=== PATIENT | female | born 2005 | race Caucasian/White ===

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

== ENCOUNTER 2024-05-25 16:09 | Emergency (ER) | payer OTHER, SELFPAY ==
[2024-05-25 16:18] VITALS: BP 133/86; PULSE 109; RESP 18; TEMP 36.9; O2SAT 100
--- NOTE | 2024-05-25 16:24 | ED.NAVMDI ---
HPI - Nausea/Vomiting/Diarrhea General Chief complaint: Nausea/Vomiting/Diarrhea Stated complaint: nausea/diarrhea History of Present Illness HPI Narrative: Patient presents requesting a work note. Patient states she started in with nausea and emesis x1 after she got home from work last night. Patient states she is tolerating liquids fairly well. No diarrhea no constipation no body aches and no fever nontoxic looking individual in the room. Related Data Allergies Allergy/AdvReac Type Severity Reaction Status Date / Time No Known Allergies Allergy Unverified 08/20/19 09:08 Review of Systems Review of Systems: CONSTITUTIONAL: Denies chills, or sweats. Reports fever and generalized body aches EYES: Denies visual changes, redness, or discharge. ENT: Denies otalgia. Reports nasal congestion runny nose and sore throat CARDIOVASCULAR: Denies chest pain, palpitations, or edema. RESPIRATORY: Denies dyspnea. Reports occasional cough GASTROINTESTINAL: Denies abdominal pain, nausea, vomiting, or diarrhea. GENITOURINARY: Denies dysuria or hematuria. SKIN: Denies rash or itching. MUSCULOSKELETAL: Denies back pain, joint pain, or myalgia. Reports generalized body aches NEUROLOGIC: Denies headache, numbness, or weakness. PSYCHIATRIC: Denies anxiety or depression. [facility] Past Medical History Medical History (Updated 05/25/24 @ 16:25 by BRENNEN Barakat) Depression Ear infection Strep throat Social History Social History Living arrangements: with family Occupation/Education: student Gender identity (if verbalized by the patient): Female Comments At time of signature, agree with nursing past medical, surgical, social and family history. There is no relevant family history pertinent to the presenting complaint Exam Narrative: The patient is a well-developed, well-nourished in no acute distress. SKIN: Skin is warm and dry without erythema, swelling or exudate. There is good turgor. No tenting. HEAD: Atraumatic. Normocephalic. No temporal or scalp tenderness. EYES: Moist and bright. Sclera and conjunctivae normal. No discharge. PERRLA. Extraocular motions intact. Gross visual acuity intact. EARS: Pinna is normal shape and contour. Clear external auditory canals. TM pearly ivan with good cone of light, no erythema or suppuration. Bilateral cerumen noted no gross hearing deficit. NOSE: pink, moist mucosa with good air movement. Clear rhinorrhea without nasal flaring. Septum midline. Mouth: moist mucous membranes. THROAT; mild erythema noted to posterior oropharynx with moderate postnasal drainage. Without exudate or ulceration.. Uvula midline. Normal movement of soft palate. NECK: Supple and nontender with full range of motion without discomfort. No meningeal signs. LUNGS: Equal and bilateral breath sounds without wheezes, rales or rhonchi. CHEST: The chest wall is without retractions or use of accessory muscles. HEART: Has a regular rate and rhythm without murmur, gallops, click or rub. ABDOMEN: Soft, nontender with positive active bowel sounds. No rebound tenderness. EXTREMITIES: Without cyanosis, clubbing or edema. Equal 2+ distal pulses and 2 second capillary refill noted. NEUROLOGIC: alert, active, . The patient moves all extremities with normal muscle strength. Normal muscle tone is noted. Normal coordination is noted. NO focal neurological findings noted. Course Course Level of Care: Express Care Visit Vital Signs Vital signs: Vital Signs Temperature 36.9 C 05/25/24 16:18 Pulse Rate 109 H 05/25/24 16:18 Respiratory Rate 18 05/25/24 16:18 Blood Pressure 133/86 05/25/24 16:18 Pulse Oximetry 100 05/25/24 16:18 Oxygen Delivery Room Air 05/25/24 16:18 Temperature 36.9 C 05/25/24 16:18 Pulse Rate 109 H 05/25/24 16:18 Respiratory Rate 18 05/25/24 16:18 Blood Pressure 133/86 05/25/24 16:18 Pulse Oximetry 100 05/25/24 16:18 Oxygen Delivery Room Air 05/25/24 16:18 Please MELISSA schedule a followup visit with your personal physician for further evaluation and treatment. Including recheck and discussion of your blood pressure. If your symptoms persist, change or worsen significantly before you can contact your personal physician then please, without delay, go to the emergency department for further evaluation Discharge Plan Discharge Clinical Impression: Nausea alone Patient Disposition: Home, Self-Care Condition: Stable Instructions: Antibiotic Form Additional Instructions: Clear liquids for the next 8-10 hours, then advance to a bland diet as tolerated A bland diet can consist of--BRAT diet which is bananas, rice, applesauce, and toast Avoid fried, greasy, fatty, fried foods Avoid caffeine, nicotine, and alcohol Return to your regular diet in the next 3-4 days Medication as directed for nausea and vomiting -If you have any worsening of symptoms or any other concerns please go to the ED immediately. Patient Language: Japanese Prescriptions: New ondansetron 4 mg tablet,disintegrating 4 mg PO Q8H PRN (Reason: nausea and vomiting) Qty: 10 0RF Follow-up/Referrals: Guillaume,Leticia August MD [Primary Care Provider] - Stand Alone Forms: Work/School Release IP
--- OUTSIDE RECORDS SUMMARY | 2024-05-29 23:31 | XMS_ITS | Patient Health Summary ---
Author Organization [facility] Address [address] [facility] [place] [address] Care Team Providers Care Hydrographic Engineer Name Role Phone Leticia Yoder MD Primary Care Provider Myesha Steward PA-C Unavailable [phone] Note from [facility],non-owned Affiliates and Associated Physician Practices is amultiple site organization consisting of ambulatory clinics and hospital sitesin [place], [place], [place] and [place]. This disclosure is being madepursuant to the Care Everywhere program and may not contain all information available regarding this patient. Last updated 18.[facility] Allergies No known active allergies Medications * Be aware that medications may not be up to date on this document. Alwaysverify current medications with the patient. 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 Never 05/22/2020 Average Number of Drinks Not on file 020 Frequency of Binge Drinking Not on file 05/12 Sex and Gender Information Value Date Recorded Sex Assigned at Not on file Gender Identity Not on file Sexual Orientation Not on file Last Filed Vital Signs Vital Sign Reading Time Taken Comments Blood Pressure 125/86 05/22/2020 6:05 PM PROJECT MANAGER INDUSTRIAL Pulse 64 05/22/2020 6:05 PM PROJECT MANAGER INDUSTRIAL Temperature 36.7 ??C (98 ??F) 05/22/2020 4:37 PM PROJECT MANAGER INDUSTRIAL Respiratory Rate 16 05/22/2020 6:30 PM PROJECT MANAGER INDUSTRIAL Oxygen Saturation 98% 05/22/2020 6:30 PM PROJECT MANAGER INDUSTRIAL Inhaled Oxygen Concentration - - Weight 55.2 kg (121 lb 11.1 oz) 05/22/2020 2:07 PM PRO[employer] MANAGER INDUSTRIAL Height 164 cm (5' 4.57 ) 05/14/2020 7:56 AM PROJECT MANAGER INDUSTRIAL Body Mass Index - - Procedures * ENDOTRACHEAL TUBE NOTE(Performed 05/22/2020) * CONTROL OROPHARYNGEAL /TONSILLAR HEMORRHAGE(Performed 05/22/2020) * PT PTT PANEL(Performed 05/22/2020) * CBC W AUTO DIFFERENTIAL(Performed 05/22/2020) * TYPE + SCREEN PANEL(Performed 05/22/2020) * BASIC METABOLIC PANEL (CALCIUM TOTAL)(Performed 05/22/2020) * ED CRITICAL CARE(Performed 05/22/2020) Performed for Post-tonsillectomy hemorrhage * GROSS EXAM PATHOLOGY (STL)(Performed 05/14/2020) Performed for Hypertrophy of tonsils, Acute recurrent tonsillitis * ENDOTRACHEAL TUBE NOTE(Performed 05/14/2020) * TONSILLECTOMY AND ADENOIDECTOMY(Performed 05/14/2020) Performed for Hypertrophy of tonsils, Acute recurrent tonsillitis * HCG URINE QUAL POCT NOTIFICATION(Performed 05/14/2020) Performed for Tonsillitis * HCG URINE QUALITATIVE - POCT (IP) INTERFACED(Performed 05/14/2020) * SARS-COV-2 (COVID-19) IN HOUSE(Performed 05/11/2020) Performed for Pre-operative clearance * XR SHOULDER RIGHT 1VW(Performed 02/20/2019) Performed for Dislocation of right shoulder joint, initial encounter * URINALYSIS REFLEX TO MICROSCOPIC NO CULTURE(Performed 03/14/2018) Performed for Arthralgia, unspecified joint, SNEHA positive * IMMUNOGLOBULINS IGG/IGM/IGA PANEL(Performed 03/05/2018) Performed for Arthralgia, unspecified joint, SNEAH positive * TISSUE TRANSGLUTAMINASE AB IGA(Performed 03/05/2018) Performed for Arthralgia, unspecified joint, SNEHA positive * TSH(Performed 03/05/2018) Performed for Arthralgia, unspecified joint, SNEHA positive * RHEUMATOID FACTOR BLOOD QUANTITATIVE(Performed 03/05/2018) Performed for Arthralgia, unspecified joint, SNEHA positive * HLA TYPING B27(Performed 03/05/2018) Performed for Arthralgia, unspecified joint, SNEHA positive * CYCLIC CITRULLINATED PEPTIDE(CCP) AB IGG(Performed 03/05/2018) Performed for Arthralgia, unspecified joint, SNEHA positive * COMPLEMENT C4(Performed 03/05/2018) Performed for Arthralgia, unspecified joint, SNEHA positive * COMPLEMENT C3(Performed 03/05/2018) Performed for Arthralgia, unspecified joint, SNEHA positive * COMPLEMENT TOTAL(Performed 03/05/2018) Performed for Arthralgia, unspecified joint, SNEHA positive * CHROMATIN ANTIBODY(Performed 03/05/2018) Performed for Arthralgia, unspecified joint, SNEHA positive * PUBLIC RELATIONS SENIOR ASSOCIATE ANTIBODY(Performed 03/05/2018) Performed for Arthralgia, unspecified joint, SNEHA positive * SCLERODERMA 70 (SCL) ANTIBODY(Performed 03/05/2018) Performed for Arthralgia, unspecified joint, SNEHA positive * SS-B (SJOGREN'S) ANTIBODY(Performed 03/05/2018) Performed for Arthralgia, unspecified joint, SNEHA positive * SS-A (SJOGREN'S) ANTIBODY(Performed 03/05/2018) Performed for Arthralgia, unspecified joint, SNEHA positive * STEWARD (SM) ANTIBODY MAURILIO(Performed 03/05/2018) Performed for Arthralgia, unspecified joint, SNEHA positive * DNA ANTIBODY DOUBLE STRANDED(Performed 03/05/2018) Performed for Arthralgia, unspecified joint, SNEHA positive * ERYTHROCYTE SEDIMENTATION RATE(Performed 03/05/2018) Performed for Arthralgia, unspecified joint, SNEHA positive * C-REACTIVE PROTEIN(Performed 03/05/2018) Performed for Arthralgia, unspecified joint, SNEHA positive * PATHOLOGY TISSUE EXAM (STL)(Performed 06/29/2015) Performed for Benign neoplasm of skin of cheek, external * REPAIR, INTERMEDIATE, FACE/EARS/EYELIDS/NOSE/ LIPS 2.5CM <(Performed 06/29/2015) Performed for Benign neoplasm of skin of cheek, external * EXCISION NEVUS FACE/SCALP(Performed 06/29/2015) Performed for Benign neoplasm of skin of cheek, external Results * ETT LINE PERFORMABLE (05/22/2020 4:01 PM PROJECT MANAGER INDUSTRIAL) Narrative Paul Peng DO - 05/22/2020 4:01 PM PROJECT MANAGER INDUSTRIAL Paul Peng DO ? 05/22/2020 ??4:03 PM Endotracheal Tube Placement: ? Patient Location: OR. Intubation Event Date/Time: ??05/22/2020 3:47 PM Procedure: intubation ([id number]). Procedure Section: ?? Sedation: under general anesthesia. Indications for Airway Management: ??anesthesia Procedure pretreatments used? ??No Induction: standard IV Patient Position: ??sniffing Mask Ventilation: not attempted. Blade Type: Aki Blade Size: 3 Laryngoscopy View: grade 1 (full cords) Tube: endotracheal tube Placement: oral Tube type: cuff - inflated Tube Size (MM): 7 Cuff Inflated With: air Number of Attempts: 1. Placement Verified By: direct visualization and CO2 monitor Tube secured with: ??adhesive tape. Dentition unchanged? ??Yes Difficult Airway? ??No. Procedure Start Time: 05/22/2020 3:47 PM. Staff Section ?? Anesthesia Provider: Paul Peng DO, Performed the procedure Colton Morales MD GENERAL ANESTHE ELIZABETH ORDERABLES * PT PTT PANEL (05/22/2020 2:55 PM PROJECT MANAGER INDUSTRIAL) PT 13.2 12.1 - 14.8 sec 05/22/2020 3:22 PM [facility] INR 1.0 0.9 - 1.1 05/22/2020 3:22 PM [facility] PTT 33.1 23.0 - 38.4 sec 05/22/2020 3:22 PM [facility] Blood BLOOD SPECIMEN / Unknown Venipuncture / Unknown 05/22/2020 2:55 PM PROJECT MANAGER INDUSTRIAL 05/22/2020 3:02 PM PROJECT MANAGER INDUSTRIAL Narrative [facility] - 05/22/2020 3:22 PM PROJECT MANAGER [employer]USTRIAL Conventional Warfarin Anticoagulant Therapy: INR Reference Range: ??2.0-3.0 Intensive Warfarin Anticoagulant Therapy: INR Reference Range: ? 2.5-3.5 Heparin Therapeutic Range for PTT: ??71.0 - 109.0 seconds. Amira Norton MD LAB - COAGULATION OR DERABLES Performing Organization Address City/State/[facility] Co de Phone Number [facility] [address] [place] [address] * (ABNORMAL) CBC W AUTO DIFFERENTIAL (05/22/2020 2:55 PM [facility]) [facility] WBC 7.8 4.5 - 14.5 x10E9/L 05/22/2020 3:08 PM [facility] WBC Corrected 05/22/2020 3:08 PM [facility] RBC 3.91(L) 4.10 - 5.10 x10E12/L 05/22/2020 3:08 PM [facility] Hemoglobin 12.9 12.0 - 16.0 gm/dL 05/22/2020 3:08 PM [facility] Hematocrit 35.8(L) 36.0 - 47.0 % 05/22/2020 3:08 PM [facility] MCV 91.6 78.0 - 98.0 fl 05/22/2020 3:08 PM [facility] MCH 33.0 25.0 - 35.0 pg 05/22/2020 3:08 PM [facility] MCHC 36.0 31.0 - 37.0 gm/dL 05/22/2020 3:08 PM [facility] Platelet Count 231 100 - 400 x10E9/L 05/22/2020 3:08 PM [facility] RDW-CV 11.8 11.5 - 14.0 % 05/22/2020 3:08 PM [facility] MPV 12.4(H) 6.0 - 9.5 fl 05/22/2020 3:08 PM [facility] Neutrophils % 68.5(H) 24.0 - 66.0 % 05/22/2020 3:08 PM [facility] Lymphocytes % 23.7 22.0 - 61.0 % 05/22/2020 3:08 PM [facility] Monocytes % 6.8 3.0 - 15.0 % 05/22/2020 3:08 PM [facility] Eosinophils % 0.1 0.0 - 10.0 % 05/22/2020 3:08 PM [facility] Basophils % 0.5 % 05/22/2020 3:08 PM [facility] Immature Granulocytes 0.4 % 05/22/2020 3:08 PM [facility] Neutrophil Absolute 5.30 1.08 - 9.57 x10E9/L 05/22/2020 3:08 PM [facility] Lymphocytes Absolute 1.84 0.99 - 8.85 x10E9/L 05/22/2020 3:08 PM [facility] Monocytes Absolute 0.53 0.14 - 2.18 x10E9/L 05/22/2020 3:08 PM [facility] Eosinophils Absolute 0.01 0 - 1.45 x10E9/L 05/22/2020 3:08 PM [facility] Basophils Absolute 0.04 0 - 0.29 x10E9/L 05/22/2020 3:08 PM [facility] Immature Granulocytes Absolute 0.03 0 - 0.15 x10E9/L 05/22/2020 3:08 PM [facility] nRBC Auto 0 /100 WBC 05/22/2020 3:08 PM [facility] Blood BLOOD SPECIMEN / Unknown Venipuncture / Unknown 05/22/2020 2:55 PM PROJECT MANAGER INDUSTRIAL 05/22/2020 3:02 PM [facility] Amira Norton MD LAB - HEMATOLOGY ORD ERABLES [facility] [employer] [place] [address] * TYPE + SCREEN PANEL (05/22/2020 2:54 PM [facility]) ABO Rh O POS 05/22/2020 3:42 PM [facility] Comment:No history; collect retype. Antibody Screen NEG 0 3:42 PM [facility] Blood Bank BLOOD SPECIMEN / Unknown Venipuncture / Unknown 05/22/2020 2:54 PM PROJECT MANAGER INDUSTRIAL 05/22/2020 3:01 PM PROJECT MANAGER INDUSTRIAL Amira Norton MD LAB - BLOOD BANK ORD DEVANBLES [facility] [address] [place] [address] * (ABNORMAL) BASIC METABOLIC PANEL (CALCIUM TOTAL) (05/22/2020 2:54 PM PROJECT MANAGER INDUSTRIAL) Pathologist [facility] Glucose 91 70 - 105 mg/dL 05/22/2020 3:20 PM [facility] Sodium 141 136 - 145 mmol/L 05/22/2020 3:20 PM [facility] Potassium 4.3 3.5 - 5.1 mmol/L 05/22/2020 3:20 PM [facility] Chloride 109(H) 98 - 107 mmol/L 05/22/2020 3:20 PM [facility] CO2 24 20 - 28 mmol/L 05/22/2020 3:20 PM [facility] Calcium 8.94(L) 9.08 - 10.48 mg/dL 05/22/2020 3:20 PM [facility] Anion Gap 8 5 - 20 mmol/L 05/22/2020 3:20 PM [facility] BUN 16.8 5.3 - 18.7 mg/dL 05/22/2020 3:20 PM [facility] Creatinine 0.77 0.61 - 1.07 mg/dL 05/22/2020 3:20 PM [facility] eGFR by MDRD 05/22/2020 3:20 PM [facility] Comment: eGFR calculations are not performed for children under 18 years old. eGFR by MDRD 05/22/2020 3:20 PM [facility] Comment: eGFR calculations are not performed for children under 18 years old. Blood BLOOD SPECIMEN / Unknown Venipuncture / Unknown 05/22/2020 2:54 PM PROJECT MANAGER INDUSTRIAL 05/22/2020 3:02 PM PROJECT MANAGER INDUSTRIAL Amira Norton MD LAB - CHEMISTRY ORDMartha PRESLEY [facility] [address] [place] [address] * Critical Care (05/22/2020 1:54 PM PROJECT MANAGER INDUSTRIAL) Narrative Amira Norton - 05/22/2020 1:54 PM PROJECT MANAGER INDUSTRIAL Amira Norton MD ? 05/22/2020 ??3:40 PM Critical Care Performed by: Amira Norton MD Authorized by: Amira Norton MD Critical care provider statement: ??Critical care time (minutes): ??35 ??Critical care was necessary to treat or prevent imminent or life-threatening deterioration of the following conditions: ??Circulatory failure ??Critical care was time spent personally by me on the following activities: ??Development of treatment plan with patient or surrogate, discussions with consultants, examination of patient, obtaining history from patient or surrogate, review of old charts and ordering and review of laboratory studies Amira Norton MD PROCEDURE/MINOR SURG ICAL ORDERABLES * GROSS EXAM PATHOLOGY (STL) (05/14/2020 10:04 AM PROJECT MANAGER INDUSTRIAL) Case Report Surgical Pathology Report ? Case: [id number] ? Authorizing Provider: ??Ximena Chen MD ?Collected: ? 05/14/2020 10:04 AM ? Ordering Location: ? [facility] ? Received: ?05/14/2020 10:30 AM ? Pathologist: ? Tameka Rangel MD ? Specimen: ?Tonsil(s) ? 05/14/2020 3:47 PM [facility] Final Diagnosis Gross diagnosis: [place] tonsils. 05/14/2020 3:47 PM [facility] Clinical History The patient is a 14-year-old girl with tonsillar hypertrophy and acute recurrent tonsillitis. 05/14/2020 3:47 PM [facility] Gross Description Submitted fixed in formalin in one container for gross examination only, labeled with the patient's name, Jerrod Harris, and bilateral tonsils, are two egg-shaped, pink-carrington palatine tonsils measuring 3 x 2 x 2 cm and 3 x 2.5 x 1.8 cm, weighing 9 g combined. On cut surface, the tonsils have a cerebriform yellow-carrington appearance. No sections are taken. (CT/ns) 05/14/2020 3:47 PM [facility] Embedded Images 05/14/2020 3:47 PM [facility] Pathology/Cytology SPECIMEN FROM TONSIL / Unknown 05/14/2020 10:04 AM PROJECT MANAGER INDUSTRIAL 05/14/2020 10:30 AM PROJECT MANAGER INDUSTRIAL Comment:Pre-op diagnosis: Hypertrophy of tonsils [J35.1] Acute recurrent tonsillitis [J03.91] Ximena Chen MD LAB - PATHOLOGY/CYTO LOGY ORDERABLES Performing Organization Address City/State/[facility] Co de Phone Number [facility] [address] [place] [address] * ETT LINE PERFORMABLE (05/14/2020 10:00 AM PROJECT MANAGER INDUSTRIAL) Narrative Zahra Sevilla MD - 05/14/2020 10:00 AM PROJECT MANAGER INDUSTRIAL Zahra Sevilla MD ? 05/14/2020 ??1:05 PM Endotracheal Tube Placement: ? Intubation Event Date/Time: ??05/14/2020 9:56 AM Procedure: intubation (20655). Procedure Section: ?? Sedation: IV sedation. Indications for Airway Management: ??airway protection Procedure pretreatments used? ??No Induction: standard IV Patient Position: ??sniffing Mask Ventilation: easy. Blade Type: Aki Blade Size: 3 Laryngoscopy View: grade 1 (full cords) Intubation Adjuncts: cricoid pressure Tube: SEVERIANO tube Placement: oral Tube type: cuff - inflated Tube Size (MM): 7 Depth of Insertion (CM): 21 Measured From: gums Cuff volume (mL): ??4 Cuff Inflated With: air Number of Attempts: 2. Ventilation between attempts: Yes. Placement Verified By: direct visualization CXR Findings: ETT in proper place. Tube secured with: ??adhesive tape. Dentition unchanged? ??Yes Difficult Airway? ??No. Procedure Start Time: 05/14/2020 9:56 AM. Staff Section ?? Anesthesia Provider: Zahra Sevilla MD, Performed the procedure Additional Comments: Intubated by Vishal Hi Zahra Sevilla MD GENERAL ANESTHESIA ORDERABLES * HCG URINE QUAL POCT NOTIFICATION (05/14/2020 9:30 AM PROJECT MANAGER INDUSTRIAL) Comment Notification Label Only - See Separate Report 05/14/2020 9:30 AM PROJECT MANAGER INDUSTRIAL [facility] Urine URINE / Unknown 0 8:15 AM PROJECT MANAGER INDUSTRIAL Ximena Chen MD LAB - URINALYSIS ORD ERABLES [facility] [employer] [place] [address] * HCG URINE QUALITATIVE - POCT (IP) INTERFACED (05/14/2020 8:17 AM PROJECT MANAGER INDUSTRIAL) HCG Qual Urine Negative Negative 05/14/2020 8:28 AM PROJECT MANAGER INDUSTRIAL [facility] Urine URINE / Unknown 05/14/2020 8 :17 AM PROJECT MANAGER INDUSTRIAL 05/14/2020 8:28 AM PROJECT MANAGER INDUSTRIAL Ximena Chen MD LAB - POINT OF CARE ORDERABLES [facility] [place] [address] * SARS-COV-2 (COVID-19) PRE-SURGICAL/PROCEDURE (05/11/2020 1:11 PM PROJECT MANAGER INDUSTRIAL) COVID-19 PCR Not detected Not detected 05/11/2020 10:56 PM PROJECT MANAGER INDUSTRIAL [facility] Microbiology SPECIMEN FROM NASOPHARYNGEAL STRUCTURE / Unknown Collection / Unknown 05/11/2020 1:11 PM PROJECT MANAGER INDUSTRIAL 05/11/2020 1:25 PM PROJECT MANAGER INDUSTRIAL Narrative [facility] - 05/11/2020 10:56 PM PROJECT MANAGER INDUSTRIAL This nucleic acid amplification assay performance was validated by [facility]. This test has been authorized by the Food and Drug administration (FDA)under an Emergency??Use Authorization (EUA). This test has been validated in accordance with the FDA's guidance document Policy for Diagnostic Testing in Laboratories Certified to perform High Complexity Testing under CLIA prior to Emergency Use Authorization for Coronavirus Disease-2019 during the Public Health Emergency issued on August 10, 2019. FDA independent review of this validation is pending. This test is only authorized for the duration of time the declaration that circumstances exist justifying the authorization of emergency use of in vitro diagnostic tests for detection of SARS-CoV-2 virus and/or diagnosis of COVID-19 infection under section 564(b)(1) of the Act, 21 U.S.C 360bbb-3 (b)(1), unless the authorization is terminated or revoked sooner. Fact Sheets for this EUA assay are available upon request. Ximena Chen MD LAB - MICROBIOLOGY O RDERABLES [facility] [address] [place] [address], [facility] [phone] * XR SHOULDER RIGHT 1VW (02/20/2019 11:33 AM CDT) Anatomical Region Laterality Modality Upper Extremity Radiographic Shena ging 02/20/2019 2:34 PM CDT Impressions 02/20/2019 2:38 PM CDT Normal axillary view of the right shoulder. Reading Radiologist: Armen Traylor MD on 02/20/2019 at 2:38 PM Narrative 02/20/2019 2:38 PM CDT XR SHOULDER RIGHT 1VW*[id number] 02/20/2019 11:31 AM INDICATION: Unspecified dislocation of right shoulder joint, initial encounter COMPARISON: None available at the time of dictation. TECHNIQUE: Single axillary view of the right shoulder. FINDINGS: The joints are appropriately aligned as viewed on this projection. There is no visible fracture. There are no stress changes. Procedure Note Armen Traylor MD - 02/20/2019 XR SHOULDER RIGHT 1VW*[id number] 02/20/2019 11:31 AM INDICATION: Unspecified dislocation of right shoulder joint, initial encounter COMPARISON: None available at the time of dictation. TECHNIQUE: Single axillary view of the right shoulder. FINDINGS: The joints are appropriately aligned as viewed on this projection. There is no visible fracture. There are no stress changes. IMPRESSION Normal axillary view of the right shoulder. Reading Radiologist: Armen Traylor MD on 02/20/2019 at 2:38 PM Myesha Steward PA-C DIAGNOSTIC IMAGING O RDERABLES * URINALYSIS REFLEX TO MICROSCOPIC NO CULTURE (03/14/2018 10:41 AM CDT) Color UA YELLOW YELLOW [facility] Appearance CLEAR CLEAR [facility] Specific [place] UA 1.028 1.001 - 1.035 [facility] pH UA 6.0 5.0 - 8.0 [facility] Glucose UA NEGATIVE NEGATIVE [facility] Bilirubin UA NEGATIVE NEGATIVE [facility] Ketone UA NEGATIVE NEGATIVE [facility] Blood UA NEGATIVE NEGATIVE [facility] Protein UA NEGATIVE NEGATIVE [facility] Nitrite UA NEGATIVE NEGATIVE [facility] Leukocyte UA NEGATIVE NEGATIVE [facility] Comment: REPORT COMMENT: SPLIT 03/05/2018 FROM [id number] FASTING:UNKNOWN Test Performed at: [id number] [id number] [place] [address] ??[phone] VELIA MATUTE DO,MPH Urine URINE SPECIMEN OBTAINED BY CLEAN CATCH PROCEDURE / Unknown 03/14/2018 10:41 AM CDT 03/14/2018 10:44 AM CDT Marc Laurymple DO LAB - URINAL YSIS ORDERABLES Performing Organization Address [facility] de Phone Number [facility] [address] [place] [phone] * CHROMATIN ANTIBODY (03/05/2018 8:38 AM CDT) Chromatin Nucleosomal Antibody <1.0 NEG <1.0 NEG AI [facility] Comment: Test Performed at: [facility] [address] ??[phone] VELIA MATUTE DO,MPH Blood BLOOD SPECIMEN / Unknown 03/05/2018 8:38 AM CDT 03/05/2018 8:39 AM CDT Marc Laurymple DO LAB - SEROLO GY ORDERABLES Performing Organization Address [facility] de Phone Number [facility] [phone] [place] [address] * TISSUE TRANSGLUTAMINASE AB IGA (03/05/2018 8:38 AM CDT) TTG Antibody IgA 1 <4 U/mL [facility] Comment: ?Value ??Interpretation ?<4 U/mL: No Antibody Detected ? >or=4 U/mL: Antibody Detected Test Performed at: [facility]/[address] ??[phone] NASRA GOODEN MD,PHD Blood BLOOD SPECIMEN / Unknown 03/05/2018 8:38 AM CDT 03/05/2018 8:39 AM CDT Marc Laurymple DO LAB - SEROLO GY ORDERABLES Performing Organization Address [facility] de Phone Number [facility] [address] [place] [address] * SM ANTIBODY MAURILIO (03/05/2018 8:38 AM CDT) SM Antibody <1.0 NEG <1.0 NEG AI [facility] Comment: Test Performed at: [facility] ??[phone] VELIA MATUTE DO,MPH Blood BLOOD SPECIMEN / Unknown 03/05/2018 8:38 AM CDT 03/05/2018 8:39 AM CDT Marc Reza DO LAB - CHEMIS TRY ORDERABLES Performing Organization Address [facility] Co de Phone Number [facility] [phone] [place] [address] * PUBLIC RELATIONS SENIOR ASSOCIATE ANTIBODY (03/05/2018 8:38 AM CDT) PUBLIC RELATIONS SENIOR ASSOCIATE Antibody <1.0 NEG <1.0 NEG AI [facility] Comment: Test Performed at: [facility] ??[phone] VELIA MATUTE DO,MPH Blood BLOOD SPECIMEN / Unknown 03/05/2018 8:38 AM CDT 03/05/2018 8:39 AM CDT Marc Reza DO I AM ATIS TRY ORDERABLES Performing Organization Address [facility] Co de Phone Number [facility] [phone] [place], [place] [id number] * RHEUMATOID FACTOR BLOOD QUANTITATIVE (03/05/2018 8:38 AM CDT) Rheumatoid Factor <14 <14 IU/mL [facility] Comment: Test Performed at: [email or web address] [address] [place], [place] ??[phone] VELIA MATUTE DO,MPH Blood BLOOD SPECIMEN / Unknown 03/05/2018 8:38 AM CDT 03/05/2018 8:39 AM CDT Marc Reza DO LAB [facility] TRY ORDERABLES Performing Organization Address [facility] Co de Phone Number [facility] [address] [place] [address] * C-REACTIVE PROTEIN (03/05/2018 8:38 AM CDT) Pathologist [facility] C-Reactive Protein 0.3 <8.0 mg/L [facility] Comment: Test Performed at: [facility] [address] [place], [place] ??[phone] VELIA MATUTE DO,MPH Blood BLOOD SPECIMEN / Unknown 03/05/2018 8:38 AM CDT 03/05/2018 8:39 AM CDT Marc Reza DO LAB - CHEMIS TRY ORDERABLES Performing Organization Address [facility] Co de Phone Number [facility] [id number] [place] [address] * HLA TYPING B27 (03/05/2018 8:38 AM CDT) Pathologist [facility] HLA-B27 Antigen NEGATIVE NEGATIVE [facility] Comment: Test Performed at: [facility] [address] [place], [place] ??[phone] DIONISIO LOPEZ MD,PHD,NURY Blood BLOOD SPECIMEN / Unknown 03/05/2018 8:38 AM CDT 03/05/2018 8:39 AM CDT Marc Reza DO Online [employer] TRY ORDERABLES Performing Organization Address [facility] de Phone Number [facility] [phone] [place] [address] * (ABNORMAL) COMPLEMENT CH50 (03/05/2018 8:38 AM CDT) Pathologist [facility] Complement Total CH50 >60(H) 31 - 60 U/mL [facility] Comment: Test Performed at: [facility] [employer] [address] [place], [place] ??[address] VELIA MATUTE DO,MPH Blood BLOOD SPECIMEN / Unknown 03/05/2018 8:38 AM CDT 03/05/2018 8:39 AM CDT Marc Reza DO LAB Fobbler TRY ORDERABLES Performing Organization Address [facility] Co de Phone Number [facility] [phone] [place] [address] * SS-B ANTIBODY (03/05/2018 8:38 AM CDT) Sjogren's Antibodies (SSB) <1.0 NEG <1.0 NEG AI [facility] Comment: Test Performed at: [facility] [address] [place], [place] ??[phone] VELIA MATUTE DO,MPH Blood BLOOD SPECIMEN / Unknown 03/05/2018 8:38 AM CDT 03/05/2018 8:39 AM CDT Marc Reza DO LAB - CHEMIS TRY ORDERABLES Performing Organization Address City/[facility] Co de Phone Number [facility] [address] [place] [address] * SS-A ANTIBODY (03/05/2018 8:38 AM CDT) Sjogren's Antibodies (SSA) <1.0 NEG <1.0 NEG AI [facility] Comment: Test Performed at: [facility] [place] [address] [place], [place] ??[address] VELIA MATUTE DO,MPH Blood BLOOD SPECIMEN / Unknown 03/05/2018 8:38 AM CDT 03/05/2018 8:39 AM CDT Marc Reza DO LAB - CHEMIS TRY ORDERABLES Performing Organization Address City/[facility] Co de Phone Number [facility] [address] [place] [address] * SCL70 ANTIBODY (03/05/2018 8:38 AM CDT) SCL-70 Antibody <1.0 NEG <1.0 NEG AI [facility] Comment: Test Performed at: [facility] [employer] [address] [place], [place] ??[address] VELIA MATUTE DO,MPH Blood BLOOD SPECIMEN / Unknown 03/05/2018 8:38 AM CDT 03/05/2018 8:39 AM CDT Marc Reza DO LAB - CHEMIS TRY ORDERABLES Performing Organization Address City/[facility] Co de Phone Number [facility] [address] [place] [address] * DNA ANTIBODY DOUBLE STRAND (03/05/2018 8:38 AM CDT) Pathologist [facility] dsDNA Antibody 1 IU/mL [facility] Comment: ? IU/mL ? Interpretation ? < or = 4 ?Negative ? 5-9 ? Indeterminate ? > or = 10 ?? Positive Test Performed at: [facility] [place] [id number] [place] [address] ??[phone] VELIA MATUTE DO,MPH Blood BLOOD SPECIMEN / Unknown 03/05/2018 8:38 AM CDT 03/05/2018 8:39 AM CDT Marc Reza DO LAB - HEMATO LOGY ORDERABLES Performing Organization Address City/State/[facility] Co de Phone Number [facility] [address] [place] [address] * CYCLIC CITRUL PEPTIDE AB IGG (CCP) (03/05/2018 8:38 AM CDT) Pathologist [facility] Cyclic Citrullinated Peptide Antibody IgG <16 UNITS [facility] Comment: Reference Range Negative: ?<20 Weak Positive: ? 20-39 Moderate Positive: ?? 40-59 Strong Positive: ? >59 Test Performed at: [facility] [address] [place], [place] ??[phone] VELIA MATUTE DO,MPH Blood BLOOD SPECIMEN / Unknown 03/05/2018 8:38 AM CDT 03/05/2018 8:39 AM CDT Marc Reza DO LAB - CHEMIS TRY ORDERABLES Performing Organization Address [facility] de Phone Number [facility] [address] [place] [address] * ESR - SED RATE WESTERGREN AUTO (03/05/2018 8:38 AM CDT) Pathologist [facility] Erythrocyte Sedimentation Rate Westergren 2 < OR = 20 mm/h [facility] Comment: Test Performed at: [address] ??[phone] DANIEL BROCK MD Blood BLOOD SPECIMEN / Unknown 03/05/2018 8:38 AM CDT 03/05/2018 8:39 AM CDT Marc Reza DO LAB - HEMATO LOGY ORDERABLES Performing Organization Address [facility] de Phone Number [address] [address] * COMPLEMENT C4 (03/05/2018 8:38 AM CDT) [facility] Complement C4 22 13 - 46 mg/dL [facility] Comment: Test Performed at: [facility] [address] ??[phone] VELIA MATUTE DO,MPH Blood BLOOD SPECIMEN / Unknown 03/05/2018 8:38 AM CDT 03/05/2018 8:39 AM CDT Marc Reza DO LAB - SEROLO GY ORDERABLES Performing Organization Address [facility] de Phone Number [address] [address] * TSH (03/05/2018 8:38 AM CDT) Pathologist [facility] TSH 1.71 mIU/L [facility] Comment: ? Reference Range ? 1-19 Years 0.50-4.30 ? Ranges ? First trimester ?? 0.26-2.66 ? Second trimester ??0.55-2.73 ? Third trimester ?? 0.43-2.91 REPORT COMMENT: FASTING:YES PATIENT UNABLE TO VOID; ADVISED TO RETURN FOR COLLECTION. Test Performed at: [facility] [place] [address] [place], [place] ??[address] VELIA MATUTE DO,MPH Blood BLOOD SPECIMEN / Unknown 03/05/2018 8:38 AM CDT 03/05/2018 8:39 AM CDT Marc Goodman Libia DO LAB - CHEMIS TRY ORDERABLES Performing Organization Address [facility] de Phone Number [facility] [phone] [place] [address] * IMMUNOGLOBULINS PANEL (inc IgA, IgG, IgM) (03/05/2018 8:38 AM CDT) IgA 150 70 - 432 mg/dL [facility] IgG 1050 893 - 1823 mg/dL [facility] IgM 145 52 - 367 mg/dL [facility] Comment: Test Performed at: [facility] [address] [place], [place] ??[address] VELIA MATUTE DO,MPH Blood BLOOD SPECIMEN / Unknown 03/05/2018 8:38 AM CDT 03/05/2018 8:39 AM CDT Marc Rex Libia DO LAB - CHEMIS TRY ORDERABLES Performing Organization Address [facility] de Phone Number [facility] [address] [place] [address] * COMPLEMENT C3 (03/05/2018 8:38 AM CDT) Complement C3 132 82 - 173 mg/dL [facility] Comment: Test Performed at: [facility] [address] [place], [place] ??[address] VELIA MATUTE DO,MPH Blood BLOOD SPECIMEN / Unknown 03/05/2018 8:38 AM CDT 03/05/2018 8:39 AM CDT Marc Reza DO LAB - CHEMIS TRY ORDERABLES [facility] [address] [place] [address] * GROSS + MICRO EXAM (STL) (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 Case: [id number] ? Authorizing Provider: ??Dandy Guzmán MD ?Collected: ? 06/29/2015 01:08 PM ? Ordering Location: ? [facility] ? Received: ?06/29/2015 02:03 PM ? Pathologist: ? Gretchen Blankenship MD ? Specimen: ?Cheek Lesion, Right cheek lesion ? 07/02/2015 1:13 PM [facility] Final Diagnosis SKIN, RIGHT CHEEK LESION, EXCISION: - EPIDERMAL INCLUSION [facility] - PYOGENIC GRANULOMA 07/02/2015 1:13 PM [facility] Clinical History The patient is a 9-year-old girl who underwent excision of a right cheek lesion; likely pyogenic granuloma, by exam. 07/02/2015 1:13 PM [facility] Gross Description Submitted fresh in one container for gross and microscopic examination labeled with the patient's name, Atiana Steven, and right cheek lesion, is 0.6 x 0.4 cm polypoid fragment of sesay-carrington skin with subcutaneous tissue excised to a depth of 0.2 cm. The surgical resection margin is painted with taran ink. The specimen is bisected, and entirely submitted in cassette A1. (/luis angel) 07/02/2015 1:13 PM [employer] [facility] Microscopic Description A) 1 H&E Slides show a polypoid fragment of skin with epidermis overlying dermis with a small cyst lined by stratified squamous epithelium with a granular layer, containing ??lamellated keratinaceous debris. Additionally in the dermis, thin walled vascular ??channels are surrounding by an inflammatory infiltrate with occasional pigmented macrophages. These findings are consistent with a regressing pyogenic granuloma. ??(NW/cayden) 07/02/2015 1:13 PM [facility] Pathology/Cytolo gy INCISIONAL BIOPSY OF LESION OF CHEEK / Unknown 06/29/2015 1:08 PM [employer]GER [employer] 06/29/2015 2:03 PM [facility] Dandy Guzmán MD LAB - PATHOLOGY/CYTO LOGY ORDERABLES Performing Organization Address City/State/[facility] Co de Phone Number [facility] [employer] [place] [address] Care Teams Hydrographic Engineer Relationship Specialty Start Date End Date Leticia Yoder MD PCP - General 08/14/14 Myesha Steward PAInesC [address] [place] [address] Physician Curtain Feller Blind[employer]ch 02/20/19
--- OUTSIDE RECORDS SUMMARY | 2024-05-29 23:31 | XMS_ITS | Encounter Summary ---
Author Organization [facility] Address [address] [place] [facility] [place] [address] Care Team Providers Care Laboratory Chemical Assistant Name Role Phone Leticia Yoder MD Primary Care Provider Myesha Steward PA-C Unavailable [phone] Reason for Visit * Auth/Cert Specialty Diagnoses / Procedures Referred By Aj guerrero Referred To Contact Diagnoses Hypertrophy of tonsils Acute recurrent tonsillitis Hypertrophy of tonsils [J35.1] Acute recurrent tonsillitis [J03.91] Procedures TONSILLECTOMY AND ADENOIDECTOMY Referral ID Status Reason Start Date Expiration Date Visits Re quested Visits Authorized [id number] 1 1 Encounter Details Date Type Department Care Team (Late st Contact Info) Description 05/14/2020 9:25 AM SPAGHETTI MACHINE OPERATOR - 05/14/2020 10:20 AM [facility] Surgery [address] [address] Ximena Chen MD TONSILLECTOMY AND ADENOIDECTOMY Surgery Details Date/Time Status Location OR Service Patient Class Case Class Case Type Trauma Case? 05/14/2020 9:25 AM Posted MAIN OR 02 ENT Surgery Day Care Elective > 5 days Panel 1 Procedure LRB Anes Op Region Wound Class Comments TONSILLECTOMY AND ADENOIDECTOMY N/A General Throat Clean Contaminated Surgeon Surgeon Role Service Panel Ximena Chen MD Primary ENT 1 Miguel Shepherd MD Resident - Assisting ENT 1 Special Needs Covid test 05/11 CGDBT/email documented in this encounter Social History Tobacco Use Types Packs/Day Years Used Date Smoking Tobacco: Never Smokeless Tobacco: Never Sex and Gender Information Value Date Recorded Sex Assigned at Not on file Gender Identity Not on file Sexual Orientation Not on file COVID-19 Exposure Response Date Recorded In the last month, have you been in contact with someone who was confirmed or suspected to have Coronavirus / COVID-19? No / Unsure 05/04/2020 9:38 AM SPAGHETTI MACHINE OPERATOR documented as of this encounter Last Filed Vital Signs Vital Sign Reading Time Taken Comments Blood Pressure 118/88 05/14/2020 8:26 AM SPAGHETTI MACHINE OPERATOR Pulse 64 05/14/2020 8:26 AM SPAGHETTI MACHINE OPERATOR Temperature 36.3 ??C (97.3 ??F) 05/14/2020 7:56 AM CS T Respiratory Rate 16 05/14/2020 8:26 AM SPAGHETTI MACHINE OPERATOR Oxygen Saturation 97% 05/14/2020 8:26 AM SPAGHETTI MACHINE OPERATOR Inhaled Oxygen Concentration - - Weight 56.7 kg (125 lb) 05/14/2020 7:56 AM SPAGHETTI MACHINE OPERATOR Height 164 cm (5' 4.57 ) 05/14/2020 7:56 AM SPAGHETTI MACHINE OPERATOR Body Mass Index 21.08 05/14/2020 7:56 AM SPAGHETTI MACHINE OPERATOR Body Mass Index Percentile 60.37% 05/14/2020 7:5 6 AM SPAGHETTI MACHINE OPERATOR Growth Chart: [facility] (Girls, 2- 20 Years) documented in this encounter Functional Status Functional Status Response Date of Assess ment Is person deaf or have serious hearing difficult y? No 05/14/2020 Is person blind or have serious difficulty seein g? No 05/14/2020 Does person have serious dif ficulty walking/climbing stairs? No 05/14/2020 Does person have difficulty dressing/bathing? No 05/14/2020 Does person have difficulty doing errands alone? No 05/14/2020 Cognitive Status Response Date of Assessm ent Does person have difficulty concentrating/remembering/making decisions? No 05/14/2020 documented as of this encounter Discharge Summaries * Miguel Shepherd - 05/14/2020 10:26 AM CST Images from the original note were not included. Attending Physician: Ximena Chen MD Office 05/14/20 10:26 AM ENT SURGERY DISCHARGE SUMMARY Patient ID: Name: Jerrod Harris MR#: [id number] Date of : 2005 Age: [age] year old Discharge Date: 05/14/20 Discharge Diagnosis: Adenotonsillar hypertrophy, recurrent tonsillitis Procedure: adenotonsillectomy Discharge Condition: Stable Discharge Procedure Orders Why you were hospitalized Order Specific Question Answer Comments Your discharge diagnosis is: Recurrent tonsillitis [1784135] Your discharge diagnosis is: Tonsillar hypertrophy [744318] No special diet needed Resume normal home diet as tolerated. Return to work/school Most children will limit their own activity after surgery. Expect to rest quietly for a few days after surgery. Your child should be home from school for 1 week after surgery and out of gym/sports for 2 weeks after surgery. Avoid strenuous activity for 2 weeks after surgery[address] Do not drive For children old enough to drive--do not drive while taking narcotic pain medication. When to go to the Emergency Room Go to the nearest Emergency Room for any of the following:?? -- bleeding: see below -- if Jerrod has a hard time breathing, or is taking fast, shallow breaths?? -- if Jerrod is making a high-pitched, harsh sound when she takes a breath?? -- fingernails, lips, or tongue/gums look blue?? -- if you can see Leóns abdomen and rib cage muscles move inward when she takes a breath?? -- if Jerrod is exhaused, or is not as alert?? -- if Jerrod has constant vomiting, or cannot eat or drink -- As quickly as necessary, please * call ENT office at [phone] (8am to 5pm M-F) * call ENT doctor personnel supervisor at [phone] (5pm to 8am M-F or weekends) * be prepared to go to the closest Emergency Room (any time) When to call provider Call your provider with questions or concerns. Bleeding: if there is any bleeding, please call us so we can evaluate the situation--an Emergency Room visit might be necessary. You should always go to an Emergency Room if you are worried. The amount of blood can be very small (little spots from nose or mouth) or large. Sometimes the bleeding stops on its own. Sometimes we have to take a child back to the operating room. Someone should be around your child for 2 weeks after surgery. We ask that your child not travel for 2 weeks after surgery. Fevers: low grade fevers are normal after surgery, and they are usually improved with the pain medication. Call us or return to the Emergency Room if the fever is above 102F in the mouth or above 101F in the armpit, if the child is coughing or having trouble breathing. Follow up with Primary Care Provider (PCP) Our records show your Primary Care Provider (PCP) is Leticia Yoder MD. Order Specific Question Answer Comments Follow Up Instructions: as scheduled Follow up with provider Order Specific Question Answer Comments Follow Up Instructions: follow up with ENT as needed for any questions/concerns. Please call [phone] to schedule. If you have questions about surgery or your child's recovery, please call our nurses at [phone]. Miguel Shepherd MD HETTI MACHINE OPERATOR documented in this encounter Medications at Time of Discharge Medication Sig Dispensed Refills Start Date End Date aspirin-acetaminophe n-caffeine 250-250-65 MG tablet Take by mouth every 4 hours as needed for Headache JUNE FE 07/01 1-20 MG-MCG tablet Take 1 tablet by mouth once daily 10/03/2019 riboflavin 400 MG capsule Take 1 capsule by mouth once daily 30 capsule 2 04/24/2020 acetaminophen (TYLENOL) 160 MG/5ML solution Take 20 mL by mouth every 6 hours as needed for Fever or Pain 237 mL 1 05/14/2020 05/22/2020 ibuprofen (ADVIL; MOTRIN) 100 MG/5ML suspension Take 20 mL by mouth every 6 hours as needed for Pain or Fever 237 mL 1 05/14/2020 05/22/2020 ibuprofen (MOTRIN) 600 MG tablet Take 600 mg by mouth every 8 hours as needed 03/04/2020 05/22/2020 naproxen (NAPROSYN) 375 MG tablet Take 375 mg by mouth every 12 hours as needed 03/19/2020 05/22/2020 naproxen (NAPROSYN) 500 MG tablet Take 1 tablet by mouth 2 times daily as needed for Pain 15 tablet 2 04/24/2020 05/22/2020 ondansetron, disintegrating, (ZOFRAN ODT) 4 MG tablet Take 1 tablet by mouth every 6 hours as needed for Nausea/Vomiting Allow tablet to dissolve on the tongue 16 tablet 04/24/2020 05/22/2020 oxyCODONE (ROXICODONE) 5 MG/5ML oral solution Take 2.5 mL by mouth every 4 hours as needed (Breakthrough pain not controlled by acetaminophen and ibuprofen.) 45 mL 05/14/2020 05/22/2020 documented as of this encounter H&P Notes * Ximena Chen MD - 05/14/2020 8:34 AM CST Images from the original note were not included. Attending Physician: Ximena Chen MD Office 05/14/20 8:34 AM Otolaryngology History and Physical Patient name: Jerrod Harris Date of : 2005 Today's Date: 05/14/20 HPI: Jerrod Harris is a 14 year old female with recurrent tonsillitis and tonsillar hypertrophy who presents to the hospital today for planned surgical procedure. No family history of bleeding disorders. Today, grandmother (guardian) reports no changes medically/sympomatically, and no new allergies forpatient. Patient denies fevers, SOB. 05/11/20 COVID-19 testing: negative. REVIEW OF SYMPTOMS: Within normal limits except as above. MEDICATIONS: No current facility-administered medications on file prior to encounter. Current Outpatient Medications on File Prior to Encounter Medication Sig Dispense Refill ??? 07/01 1-20 MG-MCG tablet Take 1 tablet by mouth once daily ALLERGIES: No Known Allergies IMMUNIZATIONS: UTD There is no immunization history on file for this patient. DEVELOPMENTAL HISTORY: Age appropriate PREVIOUS SERIOUS ILLNESS/SURGERY: Past Surgical History: Procedure Laterality Date ??? EXCISION/DESTRUCTION TISSUE/LESION Right 06/29/2015 Right; EXCISION RIGHT FACE LESION ??? PLASTIC SURGERY PROCEDURE Right 06/29/2015 Right; INTERMEDIATE WOUND CLOSURE PREVIOUS CHILDHOOD ILLNESS: Past Medical History: Diagnosis Date ??? Adenotonsillar hypertrophy 11/11/2019 ??? Headache 02/22/2018 ??? Pyogenic granuloma 08/26/2014 right cheek lesion ??? Recurrent tonsillitis 11/11/2019 ??? Shoulder dislocation 02/01/2019 right PERINENT FAMILY / SOCIAL HISTORY: Family History Problem Relation Name Age of Onset ??? Arthritis - Rheumatoid Neg Hx ??? Lupus Neg Hx ??? Thyroid Disease Neg Hx ??? Crohn's Disease Neg Hx ??? Ulcerative Colitis Neg Hx ??? Psoriasis Neg Hx ??? Sjogren's Syndrome Neg Hx ??? Celiac Disease Neg Hx PHYSICAL EXAM: BP 118/88 Pulse 64 Temp 97.3 ??F (Temporal) Resp 16 Ht 1.64 m (5' 4.57 ) Wt 56.7 kg (125 lb) SpO2 97% BMI 21.08 kg/m2 GEN: NAD HEAD: NCAT EYES: EOMI EARS: deferred NOSE: patent THROAT: clear NECK: supple HEART: skin warm LUNGS: unlabored breathing on room air NEURO: no focal findings or movement disorder noted SKIN: wnl ASSESMENT: Jerrod Harris is a 14 year old female with recurrent tonsillitis and tonsillar hypertrophy. PLAN: -To OR for adenotonsillectomy. -The risks, benefits, and alternatives of the proposed treatments were discussed. All questions were answered. The family made an informed decision to proceed. Miguel Shepherd MD HETTI MACHINE OPERATOR documented in this encounter Nursing Notes * Berenice Love RN - 05/06/2020 5:32 PM CST Surgery Instructions for Jerrod on , 2020 . Your child is required to have a Covid-19 test 2 to 5 days prior to surgery. The child will have toself-isolate between test and surgery. Please contact [phone]. [phone] if you need help arranging the appointment for testing. If not being done at a [facility] facility, please make sure the result of the test will be FAXED to [phone] no later than the day before surgery We will place this in the chart. If possible, bring a picture of the result or bring the paperwork with the result to the hospital on the day of surgery. Please call MELISSA if child lives with someone with COVID-19 or child has one or more of these COVID-19 symptoms: fever, respiratory symptoms (cough, shortness of breath), new loss of sense of smell ortaste, headache, sore throat or muscle pain. All visitors and patients, who are able, must wear a cloth face covering or mask at all times upon entering the hospital. Please bring your own cloth face coverings or masks. Children under the age of 2 should not wear face masks! Two adults will be able to come with your child. No one under 18 years old can come with you. Arrival Time: _6:45 AM_ A legal guardian must accompany patient with photo ID and Insurance card. If you have a Pharmacy card please bring this also. Obtain a VISITOR PASS at the Information Desk on the Ground Level. From the medical front desk specialist take the elevator ???A?? to the 2nd floor , walk down the hogan to your right to Surgery Registration (at the end of the hogan). Please have a photo ID of parent/guardian and patient insurance card. After registration you will be escorted to the pre op area. Please call the surgeon???s office immediately if: ??? Your insurance has changed ??? You added a secondary insurance ??? You changed your phone number Eating/Drinking Instructions before Surgery : Solids (including Milk and Thickeners) until: _midnight Monday night_ Clears listed below until: _5:00 AM _ Nothing at all After: _5:00 AM_ After midnight night before surgery nothing (this includes NO candy or chewing gum) EXCEPT: 1. Water 2. Apple Juice 3. Clear Pedialyte 4. Sprite/7-UP Your child may brush their teeth prior to arrival. Remind them not to swallow anything while brushing. Medications: Take medications if instructed by doctor with a clear liquid listed above by 5:00 AM No ibuprofen, naproxen or Excedrin for 5 days prior to surgery No Aspirin for 2 weeks prior to surgery Tylenol is OK if needed No vitamins/iron on day of surgery Bathing: Have child bathe and wash hair Dress in clean/comfortable clothing that is easy to remove Remove nail solomon islander/overlays. BRING: ??? One wipe able comfort Item or distraction item Do NOT Bring: ??? Jewelry and valuables (including removal of All piercings) ??? Metal Hair accessories ??? Contact lens Call Now if your child has had any illness in the last 6 weeks - especially something like flu/croup/pneumonia/bronchiolitis (RSV)/asthma flares. Also be aware that if your child has a fever/diarrhea/cough/wheezing/chest congestion on the day of surgery anesthesia will likely cancel the procedure! Other Important Information: ??? Girls who have started their menstrual cycles will need to provide a urine sample at the hospital on the day of surgery. ??? If your child has Any Other Appointments in the hospital on the day of surgery please notify us. ??? If your phone number changes prior to surgery please call us at the number below. ??? Follow this link for directions to the hospital. Questions: Please call Berenice Jones or Olivia at [phone] or [phone]. M-F 8:30am - 5:00pm. *Your surgery could be cancelled if: ??? You are not in surgery registration at your given arrival time ??? You do not report insurance changes to surgeon???s office ??? You do not follow eating and drinking instructions prior to surgery Follow this link ???[facility]?? to our video. Hotels in the area Thank you! HETTI MACHINE OPERATOR documented in this encounter OR Notes * Operative - Ximena Chen MD - 05/14/2020 10:24 AM CST OTOLARYNGOLOGY HEAD AND NECK SURGERY OPERATIVE NOTE Patient Name: Jerrod Harris Patient : 2005 CSN: [id number] Date of Procedure: 05/14/2020 Pre-Op Diagnosis: Adenotonsillar hypertrophy, recurrent tonsillitis Post-Op Diagnosis: Same Attending surgeon: Ximena Chen MD Resident surgeon: Miguel Shepherd MD Procedure: Tonsillectomy & adenoidectomy Anesthesia: General endotracheal Findings: - Tonsils 3+ bilaterally. - Adenoids 1+. Indications for procedure: Jerrod Harris is a 14 year old female with adenotonsillar hypertrophy, recurrent tonsillitis. The patient presents today for adenotonsillectomy. Risks & benefits were discussed with the patient'smom who agrees to proceed. Details of Procedure: After appropriate informed consent was obtained, the patient was taken to the operating room and placed in a supine position on the table. General anesthesia was then induced. Patient's dentition wasnoted to be intact with braces and age appropriate. A McIvor mouth gag was placed in the patient's mouth and opened to reveal tonsils which were 3+ in size. The palate was checked by palpation and visualization and noted to have no submucous cleft. The tonsils were grasped with a curved Allis clampand coblation at settings of 7 and 3 were used to dissect them out from the tonsillar fossa. A red rubber catheter was then placed through each nostril and around the soft palate so as to retract it anteriorly. A mirror was used to visualize the adenoids which were noted to be 1+ in size. These were then fully ablated to the choana using coblation at settings of 9 and 3. The red rubber catheters were then removed. Mouth gag closed for 30 seconds and reopened to assess for bleeding. No further bleeding was noted.The patient was then allowed to awaken whereupon the patient was extubated & taken to recovery in stable condition. Ximena Petty MD was present for the entirety of this case. Estimated Blood Loss: Minimal, <5 mL Complications: None Condition: Stable Dispo: home. Plan: - Acetaminophen and ibuprofen for pain. - Oxycodone for breakthrough pain not controlled by acetaminophen and ibuprofen. - Follow up as needed. Miguel Shepherd MD 05/14/2020 HETTI MACHINE OPERATOR documented in this encounter Plan of Treatment Not on file documented as of this encounter Procedures Procedure Name Priority Date/Time Associated Diagnosis Comments GROSS EXAM PATHOLOGY (STL) STAT 05/14/2020 10:04 AM SPAGHETTI MACHINE OPERATOR Hypertrophy of tonsils Acute recurrent tonsillitis TONSILLECTOMY AND ADENOIDECTOMY 05/14/2020 9:47 AM SPAGHETTI MACHINE OPERATOR Hypertrophy of tonsils Acute recurrent tonsillitis Special Needs Covid test 05/11 CGDBT/email HCG URINE QUAL POCT NOTIFICATION Routine 05/14/2020 9:30 AM SPAGHETTI MACHINE OPERATOR Tonsillitis HCG URINE QUALITATIVE - POCT (IP) INTERFACED Routine 05/14/2020 8:17 AM SPAGHETTI MACHINE OPERATOR documented in this encounter Results * GROSS EXAM PATHOLOGY (STL) (05/14/2020 10:04 AM SPAGHETTI MACHINE OPERATOR) Case Report Surgical Pathology Report ? Case: [id number] ? Authorizing Provider: ??Ximena Chen MD ?Collected: ? 05/14/2020 10:04 AM ? Ordering Location: ? [facility] ? Received: ?05/14/2020 10:30 AM ? Pathologist: ? Tameka Rangel MD ? Specimen: ?Tonsil(s) ? 05/14/2020 3:47 PM SPAGHETTI MACHINE OPERATOR [facility] Final Diagnosis Gross diagnosis: [place] tonsils. 05/14/2020 3:47 PM [facility] Clinical History The patient is a 14-year-old girl with tonsillar hypertrophy and acute recurrent tonsillitis. 05/14/2020 3:47 PM [facility] Gross Description Submitted fixed in formalin [...] sections are taken. (CT/ns) 05/14/2020 3:47 PM SPAGHETTI MACHINE OPERATOR [facility] Embedded Images 05/14/2020 3:47 PM SPAGHETTI MACHINE OPERATOR [facility] Pathology/Cytology SPECIMEN FROM TONSIL / Unknown 05/14/2020 10:04 AM SPAGHETTI MACHINE OPERATOR 05/14/2020 10:30 AM SPAGHETTI MACHINE OPERATOR Comment:Pre-op diagnosis: Hypertrophy of tonsils [J35.1] Acute recurrent tonsillitis [J03.91] Narrative Authorizing Provider Result Clifford Chen MD LAB - PATHOLOGY/CYTO LOGY ORDERABLES Performing Organization Address [facility] Co de Phone Number [facility] [place] [address] * HCG URINE QUAL POCT NOTIFICATION (05/14/2020 9:30 AM SPAGHETTI MACHINE OPERATOR) Comment Notification Label Only - See Separate Report 05/14/2020 9:30 AM [facility] Urine URINE / Unknown 0 8:15 AM SPAGHETTI MACHINE OPERATOR Narrative Authorizing Provider Result Clifford Chen MD LAB - URINALYSIS ORD ERABLES Performing Organization Address [facility] Co de Phone Number [facility] [address] [place] [address] * HCG URINE QUALITATIVE - POCT (IP) INTERFACED (05/14/2020 8:17 AM SPAGHETTI MACHINE OPERATOR) HCG Qual Urine Negative Negative 05/14/2020 8:28 AM SPAGHETTI MACHINE OPERATOR [facility] Urine URINE / Unknown 05/14/2020 8 :17 AM SPAGHETTI MACHINE OPERATOR 05/14/2020 8:28 AM SPAGHETTI MACHINE OPERATOR Narrative Authorizing Provider Result Clifford Chen MD LAB - POINT OF CARE ORDERABLES [facility] [place] [address] documented in this encounter Visit Diagnoses Diagnosis Tonsillitis- Primary Acute tonsillitis Hypertrophy of tonsils Hypertrophy of tonsils alone Acute recurrent tonsillitis Acute tonsillitis Hypertrophy of tonsils Hypertrophy of tonsils alone Acute recurrent tonsillitis Acute tonsillitis documented in this encounter Administered Medications Inactive Administered Medications - up to 3 most recent administrations Medication Order MAR Action Action Date Dose Rate Site 0.9% NaCl injection 2-10 mL 2-10 mL, Intracatheter, PRN, Other, Starting on Nathaly 05/14/20 at 0819, Until Nathaly 05/14/20 at 1402, PIV flush Use positive pressure technique for last 0.5 ml. 2 ml for saline lock flush. 10 ml for syringe flush., Pre-op 0.9% nacl irrigation solution PRN, Starting on Nathaly 05/14/20 at 1002, Until Nathaly 05/14/20 at 1041, Intra-op $ Given 05/14/2020 10:02 AM SPAGHETTI MACHINE OPERATOR 1,000 mL Operative Site diphenhydrAMINE (BENADRYL) injection 12.5 mg 12.5 mg, Intravenous, POST-OP MULTIPLE, Starting on Nathaly 05/14/20 at 1031, Until Nathaly 1220 at 1402, May repeat first dose every 10 minutes to max dose: 1 mg/Kg or 50 mg whichever is less, PACU HYDROmorphone (DILAUDID) injection 0.2 mg 0.2 mg, Intravenous, POST-OP MULTIPLE, Starting on Nathaly 05/14/20 at 1031, Until Nathaly 1220 at 1402, High Risk. High Alert Medication. May repeat dose every 5 min. Do not exceed 0.15 mg/kg/hr, PACU isolyte-S pH 7.4 infusion at 100 mL/hr, Intravenous, POST-OP CONTINUOUS, Starting on Nathaly 05/14/20 at 1045, Until Nathaly 20 at 1402, Continue Fluids at current rates, until current bag is finished. Then Switch to fluids as ordered for floor., PACU Current Rate 05/14/2020 10:33 AM SPAGHETTI MACHINE OPERATOR 100 mL/hr documented in this encounter Active and Recently Administered Medications Times are shown in SPAGHETTI MACHINE OPERATOR. Scheduled Medication Order 05/12/2020 05/13/2020 05/14/2020 diphenhydrAMINE (BENADRYL) injection 12.5 mg 12.5 mg, Intravenous, POST-OP MULTIPLE, Starting on Nathaly 05/14/20 at 1031, Until Nathaly 05/14/20 at 1402, May repeat first dose every 10 minutes to max dose: 1 mg/Kg or 50 mg whichever is less, PACU HYDROmorphone (DILAUDID) injection 0.2 mg 0.2 mg, Intravenous, POST-OP MULTIPLE, Starting on Nathaly 05/14/20 at 1031, Until Nathaly 05/14/20 at 1402, High Risk. High Alert Medication. May repeat dose every 5 min. Do not exceed 0.15 mg/kg/hr, PACU Continuous Medication Order 05/12/2020 05/13/2020 05/14/2020 isolyte-S pH 7.4 infusion at 100 mL/hr, Intravenous, POST-OP CONTINUOUS, Starting on Nathaly 05/14/20 at 1045, Until Nathaly 05/14/20 at 1402, Continue Fluids at current rates, until current bag is finished. Then Switch to fluids as ordered for floor., PACU 1033 (Current Rate - Provider: Joel Yañez, KEVIN)1232 (Stopped - Provider: Margarita Malave RN) PRN Medication Order 05/12/2020 05/13/2020 05/14/2020 0.9% NaCl injection 2-10 mL 2-10 mL, Intracatheter, PRN, Other, Starting on Nathaly 05/14/20 at 0819, Until Nathaly 05/14/20 at 1402, PIV flush Use positive pressure technique for last 0.5 ml. 2 ml for saline lock flush. 10 ml for syringe flush., Pre-op 0.9% nacl irrigation solution (CANCELED) PRN, Starting on Nathaly 05/14/20 at 1002, Until Nathaly 05/14/20 at 1041, Intra-op 1002 ($ Given - Prov ider: Miguel Shepherd - Comment: 500 ml bag for coblator irrigation) documented in this encounter Care Teams Laboratory Chemical Assistant Relationship Specialty Start Date End Date Leticia Yoder MD PCP - General 08/14/14 Myesha Steward PA-C [address] [address] Physician Cricket Coach 02/20/19 documented as of this encounter
--- OUTSIDE RECORDS SUMMARY | 2024-05-29 23:31 | XMS_ITS | Encounter Summary ---
Author Organization [facility] Address [address] [place] [address] Care Team Providers Care Abstract Checker Name Role Phone Leticia Yoder MD Primary Care Provider Myesha Steward PA-C Unavailable [phone] Reason for Visit * Reason Comments Headache Having headaches 4 - 5 times weekly. Went to bed all day yesterday with a headache. Took Excedrin yesterday and used ice packs Encounter Details Date Type Department Care Team (Latest Contact Info) Description 04/24/2020 1:10 PM CLIPPING MARKER - 04/24/2020 11:59 PM [facility] Hospital Encounter [facility] Pediatrics - Neurology [address] [place] [id number] Jean Mayr MD [address] [place] [id number] Discharge Disposition: Home or Self Care Social History Tobacco Use Types Packs/Day Years Used Date Smoking Tobacco: Never Smokeless Tobacco: Never Sex and Gender Information Value Date Recorded Sex Assigned at Not on file Gender Identity Not on file Sexual Orientation Not on file documented as of this encounter Last Filed Vital Signs Vital Sign Reading Time Taken Comments Blood Pressure 110/64 04/24/2020 1:30 PM CLIPPING MARKER Pulse - - Temperature - - Respiratory Rate - - Oxygen Saturation - - Inhaled Oxygen Concentration - - Weight 58 kg (127 lb 13.9 oz) 04/24/2020 1:30 PM CLIPPING MARKER Height 163.5 cm (5' 4.37 ) 04/24/2020 1:30 PM CS T Body Mass Index 21.7 04/24/2020 1:30 PM CLIPPING MARKER Body Mass Index Percentile 67.12% 04/24/2020 1:3 0 PM CLIPPING MARKER Growth Chart: [facility] (Girls, 2- 20 Years) documented in this encounter Functional Status Functional Status Response Date of Assess ment Is person deaf or have serious hearing difficult y? No 06/29/2015 Is person blind or have serious difficulty seein g? No 06/29/2015 Does person have serious dif ficulty walking/climbing stairs? No 06/29/2015 Does person have difficulty dressing/bathing? No 06/29/2015 Does person have difficulty doing errands alone? No 06/29/2015 Cognitive Status Response Date of Assessm ent Does person have difficulty concentrating/remembering/making decisions? No 06/29/2015 documented as of this encounter Discharge Instructions * Patient Instructions* Jean Mary MD - 04/24/2020 2:33 PM CLIPPING MARKER 1. Keep headache diary 2. Maintain active lifestyle 3. Eat healthy diet, and do not skip meals 4. Drink plenty of water, and avoid caffeine regularly. 5. Sleep: 1. Maintain good sleep routine. 2. Avoid distractions at bedtime such as TV, computer. 3. Get at least 8-10 hours of sleep nightly 6. Do not use pain medication (such as Tylenol, Ibuprofen) more than 3-4 times/week in order to avoid medication overuse headaches 7. Use Anaprox DS 500 mg twice a day as needed only for headaches - take at onset of headache 8. If Anaprox is ineffective within 30-45 minutes, then may take - 1 tab as needed for headaches. May repeat in 2-4 hours if no relief. No more than 2 tabs in 24 hours. 9. Start Riboflavin 400mg at bedtime. Take regularly and as prescribed. 10. Fincastle balm - Menthol topical ointment available over the counter 11. Call in 4-6 weeks with update regarding headaches, sooner for concerns PING MARKER documented in this encounter Medications at Time [...] 05/14/2020 05/22/2020 documented as of this encounter Progress Notes * Jean Mary MD - 04/24/2020 4:18 PM CST Images from the original note were not included. Division of Pediatric Neurology [facility]. ? Dept Name: Jerrod Harris Date: 04/24/2020 : 2005 Age: [age] year old Pediatric Neurology Clinic Visit Assessment & Plan Chronic headache 14 year old with hx of chr tonsillitis presenting with chronic headaches - about 4 a week. Headaches likely triggered by concussion x2. Has characteristics of both tension type headaches and migraineheadaches - especially the severe. Exam non focal, fundii sharp. She will benefit from prophylacticmedications. TnA will also benefit her KEVIN and tonsillar hypertropthy. Plan: - Start Riboflavin 400mg daily - Abortive - Naproxen 500mg PRN for headaches - Zofran PRN for nausea - Headache hygiene - Follow up in 3 months Subjective / Objective Chief Complaint Headache (Having headaches 4 - 5 times weekly. Went to bed all day yesterday with a headache. Took Excedrin yesterday and used ice packs) History of Present Illness Jerrod Harris is a 14 year old female that was seen today at the Pediatric Neurology clinic for a New Visit. She was accompanied today by her mother.14 year old with hx of chronic tonsillitis presenting for headaches. Headaches started about 2 years ago but more bothersome since Jun 2019. Band like but mostly bitemporal, pulsating, severe headaches associated with nausea, vomiting - about 4 times so far. Photophobia +. Physical exertion makes it worse. Moderate headaches can push through. Headaches last hours sometimes all day. No headache while waking, on bending headache does not increase. Has about 4 headaches a week - 2 severe, 2 moderate. Takes Exedrin that helps headaches the best - daylin moderate ones, nothing helps severe headaches. Limited response to Naproxen - unsure ofthe dose. Snores at night, has chronic tonsillitis - has scheduled TnA for May 14. Lifestyle - does not skip meals, drinks lot of water - urine is clear, sleeps about 5hours per night - due to daytime napping, no caffeine intake, stress - some social changes with moving to live with grandma but coping well more recently, screen time - limited to about 2 hours aside form [employer] school. Has suffered 2 concussions - Jun 2018 and Apr 2019. Both during cheerleading - once thrown to the floor during a back flip, other time - another team mate fell on her. Both times no LOC, neuroimagingdone with one - negative. Mostly, headaches and confusion after. Family hx - father with migraines History Past Medical History: Diagnosis Date ??? Adenotonsillar hypertrophy 11/11/2019 ??? Headache 02/22/2018 ??? Pyogenic granuloma 08/26/2014 right cheek lesion ??? Recurrent tonsillitis 11/11/2019 ??? Shoulder dislocation 02/01/2019 right Past Surgical History: Procedure Laterality Date ??? EXCISION/DESTRUCTION TISSUE/LESION Right 06/29/2015 Right; EXCISION RIGHT FACE LESION ??? PLASTIC SURGERY PROCEDURE Right 06/29/2015 Right; INTERMEDIATE WOUND CLOSURE Family History Problem Relation Name Age of Onset ??? Arthritis - Rheumatoid Neg Hx ??? Lupus Neg Hx ??? Thyroid Disease Neg Hx ??? Crohn's Disease Neg Hx ??? Ulcerative Colitis Neg Hx ??? Psoriasis Neg Hx ??? Sjogren's Syndrome Neg Hx ??? Celiac Disease Neg Hx Family Dynamics Special Custody concerns: No Education Grade: 10th Social History Social History Narrative Lives with grandma and grandpa Review of Systems Constitutional: (-) fever, (-) fatigue and (-) appetite change Eyes: (-) eye discharge and (-) eye itching ENT: (-) otalgia, (-) hearing loss, (-) epistaxis, (-) nasal congestion, (-) dysphagia and (-) change in voice Cardiovascular: (-) chest pain, (-) palpitations, (-) leg swelling and (-) chest tightness Respiratory: (-) cough, (-) shortness of breath and (-) chest tightness Gastrointestinal: (-) diarrhea, (-) abdominal pain and (-) constipation Genitourinary: (-) change in urine output, (-) bladder incontinence, (-) dysuria and (-) abdominal / pelvic pain Musculoskeletal: (-) myalgia, (-) joint swelling and (-) muscle weakness Integumentary / Skin: (-) angioedema, (-) bruising and (-) abrasion Neurological: (-) gait disturbance, (-) developmental delay, (-) tingling in right leg and (-) burning in right leg Psychiatric / Behavioral: (-) abnormal behavior, (-) self injurious behavior, (- ) anxiety and (-) depression Endocrine: (-) excessive appetite and (-) heat intolerance Hematologic / Lymphatic: (-) adenopathy and (-) excessive bruising Allergy / Immunology: (-) seasonal allergies and (-) immune deficiency Physical Exam Vitals: 04/24/20 1330 BP: 110/64 Weight: 58 kg (127 lb 13.9 oz) Height: 1.635 m (5' 4.37 ) Orthostatic Vitals: No data found in the last 1 encounters. Constitutional: Active, well-developed and well-nourished Head: Normocephalic Ears: Normal tympanic membranes Eyes: Pupils are equal, round, and reactive to light, conjunctivae normal and red reflex is presentbilaterally Nose: Nose normal Throat: Right tonsil: 3+ Left tonsil: 3+ Mouth: moist mucous membranes Neck: Normal range of motion and trachea midline Cardiovascular: S1 normal, S2 normal, femoral and radial pulses are simultaneous and regular rhythm Pulmonary: Breath sounds normal, normal air entry and effort normal Abdominal: Soft No tenderness and no definite mass Bowel sounds: normal Musculoskeletal: Normal range of motion and normal muscle mass Skin: Warm, moist and turgor normal Neurological: Mental status: - Orientation: oriented to person, place and time - Memory: normal - Speech: normal speech - Language: follows three-step commands CN II: normal visual acuity and normal visual lamas CN III, IV, : normal extraocular movement, normal lids and PERRL CN V: normal CN VII: normal CN VIII: normal CN IX, X: palate symmetrical and normal gag reflex CN XI: normal CN XII: normal Motor: normal muscle bulkno fasciculations present - Muscle tone: normal - Strength: normal strength Sensory: - Sensation: normal Deep tendon reflexes: - Brachioradialis: R - 2+ L - 2+ - Biceps: R - 2+ L - 2+ - Triceps: R - 2+ L - 2+ - Finger flex: R - 2+ L - 2+ - Hamstring: R - 2+ L - 2+ - Patellar: R - 2+ L - 2+ - Achilles: R - 2+ L - 2+ Coordination: normal coordination Gait: normal casual, toe, heel and tandem gait Allergies Patient has no known allergies. Labs No results found for this visit on 04/24/20. Medications Prior to Visit ??? squheyj-lkunudfcqwili-zobaxled 250-250-65 MG tablet Take by mouth every 4 hours as needed for Headache ??? ibuprofen (MOTRIN) 600 MG tablet Take 600 mg by mouth every 8 hours as needed ??? 07/01 1-20 MG-MCG tablet Take 1 tablet by mouth once daily ??? naproxen (NAPROSYN) 375 MG tablet Take 375 mg by mouth every 12 hours as needed Encounter Orders Orders Placed This Encounter ??? riboflavin 400 MG capsule ??? naproxen (NAPROSYN) 500 MG tablet ??? ondansetron, disintegrating, (ZOFRAN ODT) 4 MG tablet Follow Up No follow-ups on file. Jean Adams MD PING MARKER Associated attestation - Ирина Hoff MD - 04/27/2020 12:12 AM CLIPPING MARKER Attending Note: I saw and examined the patient with the Fellow and agree with their findings and plan. Briefly, Jerrod Harris is a 14 year old with chronic tonsillitis, coming in for headaches., For 2 years. June 2019 has gotten worse. She has had 2 concussions with first in Jun 2018.she had cheering related injury. Imaging was noted to be normal. She was feeling groggy and woozy. She continued to cheer and April 2019 somebody fell on her as the second concussion. Since June 2019 she has had more frequent. She gets 2 bad headaches a week and 2 not so bad. Can last several hours. Its bitemporal and pulsating in quality. Associated with nausea with the bad ones and photophobia. Denies phonophobia. With worst one has to lie down in nurses office. She has vomited 1-2 times. No auras no weakness or numbness. She has had multiple recurrent strep infections and lots of antibiotics. She has been evaluated by ENT. She does snore. Sleep perry 5 hours of sleep. Concern for KEVIN. She eats 3 good meals. Good hydration with clear urine. No caffeine intake. Screen time is increased given virtual school. She takes excedrin. Sometimes this takes the edge off. Ice packs help. Moved to grandmothers house this year as issue with substance use. Exam: Exam is intact with patient alert, oriented to self, place, time. Comprehension intact. Speech is fluent. PERRLA. EOMI. CN 2-12 intact. Strength 5/5 B/L. DTR 2+ symmetric. Sensations intact to LT/PP/Vib/Temp. No dysmetria. Able to tandem, toe and heel walk. A/P: Migraine without aura. Prophylaxis: Riboflavin 400 mg once daily. Abortive therapy: Naproxen 500 mg as needed. Fincastle balm as needed. Call in 1 month. Follow up in 3 months. Ирина Hoff MD Pediatric Neurologist/Epileptologist I spent 60 total minutes with the patient, of which 50% were spent in counseling the patient and parent regarding diagnosis, prognosis, management. * Jean Mary MD - 04/24/2020 4:02 PM CST Chief Complaint Headache (Having headaches 4 - 5 times weekly. Went to bed all day yesterday with a headache. Took Excedrin yesterday and used ice packs) History of Present Illness Jerrod Harris is a 14 year old female that was seen today at the Pediatric Neurology clinic for a New Visit. She was accompanied today by her mother.14 year old with hx of chronic tonsillitis presenting for headaches. Headaches started about 2 years ago but more bothersome since Jun 2019. Band like but mostly bitemporal, pulsating, severe headaches associated with nausea, vomiting - about 4 times so far. Photophobia +. Physical exertion makes it worse. Moderate headaches can push through. Headaches last hours sometimes all day. No headache while waking, on bending headache does not increase. Has about 4 headaches a week - 2 severe, 2 moderate. Takes Exedrin that helps headaches the best - daylin moderate ones, nothing helps severe headaches. Limited response to Naproxen - unsure ofthe dose. Snores at night, has chronic tonsillitis - has scheduled TnA for May 14. Lifestyle - does not skip meals, drinks lot of water - urine is clear, sleeps about 5hours per night - due to daytime napping, no caffeine intake, stress - some social changes with moving to live with grandma but coping well more recently, screen time - limited to about 2 hours aside form virtual school. Has suffered 2 concussions - Jun 2018 and Apr 2019. Both during cheerleading - once thrown to the floor during a back flip, other time - another team mate fell on her. Both times no LOC, neuroimagingdone with one - negative. Mostly, headaches and confusion after. Family hx - father with migraines History Past Medical History: Diagnosis Date ??? Adenotonsillar hypertrophy 11/11/2019 ??? Headache 02/22/2018 ??? Pyogenic granuloma 08/26/2014 right cheek lesion ??? Recurrent tonsillitis 11/11/2019 ??? Shoulder dislocation 02/01/2019 right Past Surgical History: Procedure Laterality Date ??? EXCISION/DESTRUCTION TISSUE/LESION Right 06/29/2015 Right; EXCISION RIGHT FACE LESION ??? PLASTIC SURGERY PROCEDURE Right 06/29/2015 Right; INTERMEDIATE WOUND CLOSURE Family History Problem Relation Name Age of Onset ??? Arthritis - Rheumatoid Neg Hx ??? Lupus Neg Hx ??? Thyroid Disease Neg Hx ??? Crohn's Disease Neg Hx ??? Ulcerative Colitis Neg Hx ??? Psoriasis Neg Hx ??? Sjogren's Syndrome Neg Hx ??? Celiac Disease Neg Hx Family Dynamics Special Custody concerns: No Education Grade: 10th Social History Social History Narrative Lives with grandma and grandpa Review of Systems Constitutional: (-) fever, (-) fatigue and (-) appetite change Eyes: (-) eye discharge and (-) eye itching ENT: (-) otalgia, (-) hearing loss, (-) epistaxis, (-) nasal congestion, (-) dysphagia and (-) change in voice Cardiovascular: (-) chest pain, (-) palpitations, (-) leg swelling and (-) chest tightness Respiratory: (-) cough, (-) shortness of breath and (-) chest tightness Gastrointestinal: (-) diarrhea, (-) abdominal pain and (-) constipation Genitourinary: (-) change in urine output, (-) bladder incontinence, (-) dysuria and (-) abdominal / pelvic pain Musculoskeletal: (-) myalgia, (-) joint swelling and (-) muscle weakness Integumentary / Skin: (-) angioedema, (-) bruising and (-) abrasion Neurological: (-) gait disturbance, (-) developmental delay, (-) tingling in right leg and (-) burning in right leg Psychiatric / Behavioral: (-) abnormal behavior, (-) self injurious behavior, (- ) anxiety and (-) depression Endocrine: (-) excessive appetite and (-) heat intolerance Hematologic / Lymphatic: (-) adenopathy and (-) excessive bruising Allergy / Immunology: (-) seasonal allergies and (-) immune deficiency Physical Exam Vitals: 04/24/20 1330 BP: 110/64 Weight: 58 kg (127 lb 13.9 oz) Height: 1.635 m (5' 4.37 ) Orthostatic Vitals: No data found in the last 1 encounters. Constitutional: Active, well-developed and well-nourished Head: Normocephalic Ears: Normal tympanic membranes Eyes: Pupils are equal, round, and reactive to light, conjunctivae normal and red reflex is presentbilaterally Nose: Nose normal Throat: Right tonsil: 3+ Left tonsil: 3+ Mouth: moist mucous membranes Neck: Normal range of motion and trachea midline Cardiovascular: S1 normal, S2 normal, femoral and radial pulses are simultaneous and regular rhythm Pulmonary: Breath sounds normal, normal air entry and effort normal Abdominal: Soft No tenderness and no definite mass Bowel sounds: normal Musculoskeletal: Normal range of motion and normal muscle mass Skin: Warm, moist and turgor normal Neurological: Mental status: - Orientation: oriented to person, place and time - Memory: normal - Speech: normal speech - Language: follows three-step commands CN II: normal visual acuity and normal visual lamas CN III, IV, : normal extraocular movement, normal lids and PERRL CN V: normal CN VII: normal CN VIII: normal CN IX, X: palate symmetrical and normal gag reflex CN XI: normal CN XII: normal Motor: normal muscle bulkno fasciculations present - Muscle tone: normal - Strength: normal strength Sensory: - Sensation: normal Deep tendon reflexes: - Brachioradialis: R - 2+ L - 2+ - Biceps: R - 2+ L - 2+ - Triceps: R - 2+ L - 2+ - Finger flex: R - 2+ L - 2+ - Hamstring: R - 2+ L - 2+ - Patellar: R - 2+ L - 2+ - Achilles: R - 2+ L - 2+ Coordination: normal coordination Gait: normal casual, toe, heel and tandem gait PING MARKER documented in this encounter Plan of Treatment Not on file documented as of this encounter Visit Diagnoses Diagnosis Chronic nonintractable headache, unspecified headache type- Primary * Assessment & Plan Note - Jean Mary MD - 04/24/2020 4:14 PM CLIPPING MARKER Associated Problem(s): Chronic headache 14 year old with hx of chr tonsillitis presenting with chronic headaches - about 4 a week. Headaches likely triggered by concussion x2. Has characteristics of both tension type headaches and migraineheadaches - especially the severe. Exam non focal, fundii sharp. She will benefit from prophylacticmedications. TnA will also benefit her KEVIN and tonsillar hypertropthy. Plan: - Start Riboflavin 400mg daily - Abortive - Naproxen 500mg PRN for headaches - Zofran PRN for nausea - Headache hygiene - Follow up in 3 months PING MARKER documented in this encounter Care Teams Abstract Checker Relationship Specialty Start Date End Date Leticia Yoder MD PCP - General 08/14/14 Myesha Steward PA-C [address] [address] Physician Senior Energy Consultant 02/20/19 documented as of this encounter
--- OUTSIDE RECORDS SUMMARY | 2024-05-29 23:31 | XMS_ITS | Encounter Summary ---
Author Organization [facility] Address [address] [facility] [place] [address] Care Team Providers Care Dough Maker Name Role Phone Leticia Yoder MD Primary Care Provider Myesha Steward PA-C Unavailable [phone] Encounter Details Date Type Department Care Team (Latest Contact Info) Description 11/08/2019 Travel Social History Tobacco Use Types Packs/Day Years Used Date Smoking Tobacco: Never Assessed Sex and Gender Information Value Date Recorded Sex Assigned at Not on file Gender Identity Not on file Sexual Orientation Not on file COVID-19 Exposure Response Date Recorded In the last month, have you been in contact with someone who was confirmed or suspected to have Coronavirus / COVID-19? No / Unsure 11/08/2019 4:32 PM CDT documented as of this encounter Functional Status Functional Status Response [...] No 06/29/2015 documented as of this encounter Plan of Treatment Not on file documented as of this encounter Visit Diagnoses Not on filedocumented in this encounter Care Teams Dough Maker Relationship Specialty Start Date End Date Leticia Yoder MD PCP - General 08/14/14 Myesha Steward, EDMONDC [address] [address] Physician Coffee Sommelier 02/20/19 documented as of this encounter
--- OUTSIDE RECORDS SUMMARY | 2024-05-29 23:31 | XMS_ITS | Encounter Summary ---
Author Organization [facility] Address [address] [facility] [place] [address] Care Team Providers Care Framing Carpenter Name Role Phone Leticia Yoder MD Primary Care Provider Myesha Steward PA-C Unavailable [phone] Reason for Visit * Reason Onset Date Comments Pre-op Clearance 01/06/2020 pre-op covid sw ab Encounter Details Date Type Department Care Team (Late st Contact Info) Description 01/06/2020 Telephone [facility] Pediatrics [facility] [place] [address] Ximena Chen MD Pre-op Clearance (pre-op covid swab) Social History Tobacco Use Types Packs/Day Years Used Date Smoking Tobacco: Never Smokeless Tobacco: Never Sex and Gender Information Value Date Recorded Sex Assigned at Not on file Gender Identity Not on file Sexual Orientation Not on file documented as of this encounter Functional Status [...] on file documented as of this encounter Results * SARS-COV-2 (COVID-19) PRE-SURGICAL/PROCEDURE (05/11/2020 1:11 PM PLANT ELECTRICIAN) COVID-19 PCR Not detected Not detected 05/11/2020 10:56 PM PLANT ELECTRICIAN [facility] Microbiology SPECIMEN FROM NASOPHARYNGEAL STRUCTURE / Unknown Collection / Unknown 05/11/2020 1:11 PM PLANT ELECTRICIAN 05/11/2020 1:25 PM PLANT ELECTRICIAN Narrative [facility] - 05/11/2020 10:56 PM PLANT ELECTRICIAN This nucleic acid amplification assay performance was validated by [facility]. This test has been authorized [...] Chen MD LAB - MICROBIOLOGY O RDERABLES [facility] [address] [place], [address] [phone] documented in this encounter Visit Diagnoses Diagnosis Pre-operative clearance- Primary Preoperative examination, unspecified documented in this encounter Care Teams Framing Carpenter Relationship Specialty Start Date End Date Leticia Yoder MD PCP - General 08/14/14 Myesha Steward, PAInesC [address] [place] [address] Physician Airplane Technician 02/20/19 documented as of this encounter"
--- OUTSIDE RECORDS SUMMARY | 2024-05-29 23:31 | XMS_ITS | Referral Summary ---
Author Organization [facility] Address [address] [place] [address] Care Team Providers Care Television Cable Installer Name Role Phone Leticia Yoder MD Primary Care Provider Myesha Steward PA-C Unavailable [phone] Source Comments [facility],non-owned Affiliates and Associated Physician Practices is amultiple site organization consisting of ambulatory clinics and hospital sitesin [place], [place], [place] and [place]. This disclosure is being madepursuant to the Care Everywhere program and may not contain all information available regarding this patient. Last updated 18.[facility] Allergies No known active allergies Medications * Be aware that medications may not be up to date on this document. Alwaysverify current medications with the patient. 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 Headaches likely triggered by concussion x2. Has characteristics of both tension type headaches and migraine headaches - especially the severe. Exam non focal, fundii sharp. She will benefit from prophylactic medications. TnA will also benefit her KEVIN and tonsillar hypertropthy. Plan: - Start Riboflavin 400mg daily - Abortive - Naproxen 500mg PRN for headaches - Zofran PRN for nausea - Headache hygiene - Follow up in 3 months Social History Tobacco Use Types Packs/Day Years [...] Comments Blood Pressure 125/86 05/22/2020 6:05 PM JOB PRESS OPERATOR Pulse 64 05/22/2020 6:05 PM JOB PRESS OPERATOR Temperature 36.7 ??C (98 ??F) 05/22/2020 4:37 PM JOB PRESS OPERATOR Respiratory Rate 16 05/22/2020 6:30 PM JOB PRESS OPERATOR Oxygen Saturation 98% 05/22/2020 6:30 PM JOB PRESS OPERATOR Inhaled Oxygen Concentration - - Weight 55.2 kg (121 lb 11.1 oz) 05/22/2020 2:07 PM JOB PRESS OPERATOR Height 164 cm (5' 4.57 ) 05/14/2020 7:56 AM JOB PRESS OPERATOR Body Mass Index - - Functional Status Functional Status Response Date of Assess ment Is person deaf or have serious hearing difficult y? No 05/22/2020 Is person blind or have serious difficulty seein g? No 05/22/2020 Does person have serious dif ficulty walking/climbing stairs? No 05/22/2020 Does person have difficulty dressing/bathing? No 05/22/2020 Does person have difficulty doing errands alone? No 05/22/2020 Cognitive Status Response Date of Assessm ent Does person have difficulty concentrating/remembering/making decisions? No 05/22/2020 Plan of Treatment Not on file Care Teams Television Cable Installer Relationship Specialty Start Date End Date Leticia Yodre MD PCP - General 08/14/14 Myesha Steward, EDMONDC [address] [facility] [address] [place] [address] Physician Final Inspector Motorcyles 02/20/19
--- OUTSIDE RECORDS SUMMARY | 2024-05-29 23:31 | XMS_ITS | Encounter Summary ---
Author Organization [facility] Address [address] [place] [address] Care Team Providers Care Roller Presser Operator Name Role Phone Leticia Yoder MD Primary Care Provider Myesha Steward PA-C Unavailable [phone] Reason for Visit * Reason Comments Pre-op Clearance COVID testing Nurse Only Encounter Details Date Type Department Care Team (Latest Contact Info) Description 05/11/2020 1:02 PM EXTERIOR DESIGNER - 05/11/2020 11:59 PM EXTERIOR DESIGNER Hospital Encounter [facility] [address] [place] [id number] Ximena Chen MD Discharge Disposition: Home or Self Care Social [...] COVID-19? No / Unsure 05/04/2020 9:38 AM EXTERIOR DESIGNER documented as of this encounter Last Filed Vital Signs Vital Sign Reading Time Taken Comments Blood Pressure - - Pulse - - Temperature 37 ??C (98.6 ??F) 05/11/2020 1:10 PM EXTERIOR DESIGNER Respiratory Rate - - Oxygen Saturation - - Inhaled Oxygen Concentration - - Weight - - Height - - Body Mass Index - - documented in this encounter Functional Status Functional [...] this encounter Discharge Instructions * Patient Instructions* Pamella Corey RN - 05/11/2020 1:04 PM EXTERIOR DESIGNER Discharge instructions include self isolate until day of surgery/procedure, monitor for post swab soreness or bleeding. Guardian verbalizes understanding of discharge instructions. RIOR DESIGNER documented in this encounter Medications at Time of Discharge Medication Sig Dispensed Refills Start Date End Date aspirin-acetaminophe n-caffeine 250-250-65 MG tablet Take by mouth every 4 hours as needed for Headache 07/01 1-20 MG-MCG tablet Take 1 tablet [...] as of this encounter Progress Notes * Pamella Corey RN - 05/11/2020 1:06 PM CST Pt here for nurse only, pre-op COVID-19 swab.Pain assessment completed.Temperature taken, pt is afebrile. Patient asymptomatic.Appropriate isolation procedures followed. COVID-19 swab( lab [id number]) collected, labeled and sent to lab for processing. Discharge instructions include self isolate until day of surgery/procedure, monitor for post swab soreness or bleeding. Guardian verbalizes understanding of discharge instructions. RIOR DESIGNER documented in this encounter Plan of Treatment Not on file documented as of this encounter Procedures Procedure Name Priority Date/Time Associated Diagnosis Comments SARS-COV-2 (COVID-19) IN HOUSE Routine 05/11/2020 1:11 PM EXTERIOR DESIGNER Pre-operative clearance documented in this encounter Results * SARS-COV-2 (COVID-19) PRE-SURGICAL/PROCEDURE (05/11/2020 1:11 PM EXTERIOR DESIGNER) COVID-19 PCR Not detected Not detected 05/11/2020 10:56 PM EXTERIOR DESIGNER [facility] Microbiology SPECIMEN FROM NASOPHARYNGEAL STRUCTURE / Unknown Collection / Unknown 05/11/2020 1:11 PM EXTERIOR DESIGNER 05/11/2020 1:25 PM EXTERIOR DESIGNER Narrative [facility] - 05/11/2020 10:56 PM EXTERIOR DESIGNER This nucleic acid amplification assay performance was validated by [facility]. This test has been authorized [...] Chen MD LAB - MICROBIOLOGY O RDERABLES [facility] [address] [place] [address], [facility] [phone] documented in this encounter Visit Diagnoses Diagnosis Pre-operative clearance Preoperative examination, unspecified documented in this encounter Additional Health Concerns Infection Onset Date Last Indicated Resolved Time COVID-19 Under Investigation 05/11/2020 05/11/2020 05/11/2020 10:56 PM EXTERIOR DESIGNER documented as of this encounter Care Teams Roller Presser Operator Relationship Specialty Start Date End Date Leticia Yoder MD PCP - General 08/14/14 Myesha Steward PA-C [address] [address] Physician Pillowcase Maker 02/20/19 documented as of this encounter
--- OUTSIDE RECORDS SUMMARY | 2024-05-29 23:31 | XMS_ITS | Encounter Summary ---
Author Organization [facility] Address [address] [place] [address] Care Team Providers Care Monitoring Analyst Name Role Phone Leticia Yoder MD Primary Care Provider Myesha Steward PA-C Unavailable Reason for Visit * Auth/Cert Specialty Diagnoses / Procedures Referred By Aj guerrero Referred To Contact Referral ID Status Reason Start Date Expiration Date Visits Re quested Visits Authorized [id number] 1 1 Encounter Details Date Type Department Care Team (Late st Contact Info) Description 05/22/2020 3:43 PM RN ONCOLOGY RESEARCH Anesthesia Event [facility] - Periop [address] [place] [address] Colton Morales MD [address] [place] [address] Paul Peng DO [address] [place] [address] Anesthesia Record Procedure Summary Procedure Name Responsible Anesthesiologist Anesthesia Start Time Anesthesia Stop Time CONTROL TONSILLAR HEMORRHAGE (Throat) Colton Morales MD 05/22/20 1543 05/22/20 1640 Events Date Time Event Comment 05/22/2020 1543 An Start 1543 An Start Data 1543 PT Reassessment 1546 An Induction 1547 An Intubation 1549 Timeout Anesthesia part icipated in timeout at the time documented in the record by nursing. 1620 An Emergence 1632 Extubation 1633 an stop data 1635 ANPTO2 1637 1640 An Stop 1640 Electnc Sig Meds Name Total midazolam 2 mg/2mL injection 2 mg fentaNYL 100 mcg/2mL injection 100 mcg lidocaine (MPF) 2% injection 100 mg propofol 200mg/20mL injection 150 mg rocuronium 50 mg/5mL injection 40 mg dexamethasone 4 mg/mL injection 12 mg ondansetron 4 mg/2mL injection 4 mg sugammadex 200 mg/2mL injection 200 mg dexmedetomidine (PRECEDEX) 200 mcg in 50 mL infusion 24 mcg isolyte-S pH 7.4 infusion 500 mL 0.9 % nacl IV BOLUS 1,000 mL 1,000 mL * Agents Name Insp. N2O Exp. Sevoflurane Insp. Sevoflurane * Blood No blood administrations on file. Lines, Drains, and Airways Type Details Placement Removal Peripheral IV Date: 05/22/20; Time : 1455; Orientation: Left; Placed By: Bianca Murray RN; Length (in): 1.00IN; Tolerance: Well 05/22/20 1455 by Bianca Rosales RN 05/22/20 1830 by Tangela Braxton RN ETT Date: 05/22/20; Time : 1547; Placed By: Paul Peng DO; Vent: mask not attempted; Induction: Standard IV; Blade Type: Aki; Blade Size: 3; Laryngoscopy View: Grade 1 (full cords); Tube: Endotracheal Tube; Placement: Oral; Tube Type: Cuffed-inflated; Tube Size(mm): 7 MM; Attempts: 1; Cuff Infated: Air; Verified By: Direct visualization, CO2 Monitor 05/22/20 1547 by Paul Peng DO 05/22/20 1632 by Paul Peng DO Procedural Site (Incision) 05/22/20; 1550; Left, Right; Throat; 05/23/20; 0038 05/22/20 1550 by Lisa Ramos RN 05/23/20 0038 by Generic, Auto Release documented in this encounter Social History Tobacco [...] COVID-19? No / Unsure 05/04/2020 9:38 AM RN ONCOLOGY RESEARCH documented as of this encounter Functional Status [...] No 05/14/2020 documented as of this encounter Progress Notes * Shantelle Seaman MD - 05/22/2020 6:07 PM CST ANESTHESIA POSTOP EVALUATION NOTE Procedure: CONTROL TONSILLAR HEMORRHAGE (N/A Throat) Jerrod Harris is a 14 year old female Patient Vitals for the past 6 hrs: BP Temp Pulse Resp SpO2 Pain Rating Score #1 Pain Scale/Observation 05/22/20 1407 (!) 118/89 98.2 ??F (36.8 ??C) 88 20 98 % 5 N 05/22/20 1455 -- -- -- -- -- 2 N 05/22/20 1516 (!) 123/87 98.7 ??F (37.1 ??C) 92 20 98 % -- No/denies pain 05/22/20 1637 (!) 115/90 98 ??F (36.7 ??C) 86 16 97 % 8 N;PRO;B 05/22/20 1650 (!) 126/93 -- 90 16 94 % 8 N;PRO;B 05/22/20 1705 (!) 127/94 -- 78 16 97 % 4 N;PRO;B 05/22/20 1720 (!) 139/88 -- 68 16 100 % 4 N;PRO;B 05/22/20 1735 (!) 129/94 -- 60 14 99 % -- N;B Anesthesia Type: general ETT * No Diagnosis Codes entered * Mental Status: awake, alert, sufficiently recovered from acute administration of anesthesia to participate in the evaluation and neurologic status has returned to preoperative level Respiratory Function: natural Cardiac Function: stable Postop Pain: acceptable to the patient Postop Hydration: adequate Postop Nausea: none Assessment: no apparent anesthetic complications, patient tolerated procedure well and no evidence of recall Patient Disposition: Release from Anesthesia Care COMPLICATIONS: No complications documented. ONCOLOGY RESEARCH * Colton Morales MD - 05/22/2020 3:55 PM CST ANESTHESIA PREOPERATIVE EVALUATION NOTE Procedure: CONTROL TONSILLAR HEMORRHAGE (N/A Throat) NPO status: Since Midnight;*Other (yesterday) (05/22/2020 3:18 PM) Vitals: Patient Vitals for the past 6 hrs: BP Temp Pulse Resp SpO2 Pain Rating Score #1 05/22/20 1516 (!) 123/87 98.7 ??F (37.1 ??C) 92 20 98 % -- 05/22/20 1455 -- -- -- -- -- 2 05/22/20 1407 (!) 118/89 98.2 ??F (36.8 ??C) 88 20 98 % 5 ANESTHESIA PRE-EVALUATION NOTE History of Present Illness: Pt is a healthy 14 yo F presenting emergently to the OR for tonsillar bleed. Pt is s/p Tonsil and adenoidectomy 05/14/20 Previous Airway Management: ETT Placed: ETT Size: 7 Blade Type: MAC Blade Size: 3 GradeGrade: 1 Physical Exam: Orientation X3 Airway/Mallampati Score: II Mouth Opening Distance: 3 fingerwidths Neck ROM: full Teeth: normal (braces) Heart: normal - S1 S2 Lungs: clear to ausculation bilaterally Abdomen Exam: soft Review of Systems: History of anesthetic complications: No ANESTHESIA PLAN ASA Score: 2 E NPO Status: No solids since midnight Anesthesia Plan: general ETT Planned Induction: intravenous and rapid sequence Planned Postop Destination: PACU Anesthetic plan was discussed with: patient, family, father Anesthetic Plan discussion was: Consented The patient's procedural Anesthetic Plan was discussed with the attending. Overall additional findings/comments: I evaluated Atiana this afternoon and discussed the anesthetic with her dad. Dr. Thomas . BMI, Height, Weight Tobacco History Estimated body mass index is 21.08 kg/m?? as calculated from the following: Height as of 05/14/20: 1.64 m (5' 4.57 ). Weight as of 05/14/20: 56.7 kg (125 lb). Social History Tobacco Use Smoking Status Never Smoker Smokeless Tobacco Never Used Alcohol History Drug History Social History Substance and Sexual Activity Alcohol Use Never ??? Frequency: Never Social History Substance and Sexual Activity Drug Use Never Outpatient Medications: Inpatient Medications: Outpatient Medications Marked as Taking for the 05/22/20 encounter (Hospital Encounter) Medication Sig Last Dose ??? acetaminophen Take 20 mL by mouth every 6 hours as needed for Fever or Pain 05/22/2020 at Unknown time ??? ibuprofen Take 600 mg by mouth every 8 hours as needed 05/21/2020 at Unknown time ??? 07/01 Take 1 tablet by mouth once daily Past Week at Unknown time ??? riboflavin Take 1 capsule by mouth once daily Past Month at Unknown time Current Facility-Administered Medications Medication Dose Last Admin ??? 0.9 % nacl 1,000 mL 1,000 mL at 05/22/20 1456 ??? 0.9% NaCl irrigation 1,000 mL at 05/22/20 1550 Facility-Administered Medications Ordered in Other Encounters Medication Dose Last Admin ??? dexamethasone 12 mg at 05/22/20 1550 ??? dexmedetomidine 4 mcg/mL 8 mcg at 05/22/20 1549 ??? fentaNYL (PF) 100 mcg at 05/22/20 1546 ??? isolyte-S pH 7.4 New Bag at 05/22/20 1551 ??? lidocaine hcl (PF) 100 mg at 05/22/20 1546 ??? midazolam (PF) 2 mg at 05/22/20 1541 ??? Ondansetron HCl 4 mg at 05/22/20 1551 ??? propofol 150 mg at 05/22/20 1546 ??? rocuronium 40 mg at 05/22/20 1546 Allergies: No Known Allergies Relevant Problems No relevant active problems Problem List: Patient Active Problem List Diagnosis Date Noted ??? Non-adherence to medical treatment 03/20/2018 Priority: Not Prioritized ??? 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 Overuse injury 02/22/2018 Priority: Not Prioritized ??? Arthralgia 02/20/2018 Priority: Not Prioritized ??? SNEHA positive 02/20/2018 Priority: Not Prioritized ??? Chronic headache 02/08/2018 Priority: Not Prioritized Medical History: Past Medical History: Diagnosis Date ??? Adenotonsillar hypertrophy 11/11/2019 ??? Headache 02/22/2018 ??? Pyogenic granuloma 08/26/2014 right cheek lesion ??? Recurrent tonsillitis 11/11/2019 ??? Shoulder dislocation 02/01/2019 right Surgical History: Past Surgical History: Procedure Laterality Date ??? EXCISION/DESTRUCTION TISSUE/LESION Right 06/29/2015 Right; EXCISION RIGHT FACE LESION ??? PLASTIC SURGERY PROCEDURE Right 06/29/2015 Right; INTERMEDIATE WOUND CLOSURE ??? Tonsillectomy and Adenoidectomy N/A 05/14/2020 N/A; TONSILLECTOMY AND ADENOIDECTOMY Lab Results: Recent Labs Component Name 05/14/20 0817 HCGURINE Negative Recent Labs Component Name 05/22/20 1455 WBC 7.8 RBC 3.91* HCT 35.8* HGB 12.9 PLTCOUNT 231 MCV 91.6 MCH 33.0 MCHC 36.0 MPV 12.4* Recent Labs Component Name 05/22/20 1454 ABORH O POS ABSCG NEG Recent Labs Component Name 05/22/20 1454 SODIUM 141 POTASSIUM 4.3 CALCIUM 8.94* CHLORIDE 109* CO2 24 GLUCOSE 91 BUN 16.8 CREATININE 0.77 Recent Labs Component Name 05/22/20 1455 PTT 33.1 PT 13.2 INR 1.0 No results found for requested labs within last 120 days. Recent Labs Result Component Current Result Anion Gap 8 (05/22/2020) ONCOLOGY RESEARCH documented in this encounter Procedure Notes * Paul Peng DO - 05/22/2020 4:01 PM CSTAssociated Order(s): ETT Placement Endotracheal Tube Placement: Patient Location: OR. Intubation Event Date/Time: 05/22/2020 3:47 PM Procedure: intubation (66810). Procedure Section: Sedation: under general anesthesia. Indications for Airway Management: anesthesia Procedure pretreatments used? No Induction: standard IV Patient Position: sniffing Mask Ventilation: not attempted. Blade Type: Aki Blade Size: 3 Laryngoscopy View: grade 1 (full cords) Tube: endotracheal tube Placement: oral Tube type: cuff - inflated Tube Size (MM): 7 Cuff Inflated With: air Number of Attempts: 1. Placement Verified By: direct visualization and CO2 monitor Tube secured with: adhesive tape. Dentition unchanged? Yes Difficult Airway? No. Procedure Start Time: 05/22/2020 3:47 PM. Staff Section Anesthesia Provider: Paul Peng DO, Performed the procedure ONCOLOGY RESEARCH documented in this encounter Miscellaneous Notes * Anesthesia Transfer of Care - Colton Morales MD - 05/22/2020 4:40 PM CST ANESTHESIA TRANSFER OF CARE NOTE Today's Date: 05/22/2020 Date of : 2005 Patient: Jerrod Harris Procedure(s): CONTROL TONSILLAR HEMORRHAGE Surgeon(s): Primary: Antonio Velasquez MD Resident - Assisting: Miguel Shepherd MD Preop Diagnosis: * No Diagnosis Codes entered * Pre-op Meds (From admission, onward) Start Stop Status Route Frequency Ordered 05/22/20 1415 0.9 % nacl IV BOLUS 1,000 mL 05/22 1551 Completed IV ONCE 05/22/20 1350 05/22/20 1415 acetaminophen (TYLENOL) suspension 650 mg 05/22 1410 Completed PO NOW 05/22/20 1409 05/22/20 1349 lidocaine buffered 1-8.4 % injection 0.2 mL 05/22 1548 Dispensed INFILTRATION PRN 05/22/20 1350 * No Diagnosis Codes entered * . No Known Allergies Vitals: Patient Vitals for the past 3 hrs: BP Temp Pulse Resp SpO2 Pain Rating Score #1 05/22/20 1516 (!) 123/87 98.7 ??F (37.1 ??C) 92 20 98 % -- 05/22/20 1455 -- -- -- -- -- 2 05/22/20 1407 (!) 118/89 98.2 ??F (36.8 ??C) 88 20 98 % 5 Lines, Drains, and Airways Type Details Placement Removal Peripheral IV Date: 05/22/20; Time: 1455; Orientation: Left; Location: Antecubital; Placed By: Bianca Murray RN; Length (in): 1.00IN; Gauge: 20 Gauge; Locals: Injectable; Tolerance: Well 05/22/20 1455 by Bianca Rosales RN ETT Date: 05/22/20; Time: 154; Placed By: Paul Peng DO; Vent: mask not attempted; Induction: Standard IV; Blade Type: Aki; Blade Size: 3; Laryngoscopy View: Grade 1 (full cords); Tube: Endotracheal Tube; Placement: Oral; Tube Type: Cuffed-inflated; Tube Size(mm): 7 MM; Attempts: 1; Cuff I nfated: Air; Verified By: Direct visualization, CO2 Monitor 05/22/20 1547 by Paul Peng DO 05/22/20 1632 by Paul Peng DO Intraprocedure I/O Totals Intake isolyte-S pH 7.4 infusion 500.00 mL 0.9 % nacl IV BOLUS 1,000 mL 1000.00 mL Total Intake 1500 mL Patient Transfer Location: PACU Transport Airway: spontaneous respirations and supplemental O2 Transport Monitoring: continuous pulse oximetry Complications: None Handoff Given? Yes Checklist or Protocol - The garcia handoff elements that must be included in the transfer of care checklist include: 1. Identification of patient. 2. Identification of responsible practitioner (PACU nurse or advanced practitioner). 3. Discussion of pertinent medical history. 4. Discussion of the surgical/procedure course (procedure, reason for surgery, procedure performed). 5. Intraoperative anesthetic management and issue/concerns. 6. Expectations/Plans for the early post-procedure period. 7. Opportunity for questions and acknowledgement of understanding of report from the receiving PACUteam. Colton Morales MD ONCOLOGY RESEARCH documented in this encounter Plan of Treatment Not on file documented as of this encounter Procedures Procedure Name Priority Date/Time Associated Diagnosis Comments ENDOTRACHEAL TUBE NOTE Routine 05/22/2020 4:01 PM RN ONCOLOGY RESEARCH documented in this encounter Results * ETT LINE PERFORMABLE (05/22/2020 4:01 PM RN ONCOLOGY RESEARCH) Narrative Paul Peng DO - 05/22/2020 4:01 PM RN ONCOLOGY RESEARCH Paul Peng DO ? 05/22/2020 ??4:03 PM Endotracheal Tube Placement: ? Patient Location: OR. Intubation Event Date/Time: ??05/22/2020 3:47 PM Procedure: intubation (98702). Procedure Section: ?? Sedation: under general anesthesia. [...] Colton Morales MD GENERAL ANESTHE ELIZABETH ORDERABLES documented in this encounter Visit Diagnoses Not on filedocumented in this encounter Administered Medications Inactive Administered Medications - up to 3 most recent administrations Medication Order MAR Action Action Date Dose Rate Site dexamethasone (DECADRON) injection PRN, Starting on Mon05/22/20 at 1550, Until Mon05/22/20 at 1640, Anesthesia Intra-op $ Given 05/22/2020 3:50 PM RN ONCOLOGY RESEARCH 12 mg dexmedetomidine (PRECEDEX) 200 mcg in 50 mL infusion PRN, Starting on Mon05/22/20 at 1549, Until Mon05/22/20 at 1640, Anesthesia Intra-op $ Given 05/22/2020 4:13 PM RN ONCOLOGY RESEARCH 8 mcg $ Given 05/22/2020 4:00 PM RN ONCOLOGY RESEARCH 8 mcg $ Given 05/22/2020 3:49 PM RN ONCOLOGY RESEARCH 8 mcg fentaNYL (PF) (SUBLIMAZE) injection Intravenous, PRN, Starting on Mon05/22/20 at 1546, Until Mon05/22/20 at 1640, Anesthesia Intra-op $ Given 05/22/2020 3:46 PM RN ONCOLOGY RESEARCH 100 mcg isolyte-S pH 7.4 infusion Intravenous, CONTINUOUS PRN, Starting on Mon05/22/20 at 1551, Until Mon05/22/20 at 1640, Anesthesia Intra-op $ New Bag/Syringe 05/22/2020 4:17 PM RN ONCOLOGY RESEARCH $ New Bag/Syringe 05/22/2020 3:51 PM RN ONCOLOGY RESEARCH lidocaine hcl (PF) (XYLOCAINE MPF) 2 % injection Intravenous, PRN, Starting on Mon05/22/20 at 1546, Until Mon05/22/20 at 1640, Anesthesia Intra-op $ Given 05/22/2020 3:46 PM RN ONCOLOGY RESEARCH 100 mg midazolam (PF) (VERSED) injection PRN, Starting on Mon05/22/20 at 1541, Until Mon05/22/20 at 1640, Anesthesia Intra-op $ Given 05/22/2020 3:41 PM RN ONCOLOGY RESEARCH 2 mg Ondansetron HCl (ZOFRAN) injection PRN, Starting on Mon05/22/20 at 1551, Until Mon05/22/20 at 1640, Anesthesia Intra-op $ Given 05/22/2020 3:51 PM RN ONCOLOGY RESEARCH 4 mg propofol (DIPRIVAN) injection Intravenous, PRN, Starting on Mon05/22/20 at 1546, Until Mon05/22/20 at 1640, Anesthesia Intra-op $ Given 05/22/2020 3:46 PM RN ONCOLOGY RESEARCH 150 mg rocuronium (ZEMURON) injection Intravenous, PRN, Starting on Mon05/22/20 at 1546, Until Mon05/22/20 at 1640, Anesthesia Intra-op $ Given 05/22/2020 3:46 PM RN ONCOLOGY RESEARCH 40 mg sugammadex (BRIDION) injection Intravenous, PRN, Starting on Mon05/22/20 at 1620, Until Mon05/22/20 at 1640, Anesthesia Intra-op $ Given 05/22/2020 4:20 PM RN ONCOLOGY RESEARCH 200 mg documented in this encounter Care Teams Monitoring Analyst Relationship Specialty Start Date End Date Leticia Yoder MD PCP - General 08/14/14 Myesha Steward, EDMONDC [address] [address] Physician Wire Weaver 02/20/19 documented as of this encounter
--- OUTSIDE RECORDS SUMMARY | 2024-05-29 23:31 | XMS_ITS | Encounter Summary ---
Author Organization [facility] Address [address] [place] [address] Care Team Providers Care Database Administration Associate Name Role Phone Leticia Yoder MD Primary Care Provider Myesha Steward PA-C Unavailable [phone] Reason for Visit * Reason Comments Tonsillitis Encounter Details Date Type Department Care Team (Latest Contact Info) Description 11/11/2019 2:57 PM CDT - 11/11/2019 11:59 PM CDT Hospital Encounter [facility] - ENT [address] [place] [address] Ximena Chen MD Discharge Disposition: Home or [...] PM CDT documented as of this encounter Last Filed Vital Signs Vital Sign Reading Time Taken Comments Blood Pressure - - Pulse - - Temperature - - Respiratory Rate - - Oxygen Saturation - - Inhaled Oxygen Concentration - - Weight 56.3 kg (124 lb 3.2 oz) 11/11/2019 3:00 P M CDT Height 163 cm (5' 4.17 ) 11/11/2019 3:00 PM CDT Body Mass Index 21.2 11/11/2019 3:00 PM CDT Body Mass Index Percentile 64.68% 11/11/2019 3:0 0 PM CDT Growth Chart: [facility] (Girls, 2- 20 Years) documented in [...] this encounter Discharge Instructions * Patient Instructions* Subhash Ruth RN - 11/11/2019 3:00 PM CDT Images from the original note were not included. Your child has been scheduled for Same Day Surgery (Outpatient Surgery) A natural parent or a court appointed legal guardian MUST accompany the child DATE, TIME, & LOCATION If you know that you will not be able to keep your scheduled surgery date, please call: Monday - Monday, 9:00am - 4:00pm (or leave a voicemail message anytime 24hr a day/7-days a week) The surgery is: Tonsillectomy and adenoidectomy By Dr. Chen on: The Discharge Instructions have been reviewed with the patient and her family. Pre and post operative instructions given, verbalized understanding. Pre-Operative Instructions for Jerrod Harris on Arrival Time: Eating/Drinking Instructions: Normal meals on until midnight. After midnight NO - FOOD/MILK OR DAIRY PRODUCTS/ORANGE JUICE/GUM/CANDY/ or TOOTHPASTE. No ibuprofen or aspirin prior to surgery. Tylenol is ok as well as any other prescribed medicationsif taken before . No vitamins/iron on day of surgery, please. Those patients havingear, nose or throat surgery NO Ibuprofen beginning 5 days before surgery and NO Aspirin products within 2 weeks of surgery. (check active ingredients on all medications.) May ONLY have WATER/APPLE JUICE/WHITE GRAPE JUICE/SPRITE OR 7-UP/PEDIALYTE from midnight until . Infants under 1 year old will have other instructions. NOTHING AT ALL AFTER! Have child take SHOWER or BATH/WASH HAIR/DRESS IN SOMETHING CLEAN AND COMFORTABLE/LOOSE FITTING/ and EASY TO GET IN AND OUT OF! Remove EARRINGS and ALL JEWELRY/FINGERNAIL YORUBA/METAL HAIR CLIPS/BODY PIERCINGS/CONTACT LENSES before coming to the hospital. Girls who have started their menstrual cycle will need to provide a urine sample at the hospital onthe day of surgery. Bring ?? Comfort item (blanket/stuffed animal/etc.) and/or something to do before surgery starts. Nothingvaluable that can't be carried. ?? Sunglasses if you are having eye surgery. ?? Inhaler(s) if prescribed by child's doctor. Arrive on Time ?? TIME: ?? A Parent/Legal Guardian/Metal Bench Patternmaker must accompany patient and obtain VISITOR PASS at the Information Desk. ?? Proceed to 2nd floor SURGERY REGISTRATION - must have parent/guardian PHOTO ID and patient INSURANCE CARD. ?? Only 2 adults may be with the child before and after surgery. No one under the age of 18 is allowed in the pre/post op areas. If you have not heard from anyone regarding time to arrive for surgery by 3 days before surgery - please call Karen at [phone] or Berenice at [phone]. Monday - Monday 8:30am-7pm. If you need toarrange for medical transportation to and/or from the hospital please call the number on the back of your medical card 1 week before surgery. For arrival time at [facility], contact Karen/Berenice at the above numbers. Please check out our video [facility] on [email or web address] or scan QR code. Thank you! 06/25/13 documented in this encounter Medications at Time of Discharge Medication Sig Dispensed Refills Start Date End Date 07/01 1-20 MG-MCG tablet Take 1 tablet by mouth once daily 10/03/2019 documented as of this encounter Progress Notes * Ximena Chen MD - 11/11/2019 3:00 PM CDT ENT Clinic Note 11/11/2019 Patient name: Jerrod Harris Date of : 2005 Chief Complaint Patient presents with ??? Tonsillitis History of Present Illness: Jerrod is a 14 year old 1 month old female here with her grandmother referred for evaluation of recurrent tonsillitis. She had 4 or 5 streptococcal tonsillitis infections in the past year and similarnumber in the year before that. In the past 6 months she had 2 episodes of acute tonsillitis (strep negative) that manifest as severe bilateral throat pain, difficulty swallowing, enlarged tonsils and there was concern for a peritonsillar abscess although this was ruled out. Most recent infection was 2 months ago. She has been treated with multiple courses of amoxicillin and missed many days of school. She does not snore or have witnessed sleep apneas. There is no family history of bleeding disorders. Jerrod played a video on her phone showing enlarged erythematous tonsils with overlying exudate. Records from Dr. Leticia Yoder were reviewed. Allergies: Patient has no known allergies. Medications: Current Outpatient Medications: ??? 07/01 1-20 MG-MCG tablet, Take 1 tablet by mouth once daily, Disp: , Rfl: Past Medical History: Diagnosis Date ??? Headache ??? Pyogenic granuloma 08/26/2014 right cheek lesion History: full term was normal. Hospitalizations: No hearing screen: passed Surgical History: Past Surgical History: Procedure Laterality Date ??? EXCISION/DESTRUCTION TISSUE/LESION Right 06/29/2015 Right; EXCISION RIGHT FACE LESION ??? PLASTIC SURGERY PROCEDURE Right 06/29/2015 Right; INTERMEDIATE WOUND CLOSURE Immunizations: are up to date Growth and development: Age appropriate: yes Receiving additional services: no Family history: Hearing loss: No. Surgical or anesthesia complications No Bleeding problems: no Social history: Here with grandmother. Exposure to smoking: No but grandfather occasionally smokes cigars and she has tried vaping Atiana attends school, starting 10th grade. Review of systems: Constitutional: child is weight appropriate Ears, Nose, Mouth, Throat: does not have hearing loss. has had no tonsillitis or strep throat; has not had frequent URI's Cardiovascular: does not have heart disease Respiratory: does not have asthma or wheezing Integumentary: does not have rash or eczema Neurological: does not have seizures Endocrine: does not have a history of thyroid problems Hematologic: does not have easy bleeding or bruising. Gastrointestinal: does not have reflux disease or GI illness Psychiatric: does not have ADHD or depression Allergy/Immunology: does not have known environmental or food allergy. does not have immunodeficiency Physical Exam: Height: 163 cm (5' 4.17 ) Weight: 56.3 kg (124 lb 3.2 oz) Body mass index is 21.2 kg/m??. Estimated body mass index is 21.2 kg/m?? as calculated from the following: Height as of this encounter: 1.63 m (5' 4.17 ). Weight as of this encounter: 56.3 kg (124 lb 3.2 oz). Constitutional: no retractions or cyanosis Head and Face: no lesions or masses; facies symmetric, small scar right nasal sidewall interface with cheek Eyes: normal ocular motion with gaze alignment Ears: Inspection: normal pinnae shape and position Otoscopy: External canal: normal bilaterally Tympanic membrane: Right ear: normal appearance and landmarks Left ear: normal appearance and landmarks Nasal: normal external nose, mucous membranes and septum Oral Cavity: moist mucous membranes; normal uvula, palate and tongue size Throat: tonsils 4+ with erythema of anterior pillars Neck: supple without tenderness or crepitus; multiple small mobile lymph nodes Cranial Nerve Exam: grossly intact; CN VII symmetrical Respiration: unlabored breathing Skin: skin healthy ASSESSMENT: 14 year old 1 month old female with tonsil hypertrophy and recurrent tonsillitis. PLAN: Tonsillectomy and Adenoidectomy She is a candidate for surgery based on frequency and severity of infections. We have discussed therisks, benefits, alternatives and personnel involved in adenotonsillectomy. The risks include, but are not limited to: post- tonsillectomy bleeding which can range from minimal to life threatening (0.5- 1%), dehydration, throat pain, and speech changes. Surgery will not prevent viral pharyngitis. Thepatient and family express understanding of these issues and they are quite keen to proceed. They inquired if surgery would improve her headaches which is unlikely. Expectations of one week out of school, two weeks out of sports/PE, need for encouragement of fluidintake, limitation of diet to restrict hard/crunchy foods were discussed. If bleeding should occur postoperatively, the parent/guardian is to bring the child immediately to the nearest emergency department. Parent/guardian expresses understanding and a postoperative instruction sheet was provided. Surgery was scheduled. Plan for a postoperative evaluation as needed. In addition to the standard procedural informed consent, the specific risks related to COVID-19 were also discussed, including the possibility of an infection being present with a negative test, the risk of otoniel COVID-19, and the known implications of this infection. Ximena Chen MD documented in this encounter Plan of Treatment Not on file documented as of this encounter Visit Diagnoses Diagnosis Hypertrophy of tonsils- Primary Hypertrophy of tonsils alone Recurrent tonsillitis Acute tonsillitis documented in this encounter Care Teams Database Administration Associate Relationship Specialty Start Date End Date Leticia Yoder MD PCP - General 08/14/14 Myesha Steward PA-C [address] [address] Physician Manhole Builder 02/20/19 documented as of this encounter
--- OUTSIDE RECORDS SUMMARY | 2024-05-29 23:31 | XMS_ITS | Encounter Summary ---
Author Organization [facility] Address [address] [place] [address] Care Team Providers Care Assistant Professor Of Surgery Name Role Phone Leticia Yoder MD Primary Care Provider Myesha Steward PA-C Unavailable [phone] Encounter Details Date Type Department Care Team (Latest Contact Info) Description 05/04/2020 Travel Social History Tobacco Use Types Packs/Day [...] COVID-19? No / Unsure 05/04/2020 9:38 AM STRAW HAT BRIM CUTTER OPERATOR documented as of this encounter Functional Status [...] on filedocumented in this encounter Care Teams Assistant Professor Of Surgery Relationship Specialty Start Date End Date Leticia Yoder MD PCP - General 08/14/14 Myesha Steward, EDMODNC [address] [address] Physician Shade Hanger 02/20/19 documented as of this encounter
--- OUTSIDE RECORDS SUMMARY | 2024-05-29 23:31 | XMS_ITS | Encounter Summary ---
Author Organization [facility] Address [address] [facility] [place] [address] Care Team Providers Care Manuscripts Archivist Name Role Phone Leticia Yoder MD Primary Care Provider Myesha Steward PA-C Unavailable [phone] Encounter Details Date Type Department Care Team (Latest Contact Info) Description 09/10/2019 Travel Social History Tobacco Use Types Packs/Day [...] have Coronavirus / COVID-19? No / Unsure 09/10/2019 8:13 AM CDT documented as of this encounter Functional [...] on filedocumented in this encounter Care Teams Manuscripts Archivist Relationship Specialty Start Date End Date Leticia Yoder MD PCP - General 08/14/14 Myesha Steward, EDMONDC [address] [address] Physician Prepleater 02/20/19 documented as of this encounter
--- OUTSIDE RECORDS SUMMARY | 2024-05-29 23:31 | XMS_ITS | Encounter Summary ---
Author Organization [facility] Address [address] [place] [address] Care Team Providers Care Debubblizer Name Role Phone Leticia Yoder MD Primary Care Provider Myesha Steward PA-C Unavailable [phone] Reason for Visit * Auth/Cert Specialty Diagnoses / Procedures Referred By Aj guerrero Referred To Contact Diagnoses Hypertrophy of tonsils Acute recurrent tonsillitis Hypertrophy of tonsils [J35.1] Acute recurrent tonsillitis [J03.91] Procedures TONSILLECTOMY AND ADENOIDECTOMY Referral ID Status Reason Start Date Expiration Date Visits Re quested Visits Authorized [id number] 1 1 Encounter Details Date Type Department Care Team (Latest Contact Info) Description 05/14/2020 7:35 AM TOWN JUSTICE - 05/14/2020 12:40 PM TOWN JUSTICE Hospital Encounter [facility] [place] [address] [place] [address] Ximena Chen MD Surgery General Discharge Disposition: Home or Self Care Social [...] COVID-19? No / Unsure 05/04/2020 9:38 AM TOWN JUSTICE documented as of this encounter Last Filed Vital Signs Vital Sign Reading Time Taken Comments Blood Pressure 120/78 05/14/2020 12:25 PM TOWN JUSTICE Pulse 92 05/14/2020 12:25 PM TOWN JUSTICE Temperature 36.7 ??C (98.1 ??F) 05/14/2020 10:[address] Respiratory Rate 16 05/14/2020 12:25 PM TOWN JUSTICE Oxygen Saturation 97% 05/14/2020 12:25 PM TOWN JUSTICE Inhaled Oxygen Concentration - - Weight 56.7 kg (125 lb) 05/14/2020 7:56 AM TOWN JUSTICE Height 164 cm (5' 4.57 ) 05/14/2020 7:56 AM TOWN JUSTICE Body Mass Index 21.08 05/14/2020 7:56 AM TOWN JUSTICE Body Mass Index Percentile 60.37% 05/14/2020 7:5 6 AM TOWN JUSTICE Growth Chart: [facility] (Girls, 2- 20 Years) documented in this [...] SUMMARY Patient ID: Name: Jerrod Harris MR#: [id number] Date of : 2005 Age: [age] year old Discharge Date: 05/14/20 Discharge Diagnosis: Adenotonsillar hypertrophy, recurrent tonsillitis Procedure: adenotonsillectomy Discharge Condition: Stable Discharge Procedure Orders Why you were hospitalized Order Specific Question Answer Comments Your discharge diagnosis is: Recurrent tonsillitis [4311933] Your discharge diagnosis is: Tonsillar hypertrophy [633953] No special diet needed Resume normal home [...] look blue?? -- if you can see Jerrod's abdomen and rib cage muscles move inward when she takes a breath?? -- if Jerrod is exhaused, or is not as alert?? -- if Jerrod has constant vomiting, or cannot eat or drink -- As quickly as necessary, please * call ENT office at [phone] (8am to 5pm M-F) * call ENT doctor occupational health coordinator at [phone] (5pm to 8am M-F or weekends) * [...] as needed for any questions/concerns. Please call [phone] to schedule. If you have questions about surgery or your child's recovery, please call our nurses at [phone]. Miguel Shepherd MD JUSTICE documented in this encounter Medications at Time [...] informed decision to proceed. Miguel Shepherd MD JUSTICE documented in this encounter Nursing Notes * Berenice Love RN - 05/06/2020 5:32 PM CST Surgery Instructions for Jerrod on , 2019 . Your child is required to have a Covid-19 test 2 to 5 days prior to surgery. The child will have toself-isolate between test and surgery. Please contact [phone]. [phone] if you need help arranging the appointment for testing. If not being done at a [facility] Health facility, please make sure the result of the test will be FAXED to [phone] no later than the day before surgery [...] Desk on the Ground Level. From the frontend engineer take the elevator ???A?? to the 2nd [...] that is easy to remove Remove nail lao/overlays. BRING: ??? One wipe able comfort Item [...] Please call Berenice Jones or Olivia at [phone] or [phone]. M-F 8:30am - 5:00pm. *Your surgery could be cancelled if: ??? You are not in surgery registration at your given arrival time ??? You do not report insurance changes to surgeon???s office ??? You do not follow eating and drinking instructions prior to surgery Follow this link ???[facility]?? to our video. Hotels in the area Thank you! JUSTICE documented in this encounter OR Notes * Operative - Ximena Chen MD - 05/14/2020 10:24 AM CST OTOLARYNGOLOGY HEAD AND NECK SURGERY OPERATIVE NOTE Patient Name: Jerrod Harris Patient : 2005 CSN: [id number] Date of Procedure: 05/14/2020 Pre-Op Diagnosis: Adenotonsillar [...] up as needed. Miguel Shepherd MD 05/14/2020 JUSTICE documented in this encounter Plan of Treatment Not on file documented as of this encounter Procedures Procedure Name Priority Date/Time Associated Diagnosis Comments GROSS EXAM PATHOLOGY (STL) STAT 05/14/2020 10:04 AM TOWN JUSTICE Hypertrophy of tonsils Acute recurrent tonsillitis TONSILLECTOMY AND ADENOIDECTOMY 05/14/2020 9:47 AM TOWN JUSTICE Hypertrophy of tonsils Acute recurrent tonsillitis Special Needs Covid test 05/11 CGDBT/email HCG URINE QUAL POCT NOTIFICATION Routine 05/14/2020 9:30 AM TOWN JUSTICE Tonsillitis HCG URINE QUALITATIVE - POCT (IP) INTERFACED Routine 05/14/2020 8:17 AM TOWN JUSTICE documented in this encounter Results * GROSS EXAM PATHOLOGY (STL) (05/14/2020 10:04 AM TOWN JUSTICE) Case Report Surgical Pathology Report ? Case: [id number] ? Authorizing Provider: ??Ximena Chen MD ?Collected: ? 05/14/2020 10:04 AM ? Ordering Location: ? [facility] ? Received: ?05/14/2020 10:30 AM ? Pathologist: ? Tameka Rangel MD ? Specimen: ?Tonsil(s) ? 05/14/2020 3:47 PM [facility] Final Diagnosis Gross diagnosis: [place] tonsils. 05/14/2020 3:47 PM [facility] Clinical History The patient is a 14-year-old girl with tonsillar hypertrophy and acute recurrent tonsillitis. 05/14/2020 3:47 PM [facility] Gross Description Submitted fixed [...] sections are taken. (CT/ns) 05/14/2020 3:47 PM [facility] Embedded Images 05/14/2020 3:47 PM [facility] Pathology/Cytology SPECIMEN FROM TONSIL / Unknown 05/14/2020 10:04 AM TOWN JUSTICE 05/14/2020 10:30 AM TOWN JUSTICE Comment:Pre-op diagnosis: Hypertrophy of tonsils [J35.1] Acute recurrent tonsillitis [J03.91] Narrative Authorizing Provider Result Clifford Chen MD LAB - PATHOLOGY/CYTO LOGY ORDERABLES Performing Organization Address [facility] Co de Phone Number [facility] [place] [address] * HCG URINE QUAL POCT NOTIFICATION (05/14/2020 9:30 AM TOWN JUSTICE) Comment Notification Label Only - See Separate Report 05/14/2020 9:30 AM TOWN JUSTICE [facility] Urine URINE / Unknown 0 8:15 AM TOWN JUSTICE Narrative Authorizing Provider Result Clifford Chen MD LAB - URINALYSIS ORD ERABLES Performing Organization Address [facility] de Phone Number [facility] [address] [place] [address] * HCG URINE QUALITATIVE - POCT (IP) INTERFACED (05/14/2020 8:17 AM TOWN JUSTICE) HCG Qual Urine Negative Negative 05/14/2020 8:28 AM TOWN JUSTICE [facility] Urine URINE / Unknown 05/14/2020 8 :17 AM TOWN JUSTICE 05/14/2020 8:28 AM TOWN JUSTICE Narrative Authorizing Provider Result Clifford Chen MD LAB - POINT OF CARE ORDERABLES Performing Organization Address [facility] de Phone Number [facility] [place] [address] documented in this encounter Visit Diagnoses Diagnosis [...] on Nathaly 05/14/20 at 0819, Until Nathaly 12 at 1402, PIV flush Use positive pressure technique for last 0.5 ml. 2 ml for saline lock flush. 10 ml for syringe flush., Pre-op diphenhydrAMINE (BENADRYL) injection 12.5 mg 12.5 mg, Intravenous, POST-OP MULTIPLE, Starting on Nathaly 05/14/20 at 1031, Until Nathaly 12 at 1402, May repeat first dose every 10 minutes to max dose: 1 mg/Kg or 50 mg whichever is less, PACU HYDROmorphone (DILAUDID) injection 0.2 mg 0.2 mg, Intravenous, POST-OP MULTIPLE, Starting on Nathaly 05/14/20 at 1031, Until Nathaly 12 at 1402, High Risk. High Alert Medication. [...] floor., PACU Current Rate 05/14/2020 10:33 AM TOWN JUSTICE 100 mL/hr documented in this encounter Active and Recently Administered Medications Times are shown in TOWN JUSTICE. Scheduled Medication Order 05/12/2020 05/13/2020 05/14/2020 diphenhydrAMINE [...] irrigation) documented in this encounter Care Teams Debubblizer Relationship Specialty Start Date End Date Leticia Yoder MD PCP - General 08/14/14 Myesha Steward PA-C [address] [address] Physician Public Health Analyst 02/20/19 documented as of this encounter
--- OUTSIDE RECORDS SUMMARY | 2024-05-29 23:31 | XMS_ITS | Clinical Summary ---
Author Organization [facility] Address [address] [place] [address] Care Team Providers Care Bedspread Inspector Name Role Phone Leticia Yoder MD Primary Care Provider Myesha Steward PA-C Unavailable [phone] Source Comments [facility],non-owned Affiliates and Associated Physician Practices is amultiple site organization consisting of ambulatory clinics and hospital sitesin [place], [place], [place] and [place]. This disclosure is being madepursuant to the Care Everywhere program and may not contain all information available regarding this patient. Last updated 18.[facility] Allergies No known active allergies Medications * [...] 02/08/2018 Assessment & Plan (04/24/2020 4:18 PM PROGRAM ELIGIBILITY SPECIALIST): 14 year old with hx of chr [...] hygiene - Follow up in 3 months Family History Medical History Relation Name Comments Arthritis - Rheumatoid Neg Hx Celiac Disease Neg Hx Crohn's Disease Neg Hx Lupus Neg Hx Psoriasis Neg Hx Sjogren's Syndrome Neg Hx Thyroid Disease Neg Hx Ulcerative Colitis Neg Hx Social History Tobacco Use Types Packs/Day Years [...] Comments Blood Pressure 125/86 05/22/2020 6:05 PM PROGRAM ELIGIBILITY SPECIALIST Pulse 64 05/22/2020 6:05 PM PROGRAM ELIGIBILITY SPECIALIST Temperature 36.7 ??C (98 ??F) 05/22/2020 4:37 PM PROGRAM ELIGIBILITY SPECIALIST Respiratory Rate 16 05/22/2020 6:30 PM PROGRAM ELIGIBILITY SPECIALIST Oxygen Saturation 98% 05/22/2020 6:30 PM PROGRAM ELIGIBILITY SPECIALIST Inhaled Oxygen Concentration - - Weight 55.2 kg (121 lb 11.1 oz) 05/22/2020 2:07 PM PROGRAM ELIGIBILITY SPECIALIST Height 164 cm (5' 4.57 ) 05/14/2020 7:56 AM PROGRAM ELIGIBILITY SPECIALIST Body Mass Index - - Plan of Treatment Health Maintenance Due Date Last Done Comments HIV SCREENING 10/07/2019 HPV VACCINE (1 - 3-dose series) 10/07/2019 CHLAMYDIA/GONORRHEA SCREENING 2020 HEPATITIS C SCREENING 10/02/2022 DEPRESSION SCREENING 06/12/2023 DTAP/TDAP/TD VACCINES (1 - Tdap) 10/07/2023 HEPATITIS B VACCINE (1 of 3 - 19+ 3-dose series) 10/07/2023 COVID-19 VACCINE (2023-2 5 season) 2024 INFLUENZA VACCINE (#1) 2024 ZOSTER VACCINE (1 of 2) 2054 HIB VACCINE Aged Out No longer eligi ble based on patient's age to complete this topic MENINGOCOCCAL VACCINE Aged Out No maikol aviva eligible based on patient's age to complete this topic PNEUMOCOCCAL VACCINE Aged Out No long er eligible based on patient's age to complete this topic Care Teams Bedspread Inspector Relationship Specialty Start Date End Date Leticia Yoder MD PCP - General 08/14/14 Myesha Steward PA-C [address] [address] Physician Molder Floor 02/20/19
--- OUTSIDE RECORDS SUMMARY | 2024-05-29 23:31 | XMS_ITS | Encounter Summary ---
Author Organization [facility] Address [address] [place] [address] Care Team Providers Care Press Washer Name Role Phone Leticia Yoder MD Primary Care Provider Myesha Steward PA-C Unavailable [phone] Reason for Visit * Reason Comments POST-OP PROBLEM Post Op T&A (05/14/20 20)-bleeding. No fevers. started last PM with spitting up scabs and blood. Pt also throwing up clots today. * Auth/Cert Specialty Diagnoses / Procedures Referred By Aj guerrero Referred To Contact Referral ID Status Reason Start Date Expiration Date Visits Re quested Visits Authorized [id number] 1 1 Encounter Details Date Type Department Care Team (Late st Contact Info) Description 05/22/2020 3:15 PM SPEECH AND DRAMA TEACHER - 05/22/2020 4:26 PM SPEECH AND DRAMA TEACHER Surgery [facility] - [address] [address] Antonio Velasquez MD [address] [place] [id number] CONTROL TONSILLAR HEMORRHAGE Surgery Details Date/Time Status Location OR Service Patient Class Case Cl ass Case Type Trauma Case? 05/22/2020 3:15 PM Posted MAIN OR 01 ENT Inpatient Emergency < 2Hrs Panel 1 Procedure LRB Anes Op Region Wound Class Comments CONTROL TONSILLAR HEMORRHAGE N/A General Throat C lean Contaminated Surgeon Surgeon Role Service Panel Antonio Velasquez MD Primary ENT 1 Miguel Shepherd MD Resident - Assisting ENT 1 documented in this encounter Social History Tobacco [...] COVID-19? No / Unsure 05/04/2020 9:38 AM SPEECH AND DRAMA TEACHER documented as of this encounter Last Filed Vital Signs Vital Sign Reading Time Taken Comments Blood Pressure 123/87 05/22/2020 3:16 PM SPEECH AND DRAMA TEACHER Pulse 92 05/22/2020 3:16 PM SPEECH AND DRAMA TEACHER Temperature 37.1 ??C (98.7 ??F) 05/22/2020 3:16 PM CS T Respiratory Rate 20 05/22/2020 3:16 PM SPEECH AND DRAMA TEACHER Oxygen Saturation 98% 05/22/2020 3:16 PM SPEECH AND DRAMA TEACHER Inhaled Oxygen Concentration - - Weight 55.2 kg (121 lb 11.1 oz) 05/22/2020 2:07 PM SPEECH AND DRAMA TEACHER Height - - Body Mass Index - [...] person have difficulty concentrating/remembering/making decisions? No 05/22/2020 documented as of this encounter Discharge Summaries * Miguel Shepherd - 05/22/2020 4:28 PM CST Images from the original note were not included. Attending Physician: Antonio Velasquez MD Office 05/22/20 4:28 PM ENT SURGERY DISCHARGE SUMMARY Patient ID: Name: Jerrod Harris MR#: [id number] Date of : 2005 Age: [age] year old Discharge Date: 05/22/20 Discharge Diagnosis: Secondary post-tonsillectomy hemorrhage Procedure: Control of post-tonsillectomy hemorrhage, left inferior pole Discharge Condition: Stable Discharge Procedure Orders Why you were hospitalized Order Specific Question Answer Comments Your discharge diagnosis is: Post tonsillectomy secondary hemorrhage [[id number]] No special diet needed Resume normal home [...] necessary, please * call ENT office at [phone] (8am to 5pm M-F) * call ENT doctor technical information specialist at [phone] (5pm to 8am M-F or weekends) * [...] as needed for any questions/concerns. Please call [phone] to schedule. If you have questions about surgery or your child's recovery, please call our nurses at [phone]. Miguel Shepherd MD CH AND DRAMA TEACHER documented in this encounter Medications at Time [...] for Fever or Pain 237 mL 1 05/22/2020 06/05/2020 dexamethasone (DECADRON) 4 MG tablet Take 5 tablets by mouth every 2 days for 4 doses 20 tablet 05/23/2020 05/30/2020 ibuprofen (ADVIL; MOTRIN) 100 MG/5ML suspension Take 20 mL by mouth every 6 hours as needed for Pain or Fever 237 mL 1 05/22/2020 06/05/2020 oxyCODONE (ROXICODONE) 5 MG/5ML oral solution Take 2.5 mL by mouth every 4 hours as needed (Breakthrough pain not controlled by acetaminophen (tylenol) and ibuprofen (motrin).) 45 mL 05/22/2020 05/29/2020 documented as of this encounter H&P Notes * Ramiro Rosenbaum MD - 05/22/2020 2:47 PM CST Pediatric Otolaryngology H&P Date: 05/22/2020 Patient name: Jerrod Harris Date of : 2005 CSN: [id number] Chief Complaint: Chief Complaint Patient presents with ??? POST-OP PROBLEM Post Op T&A (05/14/2020)-bleeding. No fevers. started last PM with spitting up scabs and blood. Pt also throwing up clots today. History of Present Illness: Jerrod Harris is a 14 year old female with PMH s/f adenotonsillar hypertrohy and recurrent tonsillitis, s/p adenotonsillectomy 05/14/20. Her postoperative course had been uncomplicated until this morning. She first noticed a streak of blood in her toothpaste. This was followed with coughing/vomiting up blood later in the morning. She is now spitting out bright red blood consistently. Able to protect airway well without any difficulty breathing. Reports 08/19 pain. States that she has been staying well hydrated and pain had been relatively well controlled. Last PO intake reportedly 05/21/20. Medical, Surgical History Past Surgical History: Procedure Laterality Date ??? EXCISION/DESTRUCTION TISSUE/LESION Right 06/29/2015 Right; EXCISION RIGHT FACE LESION ??? PLASTIC SURGERY PROCEDURE Right 06/29/2015 Right; INTERMEDIATE WOUND CLOSURE ??? Tonsillectomy and Adenoidectomy N/A 05/14/2020 N/A; TONSILLECTOMY AND ADENOIDECTOMY Past Medical History: Diagnosis Date ??? Adenotonsillar hypertrophy 11/11/2019 ??? Headache 02/22/2018 ??? Pyogenic granuloma 08/26/2014 right cheek lesion ??? Recurrent tonsillitis 11/11/2019 ??? Shoulder dislocation 02/01/2019 right Allergies: No Known Allergies Immunizations: There is no immunization history on file for this patient. Medications for Current Encounter No current facility-administered medications on file prior to encounter. Current Outpatient Medications on File Prior to Encounter Medication Sig Dispense Refill ??? acetaminophen (TYLENOL) 160 MG/5ML solution Take 20 mL by mouth every 6 hours as needed for Fever or Pain 237 mL 1 ??? xmzhhdc-fwkbkquhdsyte-dkjkgdih 250-250-65 MG tablet Take by mouth every 4 hours as needed for Headache ??? ibuprofen (MOTRIN) 600 MG tablet Take 600 mg by mouth every 8 hours as needed ??? 07/01 1-20 MG-MCG tablet Take 1 tablet by mouth once daily ??? [] oxyCODONE (ROXICODONE) 5 MG/5ML oral solution Take 2.5 mL by mouth every 4 hours as needed (Breakthrough pain not controlled by acetaminophen and ibuprofen.) 45 mL 0 ??? riboflavin 400 MG capsule Take 1 capsule by mouth once daily 30 capsule 2 scheduled ??? 0.9 % nacl IV BOLUS 1,000 mL, Intravenous, Once ??? [COMPLETED] acetaminophen (TYLENOL) suspension 650 mg, Oral, Now continuous prn ??? lidocaine buffered 1-8.4 % injection 0.2 mL, Infiltration, PRN Family History family history is not on file. Social History Pediatric History Patient Parents/Guardians ??? Juliet Anderson (Grandparent/Guardian) ??? Wilfrid Anderson (Grandparent/Guardian) Other Topics Concern ??? Special Diet Not Asked Social History Narrative Lives with grandma and grandpa Review of Systems 11 point review of systems was performed and is notable as follows: Negative other than above in HPI Physical Examination Blood pressure (!) 118/89, pulse 88, temperature 98.2 ??F (36.8 ??C), resp. rate 20, weight 55.2 kg(121 lb 11.1 oz), last menstrual period 05/11/2020, SpO2 98 %. General Appearance: Alert and oriented, no apparent distress Eyes: normal conjunctiva and lids; no discharge, erythema or swelling Respiratory: Unlabored breathing on room air Cardiovascular: normal rate and regular rhythm Lymphatic: No abnormally enlarged lymph nodes. Skin: No rashes or abnormal dyspigmentation Ear, Nose, Mouth, and Throat Exam: External inspection of ears & nose: No external deformity Otoscopy: deferred Hearing assessment (e.g. Whispered voice, finger rub, tuning fork): Intact to voice Nasal mucosa, septum & turbinates: Normal nasal mucosa without epistaxis or discharge Lips, teeth and gums: Age appropriate dentition, no masses or lesions Oropharynx/Oral cavity: Clot within left tonsillar fossa, with evidence of slow bleeding around clot; right tonsillar fossa appears to be healing appropriately Examination of neck: Supple, no lymphadenopathy Neurological and Cranial Nerves: CN 3-12 grossly intact Head and face inspection: Normocephalic, atraumatic Data Review, Other Information No results for input(s): WBC, RBC, HGB, HCT, PLTCOUNT, BANDMANPCT, SEGMANPCT, LYMPHMANPCT in the last 29352 hours. No results for input(s): SODIUM, POTASSIUM, CHLORIDE, CO2, BUN, CREATININE, GLUCOSE, CALCIUM in thelast 99144 hours. Imaging No relevant imaging to report Assessment Jerrod is a 14 year oldfemale with PMH s/f adenotonsillar hypertrohy and recurrent tonsillitis, s/padenotonsillectomy 05/14/20, now presenting with post tonsillectomy hemorrhage. Stable, protecting airway Plan To OR urgently for control of post tonsillectomy hemorrhage Keep NPO IV fluids Hcg Consent to be obtained via telephone (Grandparents, custody) Carlos Rosenbaum MD Otolaryngology Resident 05/22/2020 CH AND DRAMA TEACHER Associated attestation - Antonio Velasquez MD - 05/22/2020 3:45 PM SPEECH AND DRAMA TEACHER I have seen and examined the patient with the resident and I agree with the findings and plan of care as documented by the resident. To the OR emergently for control of tonsillar hemorrhage. Date of service: 05/22/2020 Antonio Velasquez MD documented in this encounter OR Notes * Operative - Antonio Velasquez MD - 05/22/2020 3:15 PM CST [facility] DIVISION OF PEDIATRIC OTOLARYNGOLOGY- HEAD & NECK SURGERY OPERATIVE REPORT PATIENT NAME: Jerrod Harris DATE OF : 2005 CSN: [id number] DATE OF OPERATION: 05/22/2020 1515 Pre Operative Diagnoses: Post-tonsillectomy hemorrhage Post Operative Diagnoses: Same Procedures: Control of oropharyngeal hemorrhage Surgeon: Antonio Velasquez M.D. Dominatrix: Miguel Shepherd M.D. Anesthesia: General endotracheal Findings: Bleeding/suspicious areas included left inferior pole Indications: Jerrod is a now 14 year old 7 month old female with a history of T&A for recurrenttonsillitis on 05/14/20, now complicated by oropharyngeal hemorrhage. Description: Upon arrival in the OR, the patient and intended procedure were reviewed. She was placed in a supine position on the table. Anesthesia was induced, and the patient was intubated. A mouth gag was placed in the patient's mouth and opened to examine the oropharynx. Suction bovie cautery was used to control bleeding. The mouth gag was next closed, the neck was massaged, and the gag was reopened to assess for bleeding. Valsalva was performed. No further bleeding was noted. A suction catheter was passed to the stomach. The patient was turned back to the care of Anesthesia in stable condition. The patient tolerated the procedure well. Dr. Velasquez was present during or performed the essential portions of the procedure and was involved in all medical decision-making. Specimens: None Estimated Blood Loss: Minimal intra-op Complications: None Plan: - Tylenol/Motrin per protocol - Oxycodone PRN for 5 days - Decadron 20 mg every other day for 4 doses starting 05/23/20 - Follow up as originally planned (PRN) CH AND DRAMA TEACHER documented in this encounter ED Notes * Amira Norton - 05/22/2020 1:54 PM CSTAssociated Order(s): Critical Care Post-Procedure Diagnose(s): Post-tonsillectomy hemorrhage EMERGENCY DEPARTMENT 05/22/2020 Dear Doctor, We had the pleasure of caring for your patient, Jerrod Harris in our emergency department on 05/22/2020. A note from the provider(s) who cared for your patient is attached. Should you wish to access any laboratory results, please call . Should you wish to access any radiology results, please call , option 3. In addition, you can access patient information 24 hours a day, from any computer, through [employer], the online version of our electronic medical record. If you would like to use this service, please call Roxana Madsen, Connectivity Coordinator, at . We appreciate the opportunity to care for your patients. If you would like additional information, please call the emergency department directly at . Sincerely, Dr. Norton Division of Emergency Medicine [facility], [place] [facility] DESIGNATED EMERGENCY DEPARTMENT Provider contact with the patient: 05/22/2020 1:54 PM Jerrod Harris [id number] [facility] EMERGENCY DEPARTMENT History Chief Complaint Patient presents with ??? POST-OP PROBLEM Post Op T&A (05/14/2020)-bleeding. No fevers. started last PM with spitting up scabs and blood. Pt also throwing up clots today. Chief complaint narrative was entered by triage nurse, not by physician. History of Present Illness HPI provided per: patient and father Jerrod Harris is a 14 year old female with hx of recurrent tonsillitis who is POD #8 s/p adenotonsillectomy on 05/14 who presents with bleeding and hematemesis. Father reports that pt's symptoms begana few hours prior to presentation. Pt reports that she has been having throat pain, for which she has been taking ibuprofen and Tylenol. She has been eating and drinking less than usual because it hurts to swallow. No fevers. PMH: recurrent tonsillitis, chronic headaches; no hospitalizations; s/p adenotonsillectomy on 05/14/2020, hx of skin tag removal; all immunizations up-to-date per father. No Known Allergies Social History Tobacco Use ??? Smoking status: Never Smoker ??? Smokeless tobacco: Never Used Substance and Sexual Activity ??? Alcohol use: Never Frequency: Never ??? Drug use: Never ??? Sexual activity: Not on file Lifestyle ??? Physical activity Days per week: Not on file Minutes per session: Not on file ??? Stress: Not on file Relationships ??? Social connections Talks on phone: Not on file Gets together: Not on file Attends voodoo service: Not on file Active member of club or organization: Not on file Attends meetings of clubs or organizations: Not on file Relationship status: Not on file ??? Intimate partner violence Fear of current or ex partner: Not on file Emotionally abused: Not on file Physically abused: Not on file Forced sexual activity: Not on file Other Topics Concern ??? Special Diet Not Asked Social History Narrative Lives with grandma and grandpa Past Medical History: Diagnosis Date ??? Adenotonsillar hypertrophy 11/11/2019 ??? Headache 02/22/2018 ??? Pyogenic granuloma 08/26/2014 right cheek lesion ??? Recurrent tonsillitis 11/11/2019 ??? Shoulder dislocation 02/01/2019 right Family History Problem Relation Name Age of Onset ??? Arthritis - Rheumatoid Neg Hx ??? Lupus Neg Hx ??? Thyroid Disease Neg Hx ??? Crohn's Disease Neg Hx ??? Ulcerative Colitis Neg Hx ??? Psoriasis Neg Hx ??? Sjogren's Syndrome Neg Hx ??? Celiac Disease Neg Hx Medications Current Outpatient Medications Medication Sig Dispense Refill ??? acetaminophen (TYLENOL) 160 MG/5ML solution Take 20 mL by mouth every 6 hours as needed for Fever or Pain 237 mL 1 ??? fadkrji-irpimyqvwnloq-bbjpkvbg 250-250-65 MG tablet Take by mouth every 4 hours as needed for Headache ??? ibuprofen (MOTRIN) 600 MG tablet Take 600 mg by mouth every 8 hours as needed ??? 07/01 1-20 MG-MCG tablet Take 1 tablet by mouth once daily ??? riboflavin 400 MG capsule Take 1 capsule by mouth once daily 30 capsule 2 Review of Systems Gen: negative Skin: negative HEENT: +bleeding from throat, throat pain CV: negative Resp: negative GI: +hematemesis Musculoskeletal: negative Neurologic: negative Psychiatric: negative Physical Exam Vitals: 05/22/20 1407 05/22/20 1516 BP: (!) 118/89 (!) 123/87 Pulse: 88 92 Resp: 20 20 Temp: 98.2 ??F (36.8 ??C) 98.7 ??F (37.1 ??C) SpO2: 98% 98% Weight: 55.2 kg (121 lb 11.1 oz) Constitutional: adolescent female in NAD HEENT: head NC/AT, no scleral injection, no drainage from ears or nose, +bleeding from R side of throat Cardiovascular: RRR, no murmur Pulmonary: Normal respiratory effort. Breath sounds clear and equal bilaterally; no wheezing, rales, or rhonchi. Abdominal: S/NT/ND Extremities: WWP Neurological: alert, follows commands, responds to questions, moves all four extremities well Skin: No visible rash or lesions. Nursing notes and vitals reviewed. Procedures Critical Care Performed by: Amira Norton MD Authorized by: Amira Norton MD Critical care provider statement: Critical care time (minutes): 35 Critical care was necessary to treat or prevent imminent or life-threatening deterioration of the following conditions: Circulatory failure Critical care was time spent personally by me on the following activities: Development of treatmentplan with patient or surrogate, discussions with consultants, examination of patient, obtaining history from patient or surrogate, review of old charts and ordering and review of laboratory studies Labs/Orders Orders Placed This Encounter ??? ED CRITICAL CARE ??? CBC W AUTO DIFFERENTIAL ??? BASIC METABOLIC PANEL (CALCIUM TOTAL) ??? PT PTT PANEL ??? HCG URINE QUAL POCT NOTIFICATION ??? IP CONSULT PEDS ENT ??? lidocaine buffered 1-8.4 % injection 0.2 mL ??? 0.9 % nacl IV BOLUS 1,000 mL ??? acetaminophen (TYLENOL) suspension 650 mg No orders to display Hospital Encounter on 05/22/20 CBC W AUTO DIFFERENTIAL Result Value Ref Range WBC 7.8 4.5 - 14.5 x10E9/L WBC Corrected RBC 3.91 (L) 4.10 - 5.10 x10E12/L Hemoglobin 12.9 12.0 - 16.0 gm/dL Hematocrit 35.8 (L) 36.0 - 47.0 % MCV 91.6 78.0 - 98.0 fl MCH 33.0 25.0 - 35.0 pg MCHC 36.0 31.0 - 37.0 gm/dL Platelet Count 231 100 - 400 x10E9/L RDW-CV 11.8 11.5 - 14.0 % MPV 12.4 (H) 6.0 - 9.5 fl Neutrophils % 68.5 (H) 24.0 - 66.0 % Lymphocytes % 23.7 22.0 - 61.0 % Monocytes % 6.8 3.0 - 15.0 % Eosinophils % 0.1 0.0 - 10.0 % Basophils % 0.5 % Immature Granulocytes 0.4 % Neutrophil Absolute 5.30 1.08 - 9.57 x10E9/L Lymphocytes Absolute 1.84 0.99 - 8.85 x10E9/L Monocytes Absolute 0.53 0.14 - 2.18 x10E9/L Eosinophils Absolute 0.01 0 - 1.45 x10E9/L Basophils Absolute 0.04 0 - 0.29 x10E9/L Immature Granulocytes Absolute 0.03 0 - 0.15 x10E9/L nRBC Auto 0 /100 WBC BASIC METABOLIC PANEL (CALCIUM TOTAL) Result Value Ref Range Glucose 91 70 - 105 mg/dL Sodium 141 136 - 145 mmol/L Potassium 4.3 3.5 - 5.1 mmol/L Chloride 109 (H) 98 - 107 mmol/L CO2 24 20 - 28 mmol/L Calcium 8.94 (L) 9.08 - 10.48 mg/dL Anion Gap 8 5 - 20 mmol/L BUN 16.8 5.3 - 18.7 mg/dL Creatinine 0.77 0.61 - 1.07 mg/dL eGFR by MDRD eGFR by MDRD PT PTT PANEL Result Value Ref Range PT 13.2 12.1 - 14.8 sec INR 1.0 0.9 - 1.1 PTT 33.1 23.0 - 38.4 sec ED Course Initial Assessment & Plan: 14 year old female with hx of recurrent tonsillitis who is POD #8 s/p adenotonsillectomy on 05/14 who presents with bleeding and hematemesis. Will check CBC, BMP, PT/PTT, and type and screen. Will order a PIV and an NS bolus. Discussed with pt and father that I will consult the on-call ENT resident to evaluate pt in the ED. He may be able to stop the bleeding at the bedside or may need to take pt to the OR. Pt will be admitted for close monitoring of her clinical status and may require a blood transfusion. Pt and father verbalized understanding. I spoke to the on-call ENT resident, who will come evaluate pt in the ED. 2:56 PM ENT resident evaluated pt and plans to take her to the OR. He requests a urine hcg. CBC wnl BMP wnl PT/PTT wnl 3:40 PM RN is escorting pt to the OR. Medical Decision Making Differential Diagnoses considered: post-tonsillectomy bleeding Medical Decision Making The total time providing critical care (excluding time spent for procedures) was: 35 minutes. Clinical Impression and Disposition Final Diagnosis: Final diagnoses: Post-tonsillectomy hemorrhage CH AND DRAMA TEACHER documented in this encounter Plan of Treatment Not on file documented as of this encounter Procedures Procedure Name Priority Date/Time Associated Diagnosis Comments CONTROL OROPHARYNGEAL /TONSILLAR HEMORRHAGE 05/22/2020 3:43 PM SPEECH AND DRAMA TEACHER PT PTT PANEL STAT 05/22/2020 2:55 PM SPEECH AND DRAMA TEACHER CBC W AUTO DIFFERENTIAL STAT 05/22/2020 2:55 PM SPEECH AND DRAMA TEACHER TYPE + SCREEN PANEL STAT 05/22/2020 2 :54 PM SPEECH AND DRAMA TEACHER BASIC METABOLIC PANEL (CALCIUM TOTAL) STAT 05/22/2020 2:54 PM SPEECH AND DRAMA TEACHER ED CRITICAL CARE Routine 05/22/2020 1:54 PM SPEECH AND DRAMA TEACHER Post-tonsillectomy hemorrhage documented in this encounter Results * PT PTT PANEL (05/22/2020 2:55 PM SPEECH AND DRAMA TEACHER) PT 13.2 12.1 - 14.8 sec 05/22/2020 3:22 PM SPEECH AND DRAMA TEACHER [facility] INR 1.0 0.9 - 1.1 05/22/2020 3:22 PM SPEECH AND DRAMA TEACHER [facility] PTT 33.1 23.0 - 38.4 sec 05/22/2020 3:22 PM SPEECH AND DRAMA TEACHER [facility] Blood BLOOD SPECIMEN / Unknown Venipuncture / Unknown 05/22/2020 2:55 PM SPEECH AND DRAMA TEACHER 05/22/2020 3:02 PM SPEECH AND DRAMA TEACHER Narrative [facility] - 05/22/2020 3:22 PM SPEECH AND DRAMA TEACHER Conventional Warfarin Anticoagulant Therapy: INR Reference Range: ??2.0-3.0 Intensive Warfarin Anticoagulant Therapy: INR Reference Range: ? 2.5-3.5 Heparin Therapeutic Range for PTT: ??71.0 - 109.0 seconds. Amira Norton MD LAB - COAGULATION OR DERABLES Performing Organization Address [facility]/State/[facility] Co de Phone Number [facility] [address] [place] [address] * (ABNORMAL) CBC W AUTO DIFFERENTIAL (05/22/2020 2:55 PM SPEECH AND DRAMA TEACHER) WBC 7.8 4.5 - 14.5 x10E9/L 05/22/2020 3:08 PM [facility] WBC Corrected 05/22/2020 3:08 PM [facility] RBC 3.91(L) 4.10 - 5.10 x10E12/L 05/22/2020 3:08 PM [facility] Hemoglobin 12.9 12.0 - 16.0 gm/dL 05/22/2020 3:08 PM [facility] Hematocrit 35.8(L) 36.0 - 47.0 % 05/22/2020 3:08 PM [facility] MCV 91.6 78.0 - 98.0 fl 05/22/2020 3:08 PM [facility] MCH 33.0 25.0 - 35.0 pg 05/22/2020 3:08 PM [facility] MCHC 36.0 31.0 - 37.0 gm/dL 05/22/2020 3:08 PM [facility] Platelet Count 231 100 - 400 x10E9/L 05/22/2020 3:08 PM [facility] RDW-CV 11.8 11.5 - 14.0 % 05/22/2020 3:08 PM [facility] MPV 12.4(H) 6.0 - 9.5 fl 05/22/2020 3:08 PM [facility] Neutrophils % 68.5(H) 24.0 - 66.0 % 05/22/2020 3:08 PM [facility] Lymphocytes % 23.7 22.0 - 61.0 % 05/22/2020 3:08 PM [facility] Monocytes % 6.8 3.0 - 15.0 % 05/22/2020 3:08 PM [facility] Eosinophils % 0.1 0.0 - 10.0 % 05/22/2020 3:08 PM [facility] Basophils % 0.5 % 05/22/2020 3:08 PM [facility] Immature Granulocytes 0.4 % 05/22/2020 3:08 PM [facility] Neutrophil Absolute 5.30 1.08 - 9.57 x10E9/L 05/22/2020 3:08 PM [facility] Lymphocytes Absolute 1.84 0.99 - 8.85 x10E9/L 05/22/2020 3:08 PM [facility] Monocytes Absolute 0.53 0.14 - 2.18 x10E9/L 05/22/2020 3:08 PM [facility] Eosinophils Absolute 0.01 0 - 1.45 x10E9/L 05/22/2020 3:08 PM [facility] Basophils Absolute 0.04 0 - 0.29 x10E9/L 05/22/2020 3:08 PM [facility] Immature Granulocytes Absolute 0.03 0 - 0.15 x10E9/L 05/22/2020 3:08 PM [facility] nRBC Auto 0 /100 WBC 05/22/2020 3:08 PM [facility] Blood BLOOD SPECIMEN / Unknown Venipuncture / Unknown 05/22/2020 2:55 PM SPEECH AND DRAMA TEACHER 05/22/2020 3:02 PM SPEECH AND DRAMA TEACHER Amira Norton MD LAB - HEMATOLOGY ORD ERABLES Performing Organization Address City/[facility]/ZIP Co de Phone Number [facility] [address] [place] [address] * TYPE + SCREEN PANEL (05/22/2020 2:54 PM SPEECH AND DRAMA TEACHER) ABO Rh O POS 05/22/2020 3:42 PM SPEECH AND DRAMA TEACHER [facility] Comment:No history; collect retype. Antibody Screen NEG 0 3:42 PM [facility] Blood Bank BLOOD SPECIMEN / Unknown Venipuncture / Unknown 05/22/2020 2:54 PM SPEECH AND DRAMA TEACHER 05/22/2020 3:01 PM SPEECH AND DRAMA TEACHER Amira Norton MD LAB - BLOOD BANK ORD ERABLES [facility] [address] [place] [address] * (ABNORMAL) BASIC METABOLIC PANEL (CALCIUM TOTAL) (05/22/2020 2:54 PM SPEECH AND DRAMA TEACHER) Glucose 91 70 - 105 mg/dL 05/22/2020 3:20 PM [facility] Sodium 141 136 - 145 mmol/L 05/22/2020 3:20 PM [facility] Potassium 4.3 3.5 - 5.1 mmol/L 05/22/2020 3:20 PM [facility] Chloride 109(H) 98 - 107 mmol/L 05/22/2020 3:20 PM [facility] CO2 24 20 - 28 mmol/L 05/22/2020 3:20 PM [facility] Calcium 8.94(L) 9.08 - 10.48 mg/dL 05/22/2020 3:20 PM [facility] Anion Gap 8 5 - 20 mmol/L 05/22/2020 3:20 PM [facility] BUN 16.8 5.3 - 18.7 mg/dL 05/22/2020 3:20 PM [facility] Creatinine 0.77 0.61 - 1.07 mg/dL 05/22/2020 3:20 PM [facility] eGFR by MDRD 05/22/2020 3:20 PM [facility] Comment: eGFR calculations are not performed for children under 18 years old. eGFR by MDRD 05/22/2020 3:20 PM [facility] Comment: eGFR calculations are not performed for children under 18 years old. Blood BLOOD SPECIMEN / Unknown Venipuncture / Unknown 05/22/2020 2:54 PM SPEECH AND DRAMA TEACHER 05/22/2020 3:02 PM SPEECH AND DRAMA TEACHER Amira Norton MD LAB - CHEMISTRY [facility] [address] [place] [id number] * Critical Care (05/22/2020 1:54 PM SPEECH AND DRAMA TEACHER) Narrative Amira Norton - 05/22/2020 1:54 PM SPEECH AND DRAMA TEACHER Amira Norton MD ? 05/22/2020 ??3:40 PM [...] Amira Norton MD PROCEDURE/MINOR SURG ICAL ORDERABLES documented in this encounter Visit Diagnoses Not on filedocumented in this encounter Administered Medications Inactive Administered Medications - up to 3 most recent administrations Medication Order MAR Action Action Date Dose Rate Site 0.9 % nacl IV BOLUS 1,000 mL 1,000 mL, at 1,000 mL/hr, Administer over 60 Minutes, Intravenous, ONCE, 1 dose, On Mon05/22/20 at 1415 $ New Bag/Syringe 05/22/2020 2:56 PM SPEECH AND DRAMA TEACHER 1,000 mL 1000 mL/hr 0.9% nacl irrigation solution PRN, Starting on Mon05/22/20 at 1550, Until Mon05/22/20 at 1637, Intra-op $ Given 05/22/2020 3:50 PM SPEECH AND DRAMA TEACHER 1,000 mL Operative Site acetaminophen (TYLENOL) suspension 650 mg 650 mg, Oral, NOW, 1 dose, On Mon05/22/20 at 1415 $ Given 05/22/2020 2:10 PM SPEECH AND DRAMA TEACHER 650 mg isolyte-S pH 7.4 infusion at 125 mL/hr, Intravenous, POST-OP CONTINUOUS, Starting on Mon05/22/20 at 1645, Until Mon05/22/20 at 1938, PACU *Current Bag - New Order 05/22/2020 5:00 PM SPEECH AND DRAMA TEACHER 125 mL/hr lidocaine buffered 1-8.4 % injection 0.2 mL 0.2 mL, Infiltration, PRN, Pre-Procedure, Starting on Mon05/22/20 at 1349, Until Mon05/22/20 at 1548, Use J-Tip device (needleless device) to administer. Notify physician if unsuccessful, may repeat x 1. Contraindications/Pr ecautions with buffered lidocaine (J-Tip) use: non-intact skin, bruising, infection or open area at the site of injection, patient receiving chemotherapy, port access, thrombocytopenia with a known platelet count </= 20,000, precautions should be taken for patients receiving blood thinners or patients with blood disorders. $ Given 05/22/2020 2:55 PM SPEECH AND DRAMA TEACHER 0.2 mL morphine injection 2 mg 2 mg, Intravenous, EVERY 10 MIN PRN, Moderate Pain, Severe Pain, Starting on Mon05/22/20 at 1644, Until Mon05/22/20 at 1938, Max dose 4 mg. DO NOT EXCEED MORPHINE 0.2 mg/kg/hr IV. High Risk, High Alert Medication: Must document double check on IV MAR Flowsheet, PACU $ Given 05/22/2020 5:00 PM SPEECH AND DRAMA TEACHER 2 mg $ Given 05/22/2020 4:45 PM SPEECH AND DRAMA TEACHER 2 mg oxymetazoline (AFRIN) 0.05 % nasal spray PRN, Starting on Mon05/22/20 at 1617, Until Mon05/22/20 at 1637, Intra-op $ Given 05/22/2020 4:17 PM SPEECH AND DRAMA TEACHER 2 sprays Operative Site documented in this encounter Active and Recently Administered Medications Times are shown in SPEECH AND DRAMA TEACHER. Scheduled Medication Order 05/20/2020 05/21/2020 05/22/2020 0.9 % nacl IV BOLUS 1,000 mL (COMPLETED) 1,000 mL, at 1,000 mL/hr, Administer over 60 Minutes, Intravenous, ONCE, 1 dose, On Mon05/22/20 at 1415 1456 ($ New Bag/Syri nge - Provider: Bianca Rosales RN)1551 (Stopped - Provider: Paul Peng DO)1556 (Due: Stopped - Provider: Bianca Rosales RN) acetaminophen (TYLENOL) suspension 650 mg (COMPLETED) 650 mg, Oral, NOW, 1 dose, On Mon05/22/20 at 1415 1410 ($ Given - Prov ider: Adama Schuster RN) vitamin B2 (riboflavin) tablet 400 mg 400 mg, Oral, DAILY, First dose on Mon05/23/20 at 0900, Until Discontinued, Post-op Continuous Medication Order 05/20/2020 05/21/2020 05/22/2020 isolyte-S pH 7.4 infusion at 125 mL/hr, Intravenous, POST-OP CONTINUOUS, Starting on Mon05/22/20 at 1645, Until Mon05/22/20 at 1938, PACU 1700 (*Current Bag - New Order - Provider: Tangela Braxton, KEVIN)1830 (Stopped - Provider: Tangela Braxton RN) PRN Medication Order 05/20/2020 05/21/2020 05/22/2020 0.9% nacl irrigation solution (CANCELED) PRN, Starting on Mon05/22/20 at 1550, Until Mon05/22/20 at 1637, Intra-op 1550 ($ Given - Prov ider: Miguel Shepherd) lidocaine buffered 1-8.4 % injection 0.2 mL () 0.2 mL, Infiltration, PRN, Pre-Procedure, Starting on Mon05/22/20 at 1349, Until Mon05/22/20 at 1548, Use J-Tip device (needleless device) to administer. Notify physician if unsuccessful, may repeat x 1. Contraindications/Precautions with buffered lidocaine (J-Tip) use: non-intact skin, bruising, infection or open area at the site of injection, patient receiving chemotherapy, port access, thrombocytopenia with a known platelet count </= 20,000, precautions should be taken for patients receiving blood thinners or patients with blood disorders. 1455 ($ Given - Prov ider: Bianca Rosales RN) morphine injection 2 mg 2 mg, Intravenous, EVERY 10 MIN PRN, Moderate Pain, Severe Pain, Starting on Mon05/22/20 at 1644, Until Mon05/22/20 at 1938, Max dose 4 mg. DO NOT EXCEED MORPHINE 0.2 mg/kg/hr IV. High Risk, High Alert Medication: Must document double check on IV MAR Flowsheet, PACU 1645 ($ Given - Prov ider: Tangela Braxton, KEVIN)1700 ($ Given - Provider: Tangela Braxton, KEVIN) oxymetazoline (AFRIN) 0.05 % nasal spray (CANCELED) PRN, Starting on Mon05/22/20 at 1617, Until Mon05/22/20 at 1637, Intra-op 1617 ($ Given - Prov ider: Miguel Shepherd) documented in this encounter Care Teams Press Washer Relationship Specialty Start Date End Date Leticia Yoder MD PCP - General 08/14/14 Myesha Steward PA-C [facility] [address] Physician Dominatrix 02/20/19 documented as of this encounter
--- OUTSIDE RECORDS SUMMARY | 2024-05-29 23:31 | XMS_ITS | Encounter Summary ---
Author Organization [facility] Address [address] [place] [address] Care Team Providers Care Securities Lending Trader Name Role Phone Leticia Yoder MD Primary Care Provider Myesha Steward PA-C Unavailable [phone] Reason for Visit * Reason Onset Date Comments Appointment 03/27/2020 Encounter Details Date Type Department Care Team (Late st Contact Info) Description 03/27/2020 Telephone [facility] [address] [place] [id number] [facility] Update Information Appointment Social History Tobacco Use Types Packs/Day Years [...] No 06/29/2015 documented as of this encounter Miscellaneous Notes * Telephone Encounter - Manuela Nolan - 03/31/2020 1:57 PM CDT Spoke with grandmother appointment is scheduled for 04-24-20. * Telephone Encounter - Taina Moy RN - 03/27/2020 2:32 PM CDT [facility] Referral Reason: headache vs migraine Referring Source: Insurance Carrier: [employer] Scheduling Plan: General Neuro: YES - NOCO vs. Sarah (either fine) documented in this encounter Plan of Treatment Not on file documented as of this encounter Visit Diagnoses Not on filedocumented in this encounter Care Teams Securities Lending Trader Relationship Specialty Start Date End Date Leticia Yoder MD PCP - General 08/14/14 Myesha Steward PA-C [address] [address] Physician Pearl Diver 02/20/19 documented as of this encounter
--- OUTSIDE RECORDS SUMMARY | 2024-05-29 23:31 | XMS_ITS | Encounter Summary ---
Author Organization [facility] Address [address] [facility] [place] [address] Care Team Providers Care Residential Recycle Driver Name Role Phone Leticia Yoder MD Primary Care Provider Myesha Steward PA-C Unavailable [phone] Encounter Details Date Type Department Care Team (Latest Contact Info) Description 04/24/2020 Travel Social History Tobacco Use Types Packs/Day [...] on filedocumented in this encounter Care Teams Residential Recycle Driver Relationship Specialty Start Date End Date Leticia Yoder MD PCP - General 08/14/14 Myesha Steward PA-C [address] [address] Physician Bore Miner Operator 02/20/19 documented as of this encounter
--- OUTSIDE RECORDS SUMMARY | 2024-05-29 23:31 | XMS_ITS | Encounter Summary ---
Author Organization [facility] Address [address] [facility] [place] [address] Care Team Providers Care Structural Steel Worker Helper Name Role Phone Leticia Yoder MD Primary Care Provider Myesha Steward PA-C Unavailable Reason for Visit * Auth/Cert Specialty Diagnoses / Procedures Referred By Aj guerrero Referred To Contact Diagnoses Hypertrophy of tonsils Acute recurrent tonsillitis Hypertrophy of tonsils [J35.1] Acute recurrent tonsillitis [J03.91] Procedures TONSILLECTOMY AND ADENOIDECTOMY Referral ID Status Reason Start Date Expiration Date Visits Re quested Visits Authorized [id number] 1 1 Encounter Details Date Type Department Care Team (Late st Contact Info) Description 05/14/2020 9:47 AM SALES CENTER ASSOCIATE Anesthesia Event [facility] - Periop [address] [place] [id number] Zahra Sevilla MD [address] [place] [id number] Anesthesia Record Procedure Summary Procedure Name Responsible Anesthesiologist Anesthesia Start Time Anesthesia Stop Time TONSILLECTOMY AND ADENOIDECTOMY (Throat) Zahra Sevilla MD 05/14/20 0947 05/14/20 1036 Events Date Time Event Comment 05/14/2020 0819 0947 An Start 0947 An Start Data 0948 PT Reassessment 0951 An Induction 0956 An Intubation 1000 Timeout Anesthesia part icipated in timeout at the time documented in the record by nursing. 1021 An Emergence 1030 Extubation 1030 an stop data 1030 ANPTO2 1030 Electnc Sig 1036 An Stop Meds Name Total midazolam 2 mg/2mL injection 2 mg fentaNYL 100 mcg/2mL injection 100 mcg lidocaine (MPF) 2% injection 50 mg propofol 200mg/20mL injection 150 mg rocuronium 50 mg/5mL injection 40 mg dexamethasone 4 mg/mL injection 10 mg ondansetron 4 mg/2mL injection 4 mg sugammadex 200 mg/2mL injection 200 mg HYDROmorphone 2 mg/mL injection 1 mg isolyte-S pH 7.4 infusion 800 mL * Agents Name Insp. N2O Exp. Sevoflurane Insp. Sevoflurane * Blood No blood administrations on file. Lines, Drains, and Airways Type Details Placement Removal ETT Date: 05/14/20; Time : 09; Placed By: Zahra Sevilla MD; Vent: easy mask; Induction: Standard IV; Blade Type: Aki; Blade Size: 3; Laryngoscopy View: Grade 1 (full cords); Intubation Adjuncts: Cricoid Pressure; Tube: Carrie tube; Placement: Oral; Tube Type: Cuffed-inflated; Tube Size(mm): 7 MM; Depth of Insertion: 21 CM; Measured From: gum; Attempts: 2; Cuff Infated: Air; Cuff Vol(mL): 4 mL; Verified By: Direct visualization 05/14/20 0956 by Zahra Sevilla MD 05/14/20 1030 by Grzegorz Zhou Anes Asst Procedural Site (Incision) 05/14/20; 1002; Left, Right; Throat (tonsil beds); 05/14/20; 185105/14/20 1002 by Lisa Ramos RN 05/14/20 1852 by Generic, Auto Release Procedural Site (Incision) 05/14/20; 1014; Right, Left; Other (Comments) (adenoids); 05/14/20; 185105/14/20 1014 by Lisa Ramos RN 05/14/20 1852 by Generic, Auto Release documented in this encounter Social History Tobacco Use Types Packs/Day Years Used Date Smoking Tobacco: Never Smokeless Tobacco: Never AUDIT-C Answer Date Recorded Q1: How often [...] COVID-19? No / Unsure 05/04/2020 9:38 AM SALES CENTER ASSOCIATE documented as of this encounter Functional Status [...] as of this encounter Progress Notes * Zahra Sevilla MD - 05/14/2020 1:03 PM CST ANESTHESIA POSTOP EVALUATION NOTE Procedure: TONSILLECTOMY AND ADENOIDECTOMY (N/A Throat) Jerrod Harris is a 14 year old female Patient Vitals for the past 6 hrs: BP Temp Pulse Resp SpO2 Pain Rating Score #1 Pain Scale/Observation 05/14/20 0756 -- 97.3 ??F (36.3 ??C) -- -- -- -- -- 05/14/20 0826 (!) 118/88 -- 64 16 97 % -- -- 05/14/20 0830 -- -- -- -- -- -- No/denies pain 05/14/20 1033 (!) 136/98 98.1 ??F (36.7 ??C) 88 16 100 % -- B 05/14/20 1045 114/74 -- 78 12 96 % 2 N 05/14/20 1100 (!) 124/86 -- 70 14 96 % -- -- 05/14/20 1115 120/77 -- 68 14 98 % -- -- 05/14/20 1130 (!) 118/90 -- 64 14 98 % 2 N 05/14/20 1205 (!) 120/89 -- 90 12 97 % 5 N 05/14/20 1225 120/78 -- 92 16 97 % 2 N Anesthesia Type: general ETT Pre-op Diagnosis Codes: * Hypertrophy of tonsils [J35.1] * Acute recurrent tonsillitis [J03.91] Mental Status: awake and neurologic status has returned to preoperative level Respiratory Function: natural Cardiac Function: stable Postop Pain: adequate Postop Hydration: adequate Postop Nausea: none Assessment: no apparent anesthetic complications and patient tolerated procedure well Patient Disposition: Release from Anesthesia Care COMPLICATIONS: No complications documented. S CENTER ASSOCIATE * Zahra Sevilla MD - 05/14/2020 8:17 AM CST ANESTHESIA PREOPERATIVE EVALUATION NOTE Procedure: TONSILLECTOMY AND ADENOIDECTOMY (N/A Throat) NPO status: *Other (05/14/2020 7:57 AM) Last Solids/Dairy: 2300 (05/14/2020 7:57 AM) Last Clear Liquids: 0400 (water) (05/14/2020 7:57 AM) Vitals: Patient Vitals for the past 6 hrs: Temp 05/14/20 0756 97.3 ??F (36.3 ??C) ANESTHESIA PRE-EVALUATION NOTE Physical Exam: Orientation X3 Airway/Mallampati Score: I Mouth Opening Distance: 3.5 fingerwidths Neck ROM: full TM Distance: > 3 FB Teeth: normal Heart: normal - S1 S2 Lungs: clear to ausculation bilaterally Abdomen Exam: soft Review of Systems: History of anesthetic complications: No ANESTHESIA PLAN ASA Score: 2 NPO Status: No liquids within 2 hours and No solids for 6 hours Anesthesia Plan: general ETT Planned Induction: intravenous Planned Postop Destination: PACU Anesthetic plan was discussed with: patient, family, father Anesthetic Plan discussion was: Consented BMI, Height, Weight Tobacco History Estimated body mass index is 21.08 kg/m?? as calculated from the following: Height as of this encounter: 1.64 m (5' 4.57 ). Weight as of this encounter: 56.7 kg (125 lb). Social History Tobacco Use Smoking Status Never Smoker Smokeless Tobacco Never Used Alcohol History Drug History Social History Substance and Sexual Activity Alcohol Use None Social History Substance and Sexual Activity Drug Use Not on file Outpatient Medications: Inpatient Medications: Outpatient Medications Marked as Taking for the 05/14/20 encounter (Hospital Encounter) Medication Sig Last Dose ??? 07/01 Take 1 tablet by mouth once daily 05/06/2020 at Unknown time ??? naproxen Take 375 mg by mouth every 12 hours as needed 05/06/2020 at Unknown time ??? ondansetron (disintegrating) Take 1 tablet by mouth every 6 hours as needed for Nausea/VomitingAllow tablet to dissolve on the tongue Past Week at Unknown time ??? riboflavin Take 1 capsule by mouth once daily 05/06/2020 at Unknown time No current facility-administered medications for this encounter. Allergies: No Known Allergies Relevant Problems No [...] PROCEDURE Right 06/29/2015 Right; INTERMEDIATE WOUND CLOSURE Lab Results: Invalid input(s): OSMOLAITY Invalid input(s): PREGTESTUR Invalid input(s): ANIONAPART, PREALBIUMIN, [id number] S CENTER ASSOCIATE documented in this encounter Procedure Notes * Zahra Sevilla MD - 05/14/2020 10:00 AM CSTAssociated Order(s): ETT Placement Endotracheal Tube Placement: Intubation Event Date/Time: 05/14/2020 9:56 AM Procedure: intubation (14940). Procedure Section: Sedation: IV sedation. Indications for Airway Management: airway protection Procedure pretreatments used? No Induction: standard IV Patient Position: sniffing Mask Ventilation: easy. Blade Type: Aki Blade Size: 3 Laryngoscopy View: grade 1 (full cords) Intubation Adjuncts: cricoid pressure Tube: CARRIE tube Placement: oral Tube type: cuff - inflated Tube Size (MM): 7 Depth of Insertion (CM): 21 Measured From: gums Cuff volume (mL): 4 Cuff Inflated With: air Number of Attempts: 2. Ventilation between attempts: Yes. Placement Verified By: direct visualization CXR Findings: ETT in proper place. Tube secured with: adhesive tape. Dentition unchanged? Yes Difficult Airway? No. Procedure Start Time: 05/14/2020 9:56 AM. Staff Section Anesthesia Provider: Zahra Sevilla MD, Performed the procedure Additional Comments: Intubated by Vishal Sanchez. S CENTER ASSOCIATE documented in this encounter Miscellaneous Notes * Addendum Note - Zahra Sevilla MD - 06/03/2020 7:37 AM CST Addendum created 06/03/20 0737 by Zahra Sevilla MD Attestation recorded in Intraprocedure, Intraprocedure Attestations filed S CENTER ASSOCIATE * Anesthesia Transfer of Care - Grzegorz Stanford Anes Asst - 05/14/2020 10:37 AM CST ANESTHESIA TRANSFER OF CARE NOTE Today's Date: 05/14/2020 Date of : 2005 Patient: Jerrod Harris Procedure(s): TONSILLECTOMY AND ADENOIDECTOMY Surgeon(s): Primary: Ximena Chen MD Resident - Assisting: Miguel Shepherd MD Preop Diagnosis: Pre-op Diagnois: * Hypertrophy of tonsils [J35.1] * Acute recurrent tonsillitis [J03.91] Pre-op Meds (From admission, onward) Start Stop Status Route Frequency Ordered 05/14/20 0819 0.9% NaCl injection 2-10 mL -- Dispensed IK PRN 05/14/20 0821 05/14/20 1002 0.9% nacl irrigation solution -- Sent PRN 05/14/20 1005 05/14/20 1031 diphenhydrAMINE (BENADRYL) injection 12.5 mg -- Verified IV POST-OP MULTIPLE 05/14/20 1031 05/14/20 1031 HYDROmorphone (DILAUDID) injection 0.2 mg -- Verified IV POST-OP MULTIPLE 05/14/20 1031 05/14/20 1045 isolyte-S pH 7.4 infusion -- Verified IV POST-OP CONTINUOUS 05/14/20 1031 Post-op Diagnosis: * Hypertrophy of tonsils [J35.1] * Acute recurrent tonsillitis [J03.91] . No Known Allergies Vitals: Patient Vitals for the past 3 hrs: BP Temp Pulse Resp SpO2 05/14/20 0826 (!) 118/88 -- 64 16 97 % 05/14/20 0756 -- 97.3 ??F (36.3 ??C) -- -- -- Lines, Drains, and Airways Type Details Placement Removal ETT Date: 05/14/20; Time: 955; Placed By: Zahra Sevilla MD; Vent: easy mask; Induction: Standard IV; Blade Type: Aki; Blade Size: 3; Laryngoscopy View: Grade 1 (full cords); Intubation Adjuncts: Cricoid Pressure; Tube: Carrie tube; Placement: Oral; Tube Type: Cuffed-inflated; Tube Size(mm): 7 MM; Depth of Insertion: 21 CM; Measured From: gum; Attempts: 2; Cuff Infated: Air; Cuff Vol(mL): 4 mL; Verified By: Direct visualization 05/14/20 09 by Zahra Sevilla MD 05/14/20 1030 by Grzegorz Stanford Anes Asst Intraprocedure I/O Totals Intake isolyte-S pH 7.4 infusion 800.00 mL Total Intake 800 mL Patient Transfer Location: PACU Transport Airway: spontaneous respirations and supplemental O2 Transport Monitoring: heart rate and continuous pulse oximetry Complications: None Handoff Given? [...] understanding of report from the receiving PACUteam. Jarvis Lion S CENTER ASSOCIATE documented in this encounter Plan of Treatment Not on file documented as of this encounter Procedures Procedure Name Priority Date/Time Associated Diagnosis Comments ENDOTRACHEAL TUBE NOTE Routine 05/14/2020 10:00 AM SALES CENTER ASSOCIATE documented in this encounter Results * ETT LINE PERFORMABLE (05/14/2020 10:00 AM SALES CENTER ASSOCIATE) Narrative Zahra Sevilla MD - 05/14/2020 10:00 AM SALES CENTER ASSOCIATE Zahra Sevilla MD ? 05/14/2020 ??1:05 PM Endotracheal Tube Placement: ? Intubation Event Date/Time: ??05/14/2020 9:56 AM Procedure: intubation (30537). Procedure Section: ?? Sedation: IV sedation. Indications for Airway Management: ??airway protection Procedure pretreatments used? ??No Induction: standard IV Patient Position: ??sniffing Mask Ventilation: easy. Blade Type: Aki Blade Size: 3 Laryngoscopy View: grade 1 (full cords) Intubation Adjuncts: cricoid pressure Tube: CARRIE tube Placement: oral Tube type: cuff - [...] Hi Zahra Sevilla MD GENERAL ANESTHESIA ORDERABLES documented in this encounter Visit Diagnoses Not on filedocumented in this encounter Administered Medications Inactive Administered Medications - up to 3 most recent administrations Medication Order MAR Action Action Date Dose Rate Site dexamethasone (DECADRON) injection PRN, Starting on Nathaly 05/14/20 at 0955, Until Nathaly 05/14/20 at 1037, Anesthesia Intra-op $ Given 05/14/2020 9:55 AM SALES CENTER ASSOCIATE 10 mg fentaNYL (PF) (SUBLIMAZE) injection Intravenous, PRN, Starting on Nathaly 05/14/20 at 0951, Until Nathaly 05/14/20 at 1037, Anesthesia Intra-op $ Given 05/14/2020 10:35 AM SALES CENTER ASSOCIATE 50 mcg $ Given 05/14/2020 9:51 AM SALES CENTER ASSOCIATE 50 mcg HYDROmorphone (DILAUDID) injection PRN, Starting on Nathaly 05/14/20 at 0958, Until Nathaly 05/14/20 at 1037, Anesthesia Intra-op $ Given 05/14/2020 10:20 AM SALES CENTER ASSOCIATE 0.2 mg $ Given 05/14/2020 10:16 AM SALES CENTER ASSOCIATE 0.4 mg $ Given 05/14/2020 9:58 AM SALES CENTER ASSOCIATE 0.4 mg isolyte-S pH 7.4 infusion Intravenous, CONTINUOUS PRN, Starting on Nathaly 05/14/20 at 0947, Until Nathaly 05/14/20 at 1037, Anesthesia Intra-op $ New Bag/Syringe 05/14/2020 9:47 AM SALES CENTER ASSOCIATE lidocaine hcl (PF) (XYLOCAINE MPF) 2 % injection Intravenous, PRN, Starting on Nathaly 05/14/20 at 0951, Until Nathaly 05/14/20 at 1037, Anesthesia Intra-op $ Given 05/14/2020 9:51 AM SALES CENTER ASSOCIATE 50 mg midazolam (PF) (VERSED) injection PRN, Starting on Nathaly 05/14/20 at 0945, Until Nathaly 05/14/20 at 1037, Anesthesia Intra-op $ Given 05/14/2020 9:45 AM SALES CENTER ASSOCIATE 2 mg Ondansetron HCl (ZOFRAN) injection PRN, Starting on Nathaly 05/14/20 at 1010, Until Nathaly 05/14/20 at 1037, Anesthesia Intra-op $ Given 05/14/2020 10:10 AM SALES CENTER ASSOCIATE 4 mg propofol (DIPRIVAN) injection Intravenous, PRN, Starting on Nathaly 05/14/20 at 0951, Until Nathaly 05/14/20 at 1037, Anesthesia Intra-op $ Given 05/14/2020 9:51 AM SALES CENTER ASSOCIATE 150 mg rocuronium (ZEMURON) injection Intravenous, PRN, Starting on Nathaly 05/14/20 at 0951, Until Nathaly 05/14/20 at 1037, Anesthesia Intra-op $ Given 05/14/2020 9:51 AM SALES CENTER ASSOCIATE 40 mg sugammadex (BRIDION) injection PRN, Starting on Nathaly 05/14/20 at 1020, Until Nathaly 05/14/20 at 1037, Anesthesia Intra-op $ Given 05/14/2020 10:20 AM SALES CENTER ASSOCIATE 200 mg documented in this encounter Care Teams Structural Steel Worker Helper Relationship Specialty Start Date End Date Guillaume-Leticia Rowley MD PCP - General 08/14/14 Myesha Steward PA-C [address] [address] Physician Mobile Application Tester 02/20/19 documented as of this encounter
--- OUTSIDE RECORDS SUMMARY | 2024-05-29 23:31 | XMS_ITS | Encounter Summary ---
Author Organization [facility] Address [address] [facility] [place] [address] Care Team Providers Care Electronics Design Engineer Name Role Phone Leticia Yoder MD Primary Care Provider Myesha Steward PA-C Unavailable Encounter Details Date Type Department Care Team (Latest Contact Info) Description 05/14/2020 Travel Social History Tobacco Use Types Packs/Day [...] COVID-19? No / Unsure 05/04/2020 9:38 AM STOVE MECHANIC documented as of this encounter Functional Status [...] No 05/14/2020 documented as of this encounter Plan of Treatment Not on file documented as of this encounter Visit Diagnoses Not on filedocumented in this encounter Care Teams Electronics Design Engineer Relationship Specialty Start Date End Date Leticia Yoder MD PCP - General 08/14/14 Myesha Steward, EDMONDC [address] [address] Physician Fisher Pound Net Or Trap 02/20/19 documented as of this encounter
--- OUTSIDE RECORDS SUMMARY | 2024-05-29 23:31 | XMS_ITS | Encounter Summary ---
Author Organization [facility] Address [address] [facility] [place] [address] Care Team Providers Care Supervisor Screen Printing Name Role Phone Leticia Yoder MD Primary Care Provider Myesha Steward PA-C Unavailable [phone] Reason for Visit * Reason Comments POST-OP PROBLEM Post Op T&A (05/14/20 20)-bleeding. No fevers. started last PM with spitting up scabs and blood. Pt also throwing up clots today. * Auth/Cert Specialty Diagnoses / Procedures Referred By Aj t Referred To Contact Referral ID Status Reason Start Date Expiration Date Visits Re quested Visits Authorized [id number] 1 1 Encounter Details Date Type Department Care Team (Late st Contact Info) Description 05/22/2020 1:24 PM ASSURANCE ASSOCIATE - 05/22/2020 6:37 PM ASSURANCE ASSOCIATE Emergency [facility] [address] [place] [address] Amira Norton MD [address] [facility] DEPARTMENT [place] [address] Antonio Velasquez MD [address] [facility] [address] [place] [address] Emergency Medicine Discharge Disposition: Home or Self Care Social [...] COVID-19? No / Unsure 05/04/2020 9:38 AM ASSURANCE ASSOCIATE documented as of this encounter Last Filed Vital Signs Vital Sign Reading Time Taken Comments Blood Pressure 125/86 05/22/2020 6:05 PM ASSURANCE ASSOCIATE Pulse 64 05/22/2020 6:05 PM ASSURANCE ASSOCIATE Temperature 36.7 ??C (98 ??F) 05/22/2020 4:37 PM ASSURANCE ASSOCIATE Respiratory Rate 16 05/22/2020 6:30 PM ASSURANCE ASSOCIATE Oxygen Saturation 98% 05/22/2020 6:30 PM ASSURANCE ASSOCIATE Inhaled Oxygen Concentration - - Weight 55.2 kg (121 lb 11.1 oz) 05/22/2020 2:07 PM ASSURANCE ASSOCIATE Height - - Body Mass Index - [...] as of this encounter Discharge Summaries * Naty Shepherdjanae Caro - 05/22/2020 4:28 PM CST Images from the original note were not included. Attending Physician: Antonio Velasquez MD Office 05/22/20 4:28 PM ENT SURGERY DISCHARGE SUMMARY Patient ID: Name: Jerrod Harris MR#: [id number] Date of : 2005 Age: [age] year old Discharge Date: 05/22/20 Discharge Diagnosis: Secondary post-tonsillectomy hemorrhage Procedure: Control of post-tonsillectomy hemorrhage, left inferior pole Discharge Condition: Stable Discharge Procedure Orders Why you were hospitalized Order Specific Question Answer Comments Your discharge diagnosis is: Post tonsillectomy secondary hemorrhage [[id number]] No special diet needed Resume normal home [...] necessary, please * call ENT office at [phone] (8am to 5pm M-F) * call ENT doctor technical information specialist at [phone] (5pm to 8am M-F or weekends) * [...] as needed for any questions/concerns. Please call [phone] to schedule. If you have questions about surgery or your child's recovery, please call our nurses at [phone]. Miguel Shepherd MD RANCE ASSOCIATE documented in this encounter Medications at Time [...] name: Jerrod Harris Date of : 2005 [facility]: [id number] Chief Complaint: Chief Complaint Patient presents with [...] Fever or Pain 237 mL 1 ??? ssugauy-lkzkjznycpsue-gyzoejoo 250-250-65 MG tablet Take by mouth every [...] PLTCOUNT, BANDMANPCT, SEGMANPCT, LYMPHMANPCT in the last 15714 hours. No results for input(s): SODIUM, POTASSIUM, CHLORIDE, CO2, BUN, CREATININE, GLUCOSE, CALCIUM in thelast 82093 hours. Imaging No relevant imaging to report Assessment Jerrod is a 14 year oldfemale with PMH s/f adenotonsillar hypertrohy and recurrent tonsillitis, s/padenotonsillectomy 05/14/20, now presenting with post tonsillectomy hemorrhage. Stable, protecting airway Plan To OR urgently for control of post tonsillectomy hemorrhage Keep NPO IV fluids Hcg Consent to be obtained via telephone (Grandparents, custody) Carlos Rosenbaum MD Otolaryngology Resident 05/22/2020 RANCE ASSOCIATE Associated attestation - Antonio Velasquez MD - 05/22/2020 3:45 PM ASSURANCE ASSOCIATE I have seen and examined the patient with the resident and I agree with the findings and plan of care as documented by the resident. To the OR emergently for control of tonsillar hemorrhage. Date of service: 05/22/2020 Antonio Velasquez MD documented in this encounter OR Notes * Operative - Antonio Velasquez MD - 05/22/2020 3:15 PM CST [facility] DIVISION OF PEDIATRIC OTOLARYNGOLOGY- HEAD & NECK SURGERY OPERATIVE REPORT PATIENT NAME: Jerrod Harris DATE OF : 2005 CSN: [id number] DATE OF OPERATION: 05/22/2020 1515 Pre Operative Diagnoses: Post-tonsillectomy hemorrhage Post Operative Diagnoses: Same Procedures: Control of oropharyngeal hemorrhage Surgeon: Antonio Velasquez M.D. Utility Person: Miguel Shepherd M.D. Anesthesia: General endotracheal Findings: [...] - Follow up as originally planned (PRN) RANCE ASSOCIATE documented in this encounter ED Notes * [...] hours a day, from any computer, through [email or web address], the online version of our electronic medical record. If you would like to use this service, please call Roxana Madsen, Connectivity Coordinator, at . We appreciate the opportunity to care for your patients. If you would like additional information, please call the emergency department directly at . Sincerely, Dr. Norton Division of Emergency Medicine [facility], [place] [facility] [place] DESIGNATED EMERGENCY DEPARTMENT Provider contact with the patient: 05/22/2020 1:54 PM Jerrod Harris [id number] [facility] EM[facility]GENC[facility] History Chief Complaint Patient presents [...] file Gets together: Not on file Attends restorationism service: Not on file Active member of [...] Fever or Pain 237 mL 1 ??? enmosnr-qtugovdgzaoov-psmnnvly 250-250-65 MG tablet Take by mouth every [...] (!) 123/87 Pulse: 88 92 Resp: 20 Temp: 98.2 ??F (36.8 ??C) 98.7 [...] Disposition Final Diagnosis: Final diagnoses: Post-tonsillectomy hemorrhage RANCE ASSOCIATE documented in this encounter Plan of Treatment Not on file documented as of this encounter Procedures Procedure Name Priority Date/Time Associated Diagnosis Comments CONTROL OROPHARYNGEAL /TONSILLAR HEMORRHAGE 05/22/2020 3:43 PM ASSURANCE ASSOCIATE PT PTT PANEL STAT 05/22/2020 2:55 PM ASSURANCE ASSOCIATE CBC W AUTO DIFFERENTIAL STAT 05/22/2020 2:55 PM ASSURANCE ASSOCIATE TYPE + SCREEN PANEL STAT 05/22/2020 2 :54 PM ASSURANCE ASSOCIATE BASIC METABOLIC PANEL (CALCIUM TOTAL) STAT 05/22/2020 2:54 PM ASSURANCE ASSOCIATE ED CRITICAL CARE Routine 05/22/2020 1:54 PM ASSURANCE ASSOCIATE Post-tonsillectomy hemorrhage documented in this encounter Results * PT PTT PANEL (05/22/2020 2:55 PM ASSURANCE ASSOCIATE) PT 13.2 12.1 - 14.8 sec 05/22/2020 3:22 PM ASSURANCE ASSOCIATE [facility] INR 1.0 0.9 - 1.1 05/22/2020 3:22 PM ASSURANCE ASSOCIATE [facility] PTT 33.1 23.0 - 38.4 sec 05/22/2020 3:22 PM ASSURANCE ASSOCIATE [facility] Blood BLOOD SPECIMEN / Unknown Venipuncture / Unknown 05/22/2020 2:55 PM ASSURANCE ASSOCIATE 05/22/2020 3:02 PM ASSURANCE ASSOCIATE Narrative [facility] - 05/22/2020 3:22 PM ASSURANCE ASSOCIATE Conventional Warfarin Anticoagulant Therapy: INR Reference Range: ??2.0-3.0 Intensive Warfarin Anticoagulant Therapy: INR Reference Range: ? 2.5-3.5 Heparin Therapeutic Range for PTT: ??71.0 - 109.0 seconds. Amira Norton MD LAB - COAGULATION OR DERABLES Performing Organization Address City/State/[facility] Co de Phone Number [facility] [address] [place] [address] * (ABNORMAL) CBC W AUTO DIFFERENTIAL (05/22/2020 2:55 PM [facility]) WBC 7.8 4.5 - 14.5 x10E9/L 05/22/2020 3:08 PM [facility] WBC Corrected 05/22/2020 3:08 PM [facility] RBC 3.91(L) 4.10 - 5.10 x10E12/L 05/22/2020 3:08 PM [facility] Hemoglobin 12.9 12.0 - 16.0 gm/dL 05/22/2020 3:08 PM [facility] Hematocrit 35.8(L) 36.0 - 47.0 % 05/22/2020 3:08 PM [facility] MCV 91.6 78.0 - 98.0 fl 05/22/2020 3:08 PM [facility] MCH 33.0 25.0 - 35.0 pg 05/22/2020 3:08 PM [facility] MCHC 36.0 31.0 - 37.0 gm/dL 05/22/2020 3:08 PM [facility] Platelet Count 231 100 - 400 x10E9/L 05/22/2020 3:08 PM [facility] RDW-CV 11.8 11.5 - 14.0 % 05/22/2020 3:08 PM [facility] MPV 12.4(H) 6.0 - 9.5 fl 05/22/2020 3:08 PM [facility] Neutrophils % 68.5(H) 24.0 - 66.0 % 05/22/2020 3:08 PM [facility] Lymphocytes % 23.7 22.0 - 61.0 % 05/22/2020 3:08 PM [facility] Monocytes % 6.8 3.0 - 15.0 % 05/22/2020 3:08 PM [facility] Eosinophils % 0.1 0.0 - 10.0 % 05/22/2020 3:08 PM [facility] Basophils % 0.5 % 05/22/2020 3:08 PM [facility] Immature Granulocytes 0.4 % 05/22/2020 3:08 PM [facility] Neutrophil Absolute 5.30 1.08 - 9.57 x10E9/L 05/22/2020 3:08 PM [facility] Lymphocytes Absolute 1.84 0.99 - 8.85 x10E9/L 05/22/2020 3:08 PM [facility] Monocytes Absolute 0.53 0.14 - 2.18 x10E9/L 05/22/2020 3:08 PM [facility] Eosinophils Absolute 0.01 0 - 1.45 x10E9/L 05/22/2020 3:08 PM [facility] Basophils Absolute 0.04 0 - 0.29 x10E9/L 05/22/2020 3:08 PM [facility] Immature Granulocytes Absolute 0.03 0 - 0.15 x10E9/L 05/22/2020 3:08 PM [facility] nRBC Auto 0 /100 WBC 05/22/2020 3:08 PM [facility] Blood BLOOD SPECIMEN / Unknown Venipuncture / Unknown 05/22/2020 2:55 PM ASSURANCE ASSOCIATE 05/22/2020 3:02 PM ASSURANCE ASSOCIATE Amira Norton MD LAB - HEMATOLOGY ORD ERABLES Performing Organization Address City/[facility]/ZIP Co de Phone Number [facility] [address] [place] [address] * TYPE + SCREEN PANEL (05/22/2020 2:54 PM ASSURANCE ASSOCIATE) ABO Rh O POS 05/22/2020 3:42 PM ASSURANCE ASSOCIATE [facility] Comment:No history; collect retype. Antibody Screen NEG 0 3:42 PM ASSURANCE ASSOCIATE [facility] Blood Bank BLOOD SPECIMEN / Unknown Venipuncture / Unknown 05/22/2020 2:54 PM ASSURANCE ASSOCIATE 05/22/2020 3:01 PM ASSURANCE ASSOCIATE Amira Norton MD LAB - BLOOD BANK ORD ERABLES Performing Organization Address [facility]/ZIP Co de Phone Number [facility] [address] [place] [address] * (ABNORMAL) BASIC METABOLIC PANEL (CALCIUM TOTAL) (05/22/2020 2:54 PM ASSURANCE ASSOCIATE) Glucose 91 70 - 105 mg/dL 05/22/2020 3:20 PM ASSURANCE ASSOCIATE [facility] Sodium 141 136 - 145 mmol/L 05/22/2020 3:20 PM [facility] Potassium 4.3 3.5 - 5.1 mmol/L 05/22/2020 3:20 PM [facility] Chloride 109(H) 98 - 107 mmol/L 05/22/2020 3:20 PM [facility] CO2 24 20 - 28 mmol/L 05/22/2020 3:20 PM [facility] Calcium 8.94(L) 9.08 - 10.48 mg/dL 05/22/2020 3:20 PM [facility] Anion Gap 8 5 - 20 mmol/L 05/22/2020 3:20 PM [facility] BUN 16.8 5.3 - 18.7 mg/dL 05/22/2020 3:20 PM [facility] Creatinine 0.77 0.61 - 1.07 mg/dL 05/22/2020 3:20 PM [facility] eGFR by MDRD 05/22/2020 3:20 PM [facility] Comment: eGFR calculations are not performed for children under 18 years old. eGFR by MDRD 05/22/2020 3:20 PM [facility] Comment: eGFR calculations are not performed for children under 18 years old. Blood BLOOD SPECIMEN / Unknown Venipuncture / Unknown 05/22/2020 2:54 PM ASSURANCE ASSOCIATE 05/22/2020 3:02 PM ASSURANCE ASSOCIATE Amira Norton MD LAB - CHEMISTRY [facility]ANI PRES[facility] Organization Address City/[facility] Phone Number [facility] [address] [place] [phone] * Critical Care (05/22/2020 1:54 PM ASSURANCE ASSOCIATE) Narrative Amira Norton - 05/22/2020 1:54 PM ASSURANCE ASSOCIATE Amira Norton MD ? 05/22/2020 ??3:40 PM [...] ORDERABLES documented in this encounter Visit Diagnoses Diagnosis Post-tonsillectomy hemorrhage- Primary Hemorrhage complicating a procedure documented in this encounter Administered Medications Inactive Administered Medications - up to 3 most recent administrations Medication Order MAR Action Action Date Dose Rate Site 0.9 % nacl IV BOLUS 1,000 mL 1,000 mL, at 1,000 mL/hr, Administer over 60 Minutes, Intravenous, ONCE, 1 dose, On Mon05/22/20 at 1415 $ New Bag/Syringe 05/22/2020 2:56 PM ASSURANCE ASSOCIATE 1,000 mL 1000 mL/hr acetaminophen (TYLENOL) suspension 650 mg 650 mg, Oral, NOW, 1 dose, On Mon05/22/20 at 1415 $ Given 05/22/2020 2:10 PM ASSURANCE ASSOCIATE 650 mg isolyte-S pH 7.4 infusion at 125 mL/hr, Intravenous, POST-OP CONTINUOUS, Starting on Mon05/22/20 at 1645, Until Mon05/22/20 at 1938, PACU *Current Bag - New Order 05/22/2020 5:00 PM ASSURANCE ASSOCIATE 125 mL/hr lidocaine buffered 1-8.4 % injection 0.2 mL 0.2 mL, Infiltration, PRN, Pre-Procedure, Starting on Mon05/22/20 at 1349, Until Mon05/22/20 at 1548, Use J-Tip device (needleless device) to administer. Notify physician if unsuccessful, may repeat x 1. Contraindications/Precau tions with buffered lidocaine (J-Tip) use: non-intact skin, bruising, infection or open area at the site of injection, patient receiving chemotherapy, port access, thrombocytopenia with a known platelet count </= 20,000, precautions should be taken for patients receiving blood thinners or patients with blood disorders. $ Given 05/22/2020 2:55 PM ASSURANCE ASSOCIATE 0.2 mL morphine injection 2 mg 2 mg, Intravenous, EVERY 10 MIN PRN, Moderate Pain, Severe Pain, Starting on Mon05/22/20 at 1644, Until Mon05/22/20 at 1938, Max dose 4 mg. DO NOT EXCEED MORPHINE 0.2 mg/kg/hr IV. High Risk, High Alert Medication: Must document double check on IV MAR Flowsheet, PACU $ Given 05/22/2020 5:00 PM ASSURANCE ASSOCIATE 2 mg $ Given 05/22/2020 4:45 PM ASSURANCE ASSOCIATE 2 mg documented in this encounter Active and Recently Administered Medications Times are shown in ASSURANCE ASSOCIATE. Scheduled Medication Order 05/20/2020 05/21/2020 05/22/2020 0.9 % nacl IV BOLUS 1,000 mL (COMPLETED) 1,000 mL, at 1,000 mL/hr, Administer over 60 Minutes, Intravenous, ONCE, 1 dose, On Mon05/22/20 at 1415 1456 ($ New Bag/Syri nge - Provider: Bianca Rosales, KEVIN)1551 (Stopped - Provider: Paul Peng, DO)1556 (Due: Stopped - Provider: Bianca Rosales, KEVIN) acetaminophen (TYLENOL) suspension 650 mg (COMPLETED) 650 mg, Oral, NOW, 1 dose, On Mon05/22/20 at 1415 1410 ($ Given - Prov ider: Adama Schuster RN) vitamin B2 (riboflavin) tablet 400 mg 400 mg, Oral, DAILY, First dose on 05/23/20 at 0900, Until Discontinued, Post-op Continuous Medication Order 05/20/2020 05/21/2020 05/22/2020 isolyte-S pH 7.4 infusion at 125 mL/hr, Intravenous, POST-OP CONTINUOUS, Starting on Mon05/22/20 at 1645, Until Mon05/22/20 at 1938, PACU 1700 (*Current Bag - New Order - Provider: Tangela Braxton RN)1830 (Stopped - Provider: Tangela Braxton RN) PRN [...] 1645 ($ Given - Prov ider: Tangela Braxton RN)1700 ($ Given - Provider: Tangela Braxton RN) oxymetazoline (AFRIN) 0.05 % nasal spray (CANCELED) PRN, Starting on Mon05/22/20 at 1617, Until Mon05/22/20 at 1637, Intra-op 1617 ($ Given - Prov ider: Miguel Shepherd) documented in this encounter Care Teams Supervisor Screen Printing Relationship Specialty Start Date End Date Leticia Yoder MD PCP - General 08/14/14 Myesha Steward PA-C [address] [address] Physician Utility Person 02/20/19 documented as of this encounter
--- OUTSIDE RECORDS SUMMARY | 2024-05-29 23:31 | XMS_ITS | Encounter Summary ---
Author Organization [facility] Address [address] [facility] [place] [address] Care Team Providers Care Data Warehouse Manager Name Role Phone Leticia Yoder MD Primary Care Provider Myesha Steward PA-C Unavailable [phone] Reason for Visit * Reason Onset Date Comments Update 05/22/2020 Encounter Details Date Type Department Care Team (Late st Contact Info) Description 05/22/2020 Telephone [facility] Pediatrics - ENT [facility] [place] [address] Ximena Chen MD Update Social History Tobacco Use Types Packs/Day Years [...] COVID-19? No / Unsure 05/04/2020 9:38 AM STRAND GALVANIZER documented as of this encounter Functional Status [...] No 05/14/2020 documented as of this encounter Miscellaneous Notes * Telephone Encounter - Neelam Deutsch RN - 05/22/2020 1:18 PM STRAND GALVANIZER Received call from father. Jerrod is POD# 8 from T&A with Dr Chen. Father states she started spitting up blood and had bloody emesis x1. [place] [facility] [place] Access Center notified. [place] GALVANIZER documented in this encounter Plan of Treatment Not on file documented as of this encounter Visit Diagnoses Not on filedocumented in this encounter Care Teams Data Warehouse Manager Relationship Specialty Start Date End Date Leticia Yoder MD PCP - General 08/14/14 Myesha Steward PA-C [address] [address] Physician Electric Power Line Examiner 02/20/19 documented as of this encounter
--- OUTSIDE RECORDS SUMMARY | 2024-05-29 23:31 | XMS_ITS | Encounter Summary ---
Author Organization [facility] Address [address] [facility] [place] [address] Care Team Providers Care Corner Cutter Machine Operator Name Role Phone Leticia Yoder MD Primary Care Provider Myesha Steward PA-C Unavailable Reason for Visit * Reason Onset Date Comments Pre-op Clearance 01/07/2020 covid testing Nurse Only 01/07/2020 Encounter Details Date Type Department Care Team (Late st Contact Info) Description 01/07/2020 Telephone [facility] Pediatrics [address] [place] [id number] Ximena Chen MD Pre-op Clearance (covid testing); Nurse Only Social History Tobacco Use Types Packs/Day Years [...] on filedocumented in this encounter Care Teams Corner Cutter Machine Operator Relationship Specialty Start Date End Date Leticia Yoder MD PCP - General 08/14/14 Myesha Steward, PANKAJ [address] [address] Physician Musculoskeletal Physiotherapist 02/20/19 documented as of this encounter
--- OUTSIDE RECORDS SUMMARY | 2024-05-29 23:32 | XMS_ITS | Encounter Summary ---
Author Organization [facility] Address [address] [facility] [facility] [place] [address] Care Team Providers Care Search Strategist Name Role Phone Leticia Yoder MD Primary Care Provider Reason for Visit * Reason Onset Date Comments Surgery Scheduling 02/23/2015 Pre Authorization 02/23/2015 Encounter Details Date Type Department Care Team (Late st Contact Info) Description 02/23/2015 Telephone [facility] Pediatrics - Plastic Surgery Division of Plastic Surgery [address] [place] [id number] Dandy Guzmán MD Need updated address Surgery Scheduling; Pre Authorization Social History Tobacco Use Types Packs/Day Years Used Date Smoking Tobacco: Never Assessed Sex and Gender Information Value Date Recorded Sex Assigned at Not on file Gender Identity Not on file Sexual Orientation Not on file documented as of this encounter Miscellaneous Notes * Telephone Encounter - Jeffrey Aguilera - 02/23/2015 2:53 PM CDT Александр Fabian in Pediatric Plastic Surgery spoke with Neel, mother of Jerrod, and scheduled outpatient surgery for Wednesday May 13, 2015 with Dandy Guzmán MD. I spoke with Bonnie at [facility] and she informed me that they do not require prior authorization for outpatient procedure(s): excision of right face lesion (01759); intermediate (84244) vs complex (61206) wound closure on 05/13/15 with in network provider Dandy Guzmán MD. Ref: [id number] DISHWASHER documented in this encounter Plan of Treatment Not on file documented as of this encounter Visit Diagnoses Not on filedocumented in this encounter Care Teams Search Strategist Relationship Specialty Start Date End Date Leticia Yoder MD PCP - General 08/14/14 documented as of this encounter
--- OUTSIDE RECORDS SUMMARY | 2024-05-29 23:32 | XMS_ITS | Clinical Summary ---
Author Organization [facility] Address [address] [place] [address] Phone Care Team Providers Care Manager Forensic Name Role Phone Leticia Yoder MD Primary Care Provider Allergies No known active allergies Medications ketorolac (TORADOL) 10 MG Tablet Take 1 Tablet by mouth every 6 hours as needed for Moderate or more severe pain. 20 Tablet 02/24/2023 Active metoclopramide (REGLAN) 10 MG Tablet Take 1 Tablet by mouth 4 times daily as needed for Nausea - 1st line. 10 Tablet 02/24/2023 Active Social History Tobacco Use Types Packs/Day Years Used Date Smoking Tobacco: Never Smokeless Tobacco: Never Alcohol Use Standard Drinks/Week Comments Never 0 (1 standard drink = 0.6 oz pur e alcohol) Comments No Sex and Gender Information Value Date Recorded Sex Assigned at Not on file Legal Sex Female 9:08 AM CDT Gender Identity Not on file Sexual Orientation Not on file Last Filed Vital Signs Vital Sign Reading Time Taken Comments Blood Pressure 90/56 02/24/2023 5:01 PM CDT Pulse 62 02/24/2023 8:40 PM CDT Temperature 37 ??C (98.6 ??F) 02/24/2023 8:40 PM CDT Respiratory Rate 2 02/24/2023 8:40 PM CDT Oxygen Saturation 100% 02/24/2023 8:40 PM CDT Inhaled Oxygen Concentration - - Weight 57.2 kg (126 lb) 02/24/2023 4:59 PM CDT Height 160 cm (5' 3 ) 02/24/2023 4:59 PM CDT Body Mass Index 22.32 02/24/2023 4:59 PM CDT Body Mass Index Percentile 60.92% 02/24/2023 4:5 9 PM CDT Growth Chart: [facility] (Girls, 2- 20 Years) Plan of Treatment Health Maintenance Due Date Last Done Comments Hepatitis C Virus (HCV) Screening 2004 Meningococcal B Immunization (1 of 2 - Patient Seeks Protection) 2020 Influenza Immunization (#1) 02/11/202402/10, 09/12/2018, 05/23/2007 SARS-COV-2 Immunization ( - 2023- season) 2024 Respiratory Syncytial Virus (RSV) Immunization (Adult) (1 - 1-dose 75+ series) 10/07/2079 Hepatitis B Immunization Completed 005, 02/08/2005, 2004, Additional history exists Pneumococcal Immunization Combined Aged Out 10/25/2006, 04/07/2005, 02/08/2005, Additional history exists No longer eligible based on patient's age to complete this topic Measles Mumps Rubella (MMR) Immunization Discontinued 10/02/2009, 10/25/2006 Polio (IPV) Immunization Discontinued 010, 04/07/2005, 02/08/2005, Additional history exists Varicella Immunization Discontinued 10/02/2009, 2006 DTaP/Tdap/Td Immunization Discontinued 2015, 10/02/2009, 10/25/2006, Additional history exists Hepatitis A Immunization Discontinued 10/14/2015, 01/2009 Meningococcal Immunization (ACWY) Aged Out 10/14/2015 No longer eligible based on patient's age to complete this topic TdaP Immunization Completed 10/14/2015 Human Papillomavirus (HPV) Immunization Completed 06/16/2016, 02/12/2016, 10/14/2015 Rotavirus Immunization Aged Out No lo nger eligible based on patient's age to complete this topic Insurance [facility] Care Teams Manager Forensic Relationship Specialty Start Date End Date Leticia Yoder MD [address] [place] [address] [address] [place] [address] PCP - General Pediatrics 03/09/21
--- OUTSIDE RECORDS SUMMARY | 2024-05-29 23:32 | XMS_ITS | Encounter Summary ---
Author Organization [facility] Address [address] [place] [address] Care Team Providers Care Song And Dance Performer Name Role Phone Leticia Yoder MD Primary Care Provider Reason for Visit * Auth/Cert Specialty Diagnoses / Procedures Referred By Aj guerrero Referred To Contact Diagnoses Benign neoplasm of skin of cheek, external Benign neoplasm of skin of cheek, external Procedures EXCISION NEVUS FACE/SCALP REPAIR, INTERMEDIATE, FACE/EARS/EYELIDS/NOSE/ LIPS 2.5CM < REPAIR, COMPLEX, FACE <=2.5CM Referral ID Status Reason Start Date Expiration Date Visits Re quested Visits Authorized [id number] 1 1 Encounter Details Date Type Department Care Team (Late st Contact Info) Description 06/29/2015 10:27 AM CUT [facility] - 06/29/2015 2:12 PM [facility] Hospital Encounter [facility] [id number] [place] [address] Dandy Kaplan MD Need updated address Surgery General Discharge Disposition: Home or Self Care Social History Tobacco Use Types Packs/Day Years Used Date Smoking Tobacco: Never Assessed Sex and Gender Information Value Date Recorded Sex Assigned at Not on file Gender Identity Not on file Sexual Orientation Not on file documented as of this encounter Last Filed Vital Signs Vital Sign Reading Time Taken Comments Blood Pressure 106/62 06/29/2015 1:45 PM [facility] Pulse 98 06/29/2015 2:00 PM [facility] Temperature 36.8 ??C (98.2 ??F) 06/29/2015 1:35 PM CS T Respiratory Rate 18 06/29/2015 2:00 PM [facility] Oxygen Saturation 100% 06/29/2015 2:00 PM [facility] Inhaled Oxygen Concentration - - Weight 41.2 kg (90 lb 13.3 oz) 06/29/19 16 10:40 AM [facility] Height 151.1 cm (4' 11.49 ) 06/29/2015 10:40 AM [facility] Body Mass Index 18.05 06/29/2015 10:40 AM [facility] Body Mass Index Percentile 61.63% 06/29 10:40 AM CUT [facility] Growth Chart: [facility] (Girls, 2- 20 Years) documented in this [...] 06/29/2015 documented as of this encounter Discharge Summaries * Chacho Blue MD - 06/29/2015 1:34 PM CST Physician Discharge Summary Patient Name: Majo Harris Date of : 2005 Admit date: 06/29/2015 Discharge date: 06/29/2015 Admitting Physician: Dandy Kaplan MD Attending Physician: Dandy Kaplan MD Discharge Physician: Admission Diagnosis: right cheek mass Past Medical History Past Medical History Diagnosis Date ??? Pyogenic granuloma 08/26/2014 right cheek lesion Resolved Diagnoses None found. Discharge Diagnoses None found. Diagnostic Studies See hospital course Treatments See hospital course Procedures See hospital course Consults None Hospital Course Majo Harris arrived at [facility] and was taken to the operating room 06/29/2015 for excision of right cheek mass, likely pyogenic granuloma. Majo Harris tolerated the procedure well andwas discharged POD0. Condition at discharge: stable Disposition: Home Code Status At Discharge Full Code Patient Instructions Discharge Medication List START taking these medications Instructions Authorizing Provider hydrocodone-acetaminophen 7.5-325 MG/15ML solution Take 8 mL by mouth every 4 hours as needed for Pain Chacho Blue Discharge Procedure Orders Why you were hospitalized Order Specific Question Answer Comments Your discharge diagnosis is Cheek mass [782971] No special diet needed Resume normal home diet as tolerated. Additional Activity instructions Bacitracin or similar ointment to the incision 3-4 times daily for 5 days. Keep head of bed elevated to reduce swelling. Avoid heavy lifting or strenuous activity for 2 weeks. Follow up with provider Order Specific Question Answer Comments Follow Up Instructions: Make and keep appt to see Dr. Kaplan in about 2 weeks. [facility] documented in this encounter Medications at Time of Discharge Medication Sig Dispensed Refills Start Date End Date hydrocodone-acetaminophen 7.5-325 MG/15ML solution Take 8 mL by mouth every 4 hours as needed for Pain 80 mL 0 06/29/2015 02/20/2018 documented as of this encounter H&P Notes * Chacho Blue MD - 06/29/2015 12:07 PM CST PLASTIC SURGERY PREOP H&P 06/29/2015 12:08 PM HISTORY OF PRESENT ILLNESS Majo Harris is 9 y.o. female here for excision of right cheek lesion. Plastic Surgery History ?? 08/26/14: Plastic surgery clinic visit regarding right cheek lesion PAST MEDICAL AND SURGICAL HISTORY No significant previous medical or surgical history. No Known Allergies ?? No current outpatient prescriptions on file. ?? FAMILY HISTORY Family history was reviewed and did not contain significant diseases that affected the current chief complaint. SOCIAL HISTORY Has a family household. Primary language is Romanian. REVIEW OF SYSTEMS Constitutional: no fevers, chills Craniomaxillofacial: as above Ophthalmologic: no complaints Otolaryngologic: no complaints Cardiovascular: no complaints Respiratory: no complaints Gastrointestinal: no complaints Genitourinary: no complaints Musculoskeletal: no complaints Neurologic: no complaints Psychiatric: no complaints Dermatologic: as above PHYSICAL EXAM BP 114/61 mmHg Pulse 72 Temp(Src) 98.8 ??F Resp 24 Wt 41.2 kg (90 lb 13.3 oz) BMI 18.05 kg/m2 General: alert, interactive, no acute distress Head and Face: R cheek with approximately 5 mm pedunculated lesion without sign of infection, bleeding, drainage; no surrounding skin changes or sign of trauma Eyes: pupils equally round and move synchronously Inner Ear, Inner Nose, Inner Throat: moist mucous membranes COR: normal pulses Chest: normal breathing with symmetric chest movements Abdomen: soft, non-tender Extremities: no clubbing, cyanosis, or edema Neurologic: upper and lower body strength normal and symmetric Psychiatric: attitude and behavior appropriate for age Skin: no other significant rashes, macules, or papules ASSESSMENT AND PLAN 9yoF with right cheek lesion, likely pyogenic granuloma by exam. This lesion is at risk for bleeding. -OR today for excision [facility] documented in this encounter Nursing Notes * Therese Zayas RN - 05/05/2015 11:07 AM CST Neel, mom, wants to cancel the surgery scheduled with Dr. Kaplan, as she cannot get off work on 05/13. She stated that she had left 2 previous messages and has not had a return call. i transferred her to[facility] ([phone]) for rescheduling. [facility] documented in this encounter OR Notes * Operative - Dandy Kaplan MD - 06/29/2015 5:56 PM CST [address] [address] [phone] OPERATIVE REPORT NAME: MAJO HARRIS : 2005 UNIT #: [id number] CSN #: [id number] DATE OF OPERATION: 06/29/2015 ATTENDING SURGEON: DANDY KAPLAN MD PREOPERATIVE DIAGNOSIS: Right face lesion. POSTOPERATIVE DIAGNOSIS: Right face lesion. PROCEDURES PERFORMED: 1. Excision of right face lesion, 5 mm. 2. Intermediate layered closure of right face lesion, 5 mm. ELECTRIC METER REPAIRER APPRENTICE SURGEON: Chacho Blue MD. ANESTHESIA: General plus local. ESTIMATED BLOOD LOSS: 0.5 mL. INDICATIONS FOR PROCEDURE: This is a 9-year-old girl who has had a slowly growing right face lesion since the end of 2013. This was thought to be likely a pyogenic granuloma but it has since healed through. Family understandsthe risks, benefits, alternatives, and consequences. All questions were answered. They gave informed consent and wished to proceed. DESCRIPTION OF PROCEDURE: The patient was brought to the operating room and placed in supine position. All pressure points were padded. After general anesthesia was induced, she received cefazolin for perioperative antibioticprophylaxis. The face was cleaned and the base of the lesion was marked with a 1-mm margin, infiltrated with 0.25% Marcaine and 1:200,00 epinephrine for hemostasis and pain control. Her face was thenprepped and draped in standard surgical fashion. A #15 was used to excise the 1-mm margin around the base of the lesion. This was passed off as a specimen. The wound was copiously irrigated. Skin and subcutaneous flaps were elevated using curved iris scissors. Hemostasis was achieved with electrocautery. The wound was copiously irrigated. An intermediate layered closure was performed with deep sutures of 6-0 Monocryl. A subcuticular 6-0 Monocryl was used. The skin was then closed with 6-0 fast gut in a running fashion. Sponge and needle counts were correct at the end of the case. A final layer of antibiotic ointment was applied. The patient awoken slowly without problems and taken to Postanesthesia Recovery in goodcondition. SPECIMENS: Right cheek lesion. IMPLANTS: None. DRAINS: None. COMPLICATIONS: None apparent. Dictated By: DANDY KAPLAN MD [place]/Med JOB ID: [id number] OPERATIVE REPORT [facility] * Brief Op Note - Chacho Blue MD - 06/29/2015 1:29 PM CST Brief Post-Operative Note 06/29/2015 Majo Harris Date of Surgery: 06/29/2015 Surgeon(s) and Role: * Dandy Kaplan MD - Primary * Chacho Blue MD - Resident - Assisting Anesthesiologist: Jaren Gould MD Family Protection Specialist: Nicholson, Jamie, DO Pre-Op Diagnosis Codes: * Benign neoplasm of skin of cheek, external [D23.39] Postoperative Diagnosis: right cheek mass Procedure(s) and Anesthesia Type: * EXCISION RIGHT FACE LESION, 7 mm - General * INTERMEDIATE WOUND CLOSURE RIGHT CHEEK, 5 mm - General Findings: As expected Disposition: PACU, Home Status: Stable Drains: none Pack: none Complications: none EBL: minimal Specimen(s): ID Type Source Tests Collected by Time Destination A : Right cheek lesion Path Cheek Lesion GROSS + MICRO EXAM (STL) Dandy Kaplan MD 06/29/2015 1308 Implant(s): * No implants in log * Case Length: 50 Min OFF [facility] documented in this encounter Plan of Treatment Not on file documented as of this encounter Procedures Procedure Name Priority Date/Time Associated Diagnosis Comments PATHOLOGY TISSUE EXAM (STL) STAT 06/29/2015 1:08 PM CUT [facility] Benign neoplasm of skin of cheek, external REPAIR, INTERMEDIATE, FACE/EARS/EYELIDS/N OSE/ LIPS 2.5CM < 06/29/2015 12:34 PM CUT [facility] Benign neoplasm of skin of cheek, external EXCISION NEVUS FACE/SCALP 06/29/2015 12:34 PM CUT [facility] Benign neoplasm of skin of cheek, external documented in this encounter Results * GROSS + MICRO EXAM (STL) (06/29/2015 1:08 PM CUT [facility]) Case Report Surgical Pathology Report ? Case: [id number] ? Authorizing Provider: ??Dandy Kaplan MD ?Collected: ? 06/29/2015 01:08 PM ? Ordering Location: ? [facility] ? Received: ?06/29/2015 02:03 PM ? Pathologist: ? Gretchen Blankenship MD ? Specimen: ?Cheek Lesion, Right cheek lesion ? 07/02/2015 1:13 PM [facility] Final Diagnosis SKIN, RIGHT CHEEK LESION, EXCISION: - EPIDERMAL INCLUSION CYST - PYOGENIC GRANULOMA 07/02/2015 1:13 PM [facility] Clinical History The patient is a 9-year-old girl who underwent excision of a right cheek lesion; likely pyogenic granuloma, by exam. 07/02/2015 1:13 PM [facility] Gross Description Submitted fresh in one container for gross and microscopic examination labeled with the patient's name, Majo Harris, and right cheek lesion, is 0.6 x 0.4 cm polypoid fragment of sesay-carrington skin with subcutaneous tissue excised to a depth of 0.2 cm. The surgical resection margin is painted with taran ink. The specimen is bisected, and entirely submitted in cassette A1. (/luis angel) 07/02/2015 1:13 PM [facility] Microscopic Description A) 1 H&E [...] regressing pyogenic granuloma. ??(NW/cayden) 07/02/2015 1:13 PM [facility] Pathology/Cytolo gy INCISIONAL BIOPSY OF LESION OF CHEEK / Unknown 06/29/2015 1:08 PM CUT [facility] 06/29/2015 2:03 PM CUT [facility] Dandy Kaplan MD LAB - PATHOLOGY/CYTO LOGY ORDERABLES [facility] [place] [address] documented in this encounter Visit Diagnoses Diagnosis Benign neoplasm of skin of cheek, external Benign neoplasm of skin of other and unspecified parts of face documented in this encounter Administered Medications Inactive Administered Medications - up to 3 most recent administrations Medication Order MAR Action Action Date Dose Rate Site midazolam (VERSED) solution 10 mg 10 mg (0.243 mg/kg), Oral, PRE-OP ONCE, 1 dose, On Mon06/29/15 at 1103 $ Given 06/29/2015 11:55 AM CUT [facility] 10 mg documented in this encounter Active and Recently Administered Medications Times are shown in CUT [facility]. Scheduled Medication Order 06/27/2015 06/28/2015 06/29/2015 midazolam (VERSED) solution 10 mg (COMPLETED) 10 mg (0.243 mg/kg), Oral, PRE-OP ONCE, 1 dose, On Mon06/29/15 at 1103 1155 ($ Given - Prov ider: Carleen Snow, KEVIN) PRN Medication Order 06/27/2015 06/28/2015 06/29/2015 bupivacaine 0.25% - epinephrine 1:200,000 (PF) injection (CANCELED) PRN, Starting on Mon06/29/15 at 1300, Until Mon06/29/15 at 1345, Intra-op 1300 ($ Given - Prov ider: Dandy Kaplan MD)1325 ($ Given - Provider: Dandy Kaplan MD) documented in this encounter Care Teams Song And Dance Performer Relationship Specialty Start Date End Date Leticia Yoder MD PCP - General 08/14/14 documented as of this encounter
--- OUTSIDE RECORDS SUMMARY | 2024-05-29 23:32 | XMS_ITS | Encounter Summary ---
Author Organization [facility] Address [address] [facility] [place] [address] Care Team Providers Care Cartoonist Special Effects Name Role Phone Leticia Yoder MD Primary Care Provider Myesha Steward PA-C Unavailable Reason for Visit * Reason Comments Injury Shoulder follow up right shou lder Encounter Details Date Type Department Care Team (Latest Contact Info) Description 03/13/2019 9:00 AM CDT - 03/13/2019 11:59 PM CDT Hospital Encounter [facility] Pediatrics - Orthopedics [address] [place] [address] Myesha Steward PA-C [address] [place] [address] Discharge Disposition: Home or Self Care Social [...] - Inhaled Oxygen Concentration - - Weight 62.8 kg (138 lb 7.2 oz) 03/13/2019 9:13 A M CDT Height - - Body Mass Index - [...] this encounter Discharge Instructions * Patient Instructions* Myesha Steward PA-C - 03/13/2019 9:20 AM CDT Images from the original note were not included. Adult and Pediatric Orthopaedic Surgery Sports Medicine [email or web address] ORTHOPAEDIC CLINIC DISCHARGE INSTRUCTIONS SHEET Jerrod Harris 03/13/2019 Thank you for coming in to see us today. Work/School Excuse: Excused from School on 03/13/2019 DIAGNOSIS: right shoulder dislocation Plan: We recommend that you try the following for your injury: icing 20 minutes at a time, 3 to 5 times daily, physical therapy exercises and anti-inflammatory medications limited activity until 3 weeks. Special Instructions: no tumbling, no overhead lifting, no stuntingx 3 weeks. Follow up: as needed if not better Call or return to clinic prn if these symptoms worsen or fail to improve as anticipated. NSAIDs (non-steroidal anti-inflammatory drugs) such as Aleve/naproxen and Motrin/ibuprofen are suggested to relieve inflammation and pain for a short course of therapy for 3 weeks, advised to take with food. Cryotherapy is commonly used to reduce temperature, inflammation, pain, muscle spasm and symptoms of delayed onset muscle soreness. There are various methods of ice application such as ice pack, coldpack, cold water immersion, ice massage. To Find out more info about your diagnosis, visit: [email or web address].[email or web address]/ Patient was educated and given information regarding their diagnosis today. [facility] Orthopaedic office contact information: To Leave a Non-Urgent message, please call: To make an appointment, please call: , option 2 Locations: EVIE Smith , option 2 [place] location: [address], [place] [address] [facility] location: [address], [place] [address] [facility] [address], [address], [place] [address] Please contact the MA at , if you have any further questions or concerns. [facility] [address] [place] [address] Please contact Jose Carlos Contreras RN at , if you have any further questions or concerns. Sincerely, Myesha Steward MPA, PA-C [email or web address] documented in this encounter Progress Notes * Myesha Steward PA-C - 03/13/2019 9:[address] Leticia Yoder MD ; Today, 03/13/19, we had the pleasure of seeing Jerrod Harris at [facility] for re-evaluation of her right shoulder chief complaint. Jerrod Harris is a 13 year old female who returns for f/u R shoulder dislocation, doing better withPT and limited activity. DOI 02/01/19 R shoulder dislocation. She has mild pain with external rotation in PT but no instability. She has 3 more weeks of PT. Previous treatment tried includes icing, physical therapy exercises, anti- inflammatory medications,tylenol and sling for their symptoms. Sports/Activities: cheer Smoking/tobacco use: not done Single Assessment Numeric Evaluation (SANE Score 0-100): SANE Score 02/20/2019 03/13/2019 Right Shoulder Score 65 75 Medications: No current outpatient medications on file prior to encounter. No current facility-administered medications on file prior to encounter. Allergies: Allergies as of 03/13/2019 ??? (No Known Allergies) PMH: Past Medical History: Diagnosis Date ??? Headache ??? Pyogenic granuloma 08/26/2014 right cheek lesion Past Surgical History: Procedure Laterality Date ??? EXCISION/DESTRUCTION TISSUE/LESION Right 06/29/2015 Right; EXCISION RIGHT FACE LESION ??? PLASTIC SURGERY PROCEDURE Right 06/29/2015 Right; INTERMEDIATE WOUND CLOSURE Social History: Social History Tobacco Use ??? Smoking status: Not on file Substance and Sexual Activity ??? Alcohol use: Not on file ??? Drug use: Not on file ??? Sexual activity: Not on file Family History: Family History Problem Relation Age of Onset ??? Arthritis - Rheumatoid Neg Hx ??? Lupus Neg Hx ??? Thyroid Disease Neg Hx ??? Crohn's Disease Neg Hx ??? Ulcerative Colitis Neg Hx ??? Psoriasis Neg Hx ??? Sjogren's Syndrome Neg Hx ??? Celiac Disease Neg Hx REVIEW OF SYSTEMS: also refer to HPI General/Constitutional: No fever, chills, night sweats, insomnia, appetite changes, or weight changes Endocrine: no thyroid problems, no diabetes Cardiovascular: No exertional chest pain, or palpitations Respiratory/Pulmonary: No cough, dyspnea, wheezing or SOB. Genitourinary: No frequency, incontinence, burning with urination Gynecological: No pelvic pain or discharge Psychiatric: No depression, anxiety, mood changes HEENT: No difficulty with hearing, eye sight, sore throats, vertigo, or tinnitus Gastrointestinal: no GI upset, No nausea, vomiting or diarrhea Skin: No skin rashes, skin lesions Neurologic: no numbness and tingling, No dizziness or visual disturbances Musculoskeletal: + joint pain or stiffness, no muscle aches, no leg cramping Physical Exam: There is no height or weight on file to calculate BMI. Vitals: 03/13/19 0913 Weight: 138 lb 7.2 oz (38710 g) Awake, alert and oriented. Gait is normal. No cervical spine tenderness and full neck range of motion in all 6 directions. No step off or deformity noted. Evaluation of the uninjured left shoulder noted no skin lesions, neurovascularly intact. There was no tenderness/swelling/deformity. Ligamentously stable glenohumeral joint. Good active and passive range of motion. 5/5 strength in elevation. The right shoulder is neurovascularly intact with no active skin lesions. There is no scapular winging. There is no tenderness of the rotator cuff insertion, long head biceps and proximal humerus. There is restricted passive range of motion (180 deg elevation). There is restricted active range of motion (180 deg elevation). Strength for elevation in the scapular plane is 5/5. There is not a sulcus sign. There is no generalized ligamentous laxity. Anterior apprehension is negative. Relocation test is negative. Posterior apprehension is negativel. Toston's test is positive. Shoulder impingement test is negative Imaging: R shoulder X-rays images demonstrate glenohumeral joint in good alignment with no fractures. CD images revealed post reduction of anterior dislocation. Images were personally interpreted and re-reviewed by me today in clinic. Impression: R shoulder Dislocation, improving ?? Plan: We recommend that you try the following for your injury: icing 20 minutes at a time, 3 to 5 times daily, physical therapy exercises and anti-inflammatory medications ?? Activity Restrictions: no tumbling or stunting x 3 weeks? Follow up: as needed, if not better in 6 weeks. ?? Patient was educated and given information regarding their diagnosis today. Please do not hesitate to contact me with questions regarding her or any other patient in the future. Sincerely, Myesha Steward MPA, PA-C documented in this encounter Plan of Treatment Not on file documented as of this encounter Visit Diagnoses Diagnosis Dislocation of right shoulder joint, initial encounter- Primary documented in this encounter Care Teams Cartoonist Special Effects Relationship Specialty Start Date End Date Leticia Yoder MD PCP - General 08/14/14 Myesha Steward PA-C [address] [address] Physician Filling Station Laborer 02/20/19 documented as of this encounter
--- OUTSIDE RECORDS SUMMARY | 2024-05-29 23:32 | XMS_ITS | Encounter Summary ---
Author Organization [facility] Address [address] [facility] [place] [address] Care Team Providers Care Civil Engineering Professor Name Role Phone Leticia Yoder MD Primary [...] Expiration Date Visits Re quested Visits Authorized [id number] 1 1 Encounter Details Date Type Department Care Team (Late st Contact Info) Description 06/29/2015 12:43 PM CERTIFIED INDOOR ENVIRONMENTALIST Anesthesia Event [facility] - Periop [address] [facility] [place] [address] Jaren Gould MD [address] [place] [id number] Jamie Nicholson DO Anesthesia Record Procedure Summary Procedure Name Responsible Anesthesiologist Anesthesia Start Time Anesthesia Stop Time EXCISION RIGHT FACE LESION (Right: Face) Jaren Gould MD 06/29/15 1243 06/29/15 1338 Events Date Time Event Comment 06/29/2015 1243 An Start 1243 An Start Data 1246 PT Reassessment Patient and Vital Signs reassessed prior to induction. 1246 An Induction 1255 An Intubation 1324 An Emergence 1331 Extubation 1332 an stop data 1335 1335 Elect Sign The providers l isted as staff are the responsible providers for the case. 1338 Handoff Handoff include d discussion of Intraoperative anesthetic management, issues, concerns and expectations/plans for the early post-procedure period. There was an opportunity for questions and the receiving team acknowledged understanding of the handoff. 1338 An Stop Meds Name Total ceFAZolin (ANCEF) 1 g injection 1 g ondansetron (ZOFRAN) 2mg/ml injection 4 mg isolyte-S pH 7.4 bolus 200 mL * Agents Name Insp. N2O Exp. Sevoflurane Insp. Sevoflurane * Blood No blood administrations on file. Lines, Drains, and Airways Type Details Placement Removal Peripheral IV Date: 06/29/15; Time : 1251; Orientation: Left; Placed By: Dr. Gould 06/29/15 1251 by Jamie Nicholson DO 06/29/15 1411 by Susu Birch RN LMA 06/29/15; 1255; Pola Nicholson; Inhalation; easy mask; LMA; 3.0; Bilateral breath sounds, Chest Auscultation, CO2 Detector; 06/29/15; 1331 06/29/15 1255 by Jamie Nicholson DO 06/29/15 1331 by Jamie Nicholson DO RETIRED Procedural Site 06/29/15; 1306; Right; Face; 06/29/15; 201106/29/15 1306 by Lara Gatica RN 06/29/152011 by Generic, Auto Release documented in this encounter Social History Tobacco Use Types Packs/Day Years Used Date Smoking Tobacco: Never Assessed AUDIT-C Answer Date Recorded Q1: How often [...] COVID-19? No / Unsure 05/04/2020 9:38 AM CERTIFIED INDOOR ENVIRONMENTALIST documented as of this encounter Progress Notes * Jaren Gould MD - 06/29/2015 3:23 PM CST ANESTHESIA POSTPROCEDURE EVALUATION Jerrod Harris is a 9 y.o. female Temp: 36.8 ??C Pulse: 98 Resp: 18 BP: 106/62 mmHg SpO2: 100 % Pain Rating Score #1: 0 Anesthesia Type: general Mental status: neurologic status has returned to preoperative level. Level of consciousness: awake General appearance: well-appearing Respiratory function: natural airway. Cardiac: stable Pain: comfortable/acceptable PONV: None Postop hydration: adequate. Patient may be released from anesthesia care. Perioperative Complications: No value filed. ASA/AQI Tracking Events: No value filed. IFIED INDOOR ENVIRONMENTALIST documented in this encounter Consult Notes * Margarita Garcia APRN-CRNA - 06/29/2015 11:04 AM CST Pre-anesthesia Evaluation Procedure(s): EXCISION RIGHT FACE LESION (Right Face) INTERMEDIATE WOUND CLOSURE (Right Face) VERSUS COMPLEX WOUND CLOSURE (Right Face) 9 y o with Right cheek lesion presents for excision. Negative past medical history. Versed orderedpreoperatively. Vital Signs: Temp: 37.1 ??C (06/29 1040) BMI: Estimated body mass index is 18.05 kg/(m^2) as calculated from the following: Height as of this encounter: 1.511 m (4' 11.49 ). Weight as of this encounter: 41.2 kg (90 lb 13.3 oz). History: Past Medical History Diagnosis Date ??? Pyogenic granuloma 08/26/2014 right cheek lesion Past Surgical History Procedure Laterality Date ??? Negative surgical history Allergies: has No Known Allergies. Medications: Home Medications for Outpatients: No current outpatient prescriptions on file. Home Medications for Inpatients: No prescriptions prior to admission Inpatient Medications: Current Facility-Administered Medications Medication Dose Route Frequency Provider Last Rate Last Dose ??? midazolam (VERSED) solution 10 mg 10 mg Oral pre-OP once Margarita Garcia APRN-CRNA Physical Exam: NPO status: no solids since midnight Oriented to person, place and time (Nervous) Airway: I Neck ROM: full Dental exam findings: normal/ok Pulmonary exam: breath sounds CTA Heart sounds: S1 S2 Plan for Anesthesia: ASA Score: 1. Anesthesia plan: general Planned method of induction: inhalational (strawberry) Planned postop destination: PACU Planned administration of opioids for postop analgesia Anesthesia plan, risks and benefits discussed with mother and father Anesthesia consent: obtained Plan accepted yes IFIED INDOOR ENVIRONMENTALIST Associated attestation - Jaren Gould MD - 06/29/2015 1:35 PM CERTIFIED INDOOR ENVIRONMENTALIST I saw evaluated and examined the patient including Heart, Lungs and Airway. I agree with the assessment and plan. documented in this encounter Plan of Treatment Not on file documented as of this encounter Visit Diagnoses Not on filedocumented in this encounter Administered Medications Inactive Administered Medications - up to 3 most recent administrations Medication Order MAR Action Action Date Dose Rate Site ceFAZolin (ANCEF) injection PRN, Starting on Mon06/29/15 at 1259, Until Mon06/29/15 at 1338, Anesthesia Intra-op $ Given 06/29/2015 12:59 PM CERTIFIED INDOOR ENVIRONMENTALIST 1 g isolyte-S pH 7.4 IV BOLUS Administer over 30 Minutes, CONTINUOUS PRN, Starting on Mon06/29/15 at 1251, Until Mon06/29/15 at 1338 $ New Bag/Syringe 06/29/2015 12:51 PM CERTIFIED INDOOR ENVIRONMENTALIST ondansetron (ZOFRAN) injection PRN, Nausea/Vomiting, Starting on Mon06/29/15 at 1303, Until Mon06/29/15 at 1338, Anesthesia Intra-op $ Given 06/29/2015 1:03 PM CERTIFIED INDOOR ENVIRONMENTALIST 4 mg documented in this encounter Care Teams Civil Engineering Professor Relationship Specialty Start Date End Date Leticia Yoder MD PCP - General 08/14/14 documented as of this encounter
--- OUTSIDE RECORDS SUMMARY | 2024-05-29 23:32 | XMS_ITS | Encounter Summary ---
Author Organization [facility] Address [address] [place] [address] Care Team Providers Care Family Dinner Service Specialist Name Role Phone Leticia Yoder MD Primary Care Provider Reason for Visit * Reason Comments Pain Joint Follow-up-- pt feels nothing has changed Encounter Details Date Type Department Care Team (Latest Contact Info) Description 03/20/2018 2:13 PM CDT - 03/20/2018 11:59 PM CDT Hospital Encounter [facility] Pediatrics - Rheumatology [address] [place] [address] [place] [address] Marc Reza, [address] [place] [address] Discharge Disposition: Home or Self Care Social History Tobacco Use Types Packs/Day Years Used Date Smoking Tobacco: Never Assessed Sex and Gender Information Value Date Recorded Sex Assigned at Not on file Gender Identity Not on file Sexual Orientation Not on file documented as of this encounter Last Filed Vital Signs Vital Sign Reading Time Taken Comments Blood Pressure 120/70 03/20/2018 2:14 PM CDT Pulse 68 03/20/2018 2:14 PM CDT Temperature - - Respiratory Rate 20 03/20/2018 2:14 PM CDT Oxygen Saturation - - Inhaled Oxygen Concentration - - Weight 56.9 kg (125 lb 7.1 oz) 03/20/2018 2:14 P M CDT Height 162.6 cm (5' 4 ) 03/20/2018 2:14 PM CDT Body Mass Index 21.53 03/20/2018 2:14 PM CDT Body Mass Index Percentile 76.91% 03/20/2018 2:1 4 PM CDT Growth Chart: CDC (Girls, 2- 20 Years) documented in this [...] this encounter Discharge Instructions * Patient Instructions* Marc Reza DO - 03/20/2018 2:43 PM CDT Naproxen twice daily with meals Only Tylenol in addition Muscle strengthening exercises - biking, swimming, squats, wall-squats, lunges Wrists: can curls Inner quads - squeeze basketball or volleyball Physical therapy as ordered MUST DO HOME EXERCISES DAILY See you back in 8 weeks You may reach Dr[address] Reza at [phone] extension [phone] Scheduling [phone] After-hours EMERGENCIES [phone] - ask for the on-call rheumatology fellow documented in this encounter Medications at Time of Discharge Medication Sig Dispensed Refills Start Date End Date naproxen (NAPROSYN) 500 MG tabletIndications:Arthra lgia, unspecified joint Take 1 tablet by mouth 2 times daily with morning and evening meal 60 tablet 3 02/20/2018 03/13/2019 documented as of this encounter Progress Notes * Marc Reza DO - 03/20/2018 4:02 PM CDT Images from the original note were not included. Division of Adult & Pediatric Rheumatology Attending Physician: Marc Reza DO Office ext 118 for patients seen at [facility] for patients seen at [facility] Follow-up Visit 03/20/2018 Diagnosis/Problem(s): overuse arthralgia, patellar tracking, +SNEHA PCP: Leticia Yoder MD Interval History: MAJO HARRIS ( 2005) is a 12 y.o. female here for follow up of the above problems. History obtained from parent(s), patient, and review of prior medical records. Since last visit (02/20/18) she has been worse. She has not done any muscle strengthening exercise as instructed at last visit. They did not call me to start physical therapy. She complains of worsening wrist pain. It is both more frequent and severe. She is unsure about any swelling. Only 5 min of morning stiffness. She has not had any knee pain since last visit. She is taking naproxen most of the time. She denies that it is helping, but agrees that she feels worse with missed doses. No new symptoms or concerns today otherwise. 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 Review of Systems: General: -fatigue, -fever, -wt loss, daily functioning not limited HEENT: -dry eyes, -dry mouth, -eye redness, -eye pain, -oral/nasal ulcers CV: -chest pain Resp: -cough, -SOB GI: -abd pain, -constipation, -nausea, -vomiting, -diarrhea, -blood/mucus : -urine changes, -dysuria, -hematuria MSK: +arthralgia, -myalgia, -swelling, -erythema, -warmth, -AM stiffness, -back pain Skin: -rash, -lesions, -hair loss, -Raynaud Neuro: -MCDANIELS, -vision changes, -muscle weakness, -paresthesias Psych: -depression, -anxiety ROS otherwise negative Current Medications: Current Outpatient Prescriptions Medication Sig Dispense Refill ??? naproxen (NAPROSYN) 500 MG tablet Take 1 tablet by mouth 2 times daily with morning and eveningmeal 60 tablet 3 No current facility-administered medications for this encounter. Physical Exam: BP 120/70 Pulse 68 Resp 20 Ht 1.626 m (5' 4 ) Wt 56.9 kg (125 lb 7.1 oz) BMI 21.53 kg/m2 General: no distress, cooperative Skin: no rash or lesions, no color change or livedo reticularis, normal temperature & turgor HEENT: conjunctivae and sclerae clear, PERRLA, EOMI, external ear normal, no oral or nasal ulceration, mucus membranes moist Neck: supple, normal ROM, no LAD Back: symmetric, no curvature, normal ROM, no paraspinal tenderness, no SI tenderness Chest/Lungs: lungs CTAB, no wheezes, rhonchi, or rales Heart: RRR, no murmur, no rub or gallop Abdomen: soft, non-tender, non-distended Neurologic: grossly intact, alert Musculoskeletal Exam: No synovitis FROM Lab/Diagnostics: 03/06 XR knee & wrists neg ([facility]), sent for scan 03/05/2018 CRP negative ESR 2 UA negative TSH normal TTG negative Immunoglobulins normal RF, CCP, HLA B27 negative SNEHA profile negative Complements normal January, CBC normal CRP negative Vitamin-D 37 RF negative SNEHA 1:160, homogeneous Assessment/Plan: MAJO HARRIS is a 12 y.o. female with: 1. 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 Positive SNEHA with negative SNEHA profile and no signs or symptoms to suggest autoimmune disease otherwise 1. Labs: None 2. Radiology: None 3. Medications: Continue naproxen twice daily with meals. 4. Other: Referred to physical therapy for muscle strengthening and home exercise program. Must do home exercises if she expects to improve. 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 5. RTC in 8 weeks Marc Reza DO, FAAP, FACR [employer] Administrator of Internal Medicine & Pediatrics Division of Adult & Pediatric Rheumatology [facility] [employer] [facility] Orders Placed This Encounter ??? [facility] referral to Physical Therapy documented in this encounter Plan of Treatment Not on file documented as of this encounter Visit Diagnoses Diagnosis Arthralgia, unspecified joint- Primary Patellar tracking disorder, unspecified laterality Overuse injury Unspecified site of sprain and strain SNEHA positive Other and unspecified nonspecific immunological findings Non-adherence to medical treatment Crepitant synovitis of wrist, unspecified laterality Arthralgia of wrist, unspecified laterality documented in this encounter Care Teams Family Dinner Service Specialist Relationship Specialty Start Date End Date Leticia Yoder MD PCP - General 08/14/14 documented as of this encounter
--- OUTSIDE RECORDS SUMMARY | 2024-05-29 23:32 | XMS_ITS | Encounter Summary ---
Author Organization [facility] Address [address] [place] [address] Care Team Providers Care Customs Collector Name Role Phone Leticia Yoder MD Primary Care Provider Myesha Steward PA-C Unavailable [phone] Encounter Details Date Type Department Care Team (Latest Contact Info) Description 02/20/2019 11:31 AM CDT - 02/20/2019 11:59 PM CDT Hospital Encounter [facility] Pediatrics - Radiology [address] [place] [address] Myesha Steward PA-C [address] [place] [id number] Discharge Disposition: Home or Self Care Social [...] No 06/29/2015 documented as of this encounter Medications at Time of Discharge Medication Sig Dispensed Refills Start Date End Date naproxen (NAPROSYN) 500 MG tabletIndications:Arthra lgia, unspecified joint Take 1 tablet by mouth 2 times daily with morning and evening meal 60 tablet 3 02/20/2018 03/13/2019 documented as of this encounter Plan of Treatment Not on file documented as of this encounter Procedures Procedure Name Priority Date/Time Associated Diagnosis Comments XR SHOULDER RIGHT 1VW Routine 02/20/2019 11:33 AM CDT Dislocation of right shoulder joint, initial encounter documented in this encounter Results * XR SHOULDER RIGHT 1VW (02/20/2019 11:33 AM CDT) Anatomical Region Laterality Modality Upper Extremity Radiographic Shena ging 02/20/2019 2:34 PM CDT Impressions 02/20/2019 2:38 PM CDT Normal axillary view of the right shoulder. Reading Radiologist: Armen Traylor MD on 02/20/2019 at 2:38 PM Narrative 02/20/2019 2:38 PM CDT XR SHOULDER RIGHT 1VW*[id number] 02/20/2019 11:31 AM INDICATION: Unspecified dislocation of right shoulder joint, initial encounter COMPARISON: None available at the time of dictation. TECHNIQUE: Single axillary view of the right shoulder. FINDINGS: The joints are appropriately aligned as viewed on this projection. There is no visible fracture. There are no stress changes. Procedure Note Armen Traylor MD - 02/20/2019 XR SHOULDER RIGHT 1VW*[id number] 02/20/2019 11:31 AM INDICATION: Unspecified dislocation of [...] Myesha Steward PA-C DIAGNOSTIC IMAGING O RDERABLES documented in this encounter Visit Diagnoses Diagnosis Dislocation of right shoulder joint, initial encounter Exposure to other specified factors, initial encounter documented in this encounter Care Teams Customs Collector Relationship Specialty Start Date End Date Leticia Yoder MD PCP - General 08/14/14 Myesha Steward PA-C [address] [address] Physician Cardboard Cutter 02/20/19 documented as of this encounter
--- OUTSIDE RECORDS SUMMARY | 2024-05-29 23:32 | XMS_ITS | Encounter Summary ---
Author Organization [facility] Address [address] [address] Care Team Providers Care Ammonia Worker Name Role Phone Leticia Yoder MD Primary Care Provider Reason for Visit * Reason Comments Establish Care pain of joints Encounter Details Date Type Department Care Team (Latest Contact Info) Description 02/20/2018 2:20 PM CDT - 02/20/2018 11:59 PM CDT Hospital Encounter [facility] Pediatrics - Rheumatology [address] [place] [address] [place] [address] Marc Reza [address] [phone] Discharge Disposition: Home or Self Care Social History Tobacco Use Types Packs/Day Years Used Date Smoking Tobacco: Never Assessed Sex and Gender Information Value Date Recorded Sex Assigned at Not on file Gender Identity Not on file Sexual Orientation Not on file documented as of this encounter Last Filed Vital Signs Vital Sign Reading Time Taken Comments Blood Pressure 108/60 02/20/2018 2:45 PM CDT Pulse 60 02/20/2018 2:45 PM CDT Temperature - - Respiratory Rate 16 02/20/2018 2:45 PM CDT Oxygen Saturation - - Inhaled Oxygen Concentration - - Weight 56.7 kg (125 lb) 02/20/2018 2:45 PM CDT Height 161 cm (5' 3.39 ) 02/20/2018 2:45 PM CDT Body Mass Index 21.87 02/20/2018 2:45 PM CDT Body Mass Index Percentile 79.63% 02/20/2018 2:4 5 PM CDT Growth Chart: [facility] (Girls, 2- 20 Years) documented in this [...] * Patient Instructions* Marc Reza DO - 02/20/2018 3:23 PM CDT Labs at [facility] - fasting 8 hours X-rays at [place] I will call you with any urgent issues, otherwise we will review the results next time Naproxen twice daily with meals Only Tylenol in addition Muscle strengthening exercises - biking, swimming, squats, wall-squats, lunges Wrists: can curls Inner quads - squeeze basketball or volleyball Call me if you want to do PT See you back in 4 [address] reach [address] Reza at [phone] extension [phone] Scheduling [phone] After-hours EMERGENCIES [phone] - ask for the on-call rheumatology fellow documented in this encounter Medications at Time of Discharge Medication Sig Dispensed Refills Start Date End Date naproxen (NAPROSYN) 500 MG tabletIndications:Arthra lgia, unspecified joint Take 1 tablet by mouth 2 times daily with morning and evening meal 60 tablet 3 02/20/2018 03/13/2019 documented as of this encounter H&P Notes * Marc Reza DO - 02/20/2018 11:59 PM CDT Images from the original note were not included. Division of Adult & Pediatric Rheumatology Attending Physician: Marc Reza DO Office ext [phone] for patients seen at [facility] for patients seen at [facility] New Patient Visit 02/20/2018 Referring Physician: Leticia Yoder MD [address] [place] [phone] Chief Complaint Patient presents with ??? Establish Care pain of joints History of Present Illness: MAJO HARRIS ( 2005) is a 12 y.o. female here for initial evaluation of joint pain. History obtained from parent(s), patient, and review of prior medical records. Wrist pain more than kneepain for the last year. Pain has been daily over the last 2 months but previously was less often. Went back to [facility] 2 months ago. Swelling daily in both wrists only since she went back to [facility] prior to resuming school. Unsure about knee swelling. Morning stiffness daily in wrists more the knees but for only 5 minutes. Ice and heat help. Aleve does not help much, taken b.i.d. some days, perhaps 3 days a week. Overall pain is worse with activity and better with rest. Review of Systems: General: +fatigue, -fever, -wt loss, daily functioning not limited HEENT: -dry eyes, -dry mouth, -eye redness, -eye pain, -oral/nasal ulcers CV: -chest pain Resp: -cough, -SOB GI: -abd pain, -constipation, -nausea, -vomiting, -diarrhea, -blood/mucus : -urine changes, -dysuria, -hematuria MSK: +arthralgia, -myalgia, +swelling, -erythema, -warmth, +AM stiffness, -back pain Skin: -rash, -lesions, -hair loss, -nail changes, -Raynaud, -photosensitivity, -acrocyanosis Neuro: +MCDANIELS (some karan), -vision changes, -muscle weakness, -paresthesias Psych: +depression, +anxiety ROS otherwise negative Past Medical/Surgical History: IUTD Past Medical History: Diagnosis Date ??? Headache ??? Pyogenic granuloma 08/26/2014 right cheek lesion Past Surgical History: Procedure Laterality Date ??? EXCISION/DESTRUCTION TISSUE/LESION Right 06/29/2015 Right; EXCISION RIGHT FACE LESION ??? PLASTIC SURGERY PROCEDURE Right 06/29/2015 Right; INTERMEDIATE WOUND CLOSURE Family History: family history is negative for Arthritis - Rheumatoid, Lupus, Thyroid Disease, Crohn's Disease, Ulcerative Colitis, Psoriasis, Sjogren's Syndrome, and Celiac Disease. Social History: 8th grade, active in [employer] Current Medications: Per HPI Allergies: MAJO Desai No Known Allergies. Physical Exam: BP 108/60 Pulse 60 Resp 16 Ht 1.61 m (5' 3.39 ) Wt 56.7 kg (125 lb) BMI 21.87 kg/m2 General: no distress, cooperative Skin: no rash or lesions, +livedo reticularis, normal temperature & turgor HEENT: conjunctivae [...] Abdomen: soft, non-tender, non-distended Neurologic: grossly intact, alert, muscle strength 5/5 Musculoskeletal Exam: Wrists T1S0 with palp and ROM Patellar tracking Knees T1S0 Otherwise T0S0 with FROM Lab/Diagnostics: January, CBC normal CRP negative Vitamin-D 37 RF negative SNEHA 1:160, homogeneous Assessment/Plan: MAJO HARRIS is a 12 y.o. female with wrist arthralgia that seems to be mostly due to overuse, and knee arthralgia that seems to be due to overuse as well as patellar tracking. No significant features to suggest this is inflammatory arthritis. Was found to have a moderately positive SNEHA on screening labs done by her PCP as reviewed above. Overall does not have significant signs or symptoms to raise suspicion for autoimmune disease. We will evaluate further as outlined below for any evidence of autoimmunity or systemic disease. She also has livedo reticularis and a history of migraines, so will screen anti phospho lipids. 1. Labs: as below, fasting 2. Radiology: as below 3. Medications: naproxen twice daily with meals, no other NSAIDs, only Tylenol p.r.n. 4. Other: advised on muscle strengthening exercises for wrists as well as knees, may order PT laterif not improving with home exercises 5. RTC in 4 weeks Marc Reza DO, FAAP, FACR [employer] Supervisor of Internal Medicine & Pediatrics Division of Adult & Pediatric Rheumatology [facility] Orders Placed This Encounter ??? XR WRIST LEFT 2VW ??? XR WRIST RIGHT 2VW ??? XR KNEE 3 VW LEFT ??? XR KNEE RIGHT 3VW ??? URINALYSIS REFLEX TO MICROSCOPIC NO CULTURE ??? C-REACTIVE PROTEIN ??? ESR - SED RATE WESTERGREN AUTO ??? DNA ANTIBODY DOUBLE STRAND ??? SM ANTIBODY MAURILIO ??? SS-A ANTIBODY ??? SS-B ANTIBODY ??? SCL70 ANTIBODY ??? OIL AGENT ANTIBODY ??? CHROMATIN ANTIBODY ??? COMPLEMENT CH50 ??? COMPLEMENT C3 ??? COMPLEMENT C4 ??? CYCLIC CITRUL PEPTIDE AB IGG (CCP) ??? HLA TYPING B27 ??? RHEUMATOID FACTOR BLOOD QUANTITATIVE ??? TSH ??? TISSUE TRANSGLUTAMINASE AB IGA ??? IMMUNOGLOBULINS PANEL (inc IgA, IgG, IgM) ??? DISCONTD: naproxen (NAPROSYN) 500 MG tablet ??? naproxen (NAPROSYN) 500 MG tablet documented in this encounter Plan of Treatment Not on file documented as of this encounter Procedures Procedure Name Priority Date/Time Associated Diagnosis Comments URINALYSIS REFLEX TO MICROSCOPIC NO CULTURE Routine 03/14/2018 10:41 AM CDT Arthralgia, unspecified joint SNEHA positive CHROMATIN ANTIBODY Routine 03/05/2018 8: 38 AM CDT Arthralgia, unspecified joint SNEHA positive TISSUE TRANSGLUTAMINASE AB IGA Routine 03/05/2018 8:38 AM CDT Arthralgia, unspecified joint SNEHA positive EMERY (SM) ANTIBODY MAURILIO Routine 09/24/20 18 8:38 AM CDT Arthralgia, unspecified joint SNEHA positive OIL AGENT ANTIBODY Routine 03/05/2018 8:38 AM CDT Arthralgia, unspecified joint SNEHA positive RHEUMATOID FACTOR BLOOD QUANTITATIVE Routine 03/05/2018 8:38 AM CDT Arthralgia, unspecified joint SNEHA positive C-REACTIVE PROTEIN Routine 03/05/2018 8: 38 AM CDT Arthralgia, unspecified joint SNEHA positive HLA TYPING B27 Routine 03/05/2018 8:38 AM CDT Arthralgia, unspecified joint SNEHA positive COMPLEMENT TOTAL Routine 03/05/2018 8:38 AM CDT Arthralgia, unspecified joint SNEHA positive SS-B (SJOGREN'S) ANTIBODY Routine 03/05/2018 8:38 AM CDT Arthralgia, unspecified joint SNEHA positive SS-A (SJOGREN'S) ANTIBODY Routine 03/05/2018 8:38 AM CDT Arthralgia, unspecified joint SNEHA positive SCLERODERMA 70 (SCL) ANTIBODY Routine 03/05/2018 8:38 AM CDT Arthralgia, unspecified joint SNEHA positive DNA ANTIBODY DOUBLE STRANDED Routine 03/05/2018 8:38 AM CDT Arthralgia, unspecified joint SNEHA positive CYCLIC CITRULLINATED PEPTIDE(CCP) AB IGG Routine 03/05/2018 8:38 AM CDT Arthralgia, unspecified joint SNEHA positive ERYTHROCYTE SEDIMENTATION RATE Routine 03/05/2018 8:38 AM CDT Arthralgia, unspecified joint SNEHA positive COMPLEMENT C4 Routine 03/05/2018 8:38 AM CDT Arthralgia, unspecified joint SNEHA positive TSH Routine 03/05/2018 8:38 AM CDT Arthralgia, unspecified joint SNEHA positive IMMUNOGLOBULINS IGG/IGM/IGA PANEL Routine 03/05/2018 8:38 AM CDT Arthralgia, unspecified joint SNEHA positive COMPLEMENT C3 Routine 03/05/2018 8:38 AM CDT Arthralgia, unspecified joint SNEHA positive documented in this encounter Results * URINALYSIS REFLEX TO MICROSCOPIC NO CULTURE (03/14/2018 10:41 AM CDT) Color UA YELLOW YELLOW [facility] Appearance CLEAR CLEAR [facility] Specific Goodwin UA 1.028 1.001 - 1.035 [facility] pH UA 6.0 5.0 - 8.0 [facility] Glucose UA NEGATIVE NEGATIVE [facility] Bilirubin UA NEGATIVE NEGATIVE [facility] Ketone UA NEGATIVE NEGATIVE [facility] Blood UA NEGATIVE NEGATIVE [facility] Protein UA NEGATIVE NEGATIVE [facility] Nitrite UA NEGATIVE NEGATIVE [facility] Leukocyte UA NEGATIVE NEGATIVE [facility] Comment: REPORT COMMENT: SPLIT 03/05/2018 FROM [id number] FASTING:UNKNOWN Test Performed at: [employer] [facility] [place], [place] ??[address] VELIA MATUTE DO,MPH Urine URINE SPECIMEN OBTAINED BY CLEAN CATCH PROCEDURE / Unknown 03/14/2018 10:41 AM CDT 03/14/2018 10:44 AM CDT Marc Reza DO LAB - URINAL YSIS ORDERABLES [facility] [address] [place] [address] * IMMUNOGLOBULINS PANEL (inc IgA, IgG, IgM) (03/05/2018 8:38 AM CDT) IgA 150 70 - 432 mg/dL [facility] IgG 1050 893 - 1823 mg/dL [facility] IgM 145 52 - 367 mg/dL [facility] Comment: Test Performed at: [employer] [place], [place] ??[address] VELIA MATUTE DO,MPH Blood BLOOD SPECIMEN / Unknown 03/05/2018 8:38 AM CDT 03/05/2018 8:39 AM CDT Marc Rex Libia DO LAB - CHEMIS TRY ORDERABLES Performing Organization Address [facility] de Phone Number [facility] [address] [place] [address] * TISSUE TRANSGLUTAMINASE AB IGA (03/05/2018 8:38 AM CDT) TTG Antibody IgA 1 <4 U/mL [facility] Comment: ?Value ??Interpretation ?<4 U/mL: No Antibody Detected ? >or=4 U/mL: Antibody Detected Test Performed at: [facility]/[address] ?? NASRA GOODEN MD,PHD Blood BLOOD SPECIMEN / Unknown 03/05/2018 8:38 AM CDT 03/05/2018 8:39 AM CDT Marc Reza DO LAB - SEROLO GY ORDERABLES Performing Organization Address [facility] de Phone Number [facility] [address] [place] [address] * TSH (03/05/2018 8:38 AM CDT) Pathologist [facility] TSH 1.71 mIU/L [facility] Comment: ? Reference Range ? 1-19 Years 0.50-4.30 ? Ranges ? First trimester ?? 0.26-2.66 ? Second trimester ??0.55-2.73 ? Third trimester ?? 0.43-2.91 REPORT COMMENT: FASTING:YES PATIENT UNABLE TO VOID; ADVISED TO RETURN FOR COLLECTION. Test Performed at: [facility] [address] [place] ??[address] VELIA MATUTE DO,MPH Blood BLOOD SPECIMEN / Unknown 03/05/2018 8:38 AM CDT 03/05/2018 8:39 AM CDT Marc Goodman Libia DO LAB - [employer] TRY ORDERABLES Performing Organization Address [facility] Co de Phone Number [facility] [phone] [place] [address] * RHEUMATOID FACTOR BLOOD QUANTITATIVE (03/05/2018 8:38 AM CDT) Pathologist [facility] Rheumatoid Factor <14 <14 IU/mL [facility] Comment: Test Performed at: [email or web address] [address] [place], [place] ??[address] VELIA MATUTE DO,MPH Blood BLOOD SPECIMEN / Unknown 03/05/2018 8:38 AM CDT 03/05/2018 8:39 AM CDT Marc Reza DO [employer] TRY ORDERABLES Performing Organization Address [facility] de Phone Number [facility] [phone] [place] [address] * HLA TYPING B27 (03/05/2018 8:38 AM CDT) [facility] HLA-B27 Antigen NEGATIVE NEGATIVE [facility] Comment: Test Performed at: [facility] [address] [place], [place] ??[address] DIONISIO LOPEZ MD,PHD,NURY Blood BLOOD SPECIMEN / Unknown 03/05/2018 8:38 AM CDT 03/05/2018 8:39 AM CDT Marc Goodman Libia [facility] [employer] TRY ORDERABLES Performing Organization Address [facility] de Phone Number [facility] [phone] [place] [address] * CYCLIC CITRUL PEPTIDE AB IGG (CCP) (03/05/2018 8:38 AM CDT) [facility] Cyclic Citrullinated Peptide Antibody IgG <16 UNITS [facility] Comment: Reference Range Negative: ?<20 Weak Positive: ? 20-39 Moderate Positive: ?? 40-59 Strong Positive: ? >59 Test Performed at: [facility] [address] [place], [place] ??[address] VELIA MATUTE DO,MPH Blood BLOOD SPECIMEN / Unknown 03/05/2018 8:38 AM CDT 03/05/2018 8:39 AM CDT Marc Laurymple DO LAB - CHEMIS TRY ORDERABLES Performing Organization Address City/[facility]/ZIP Co de Phone Number [facility] [phone] [place] [address] * COMPLEMENT C4 (03/05/2018 8:38 AM CDT) Complement C4 22 13 - 46 mg/dL [facility] Comment: Test Performed at: [facility] [address] ??[address] VELIA MATUTE DO,MPH Blood BLOOD SPECIMEN / Unknown 03/05/2018 8:38 AM CDT 03/05/2018 8:39 AM CDT Marc Laurymple DO LAB - SEROLO GY ORDERABLES Performing Organization Address [facility] Co de Phone Number [facility] [address] [place] [address] * COMPLEMENT C3 (03/05/2018 8:38 AM CDT) Complement C3 132 82 - 173 mg/dL [facility] Comment: Test Performed at: [facility] [address] [place], [place] ??[address] VELIA MATUTE DO,MPH Blood BLOOD SPECIMEN / Unknown 03/05/2018 8:38 AM CDT 03/05/2018 8:39 AM CDT Marc Goodman Libia DO LAB - CHEMIS TRY ORDERABLES Performing Organization Address [facility] Co de Phone Number [facility] [address] [place] [address] * (ABNORMAL) COMPLEMENT CH50 (03/05/2018 8:38 AM CDT) Complement Total CH50 >60(H) 31 - 60 U/mL [facility] Comment: Test Performed at: [facility] [address] [place], [place] ??[address] VELIA MATUTE DO,MPH Blood BLOOD SPECIMEN / Unknown 03/05/2018 8:38 AM CDT 03/05/2018 8:39 AM CDT Marc Reza DO LAB - CHEMIS TRY ORDERABLES Performing Organization Address [facility] Co de Phone Number [facility] [phone] [place] [address] * CHROMATIN ANTIBODY (03/05/2018 8:38 AM CDT) Chromatin Nucleosomal Antibody <1.0 NEG <1.0 NEG AI [facility] Comment: Test Performed at: [facility] [address] ??[phone] VELIA MATUTE DO,MPH Blood BLOOD SPECIMEN / Unknown 03/05/2018 8:38 AM CDT 03/05/2018 8:39 AM CDT Marc Reza DO LAB - SEROLO GY ORDERABLES Performing Organization Address [facility] Co de Phone Number [facility] [phone] [place] [address] * OIL AGENT ANTIBODY (03/05/2018 8:38 AM CDT) OIL AGENT Antibody <1.0 NEG <1.0 NEG AI [facility] Comment: Test Performed at: [email or web address] [address] [place], [place] ??[address] VELIA MATUTE DO,MPH Blood BLOOD SPECIMEN / Unknown 03/05/2018 8:38 AM CDT 03/05/2018 8:39 AM CDT Marc Reza DO LAB - CHEMIS TRY ORDERABLES Performing Organization Address [facility] Co de Phone Number [facility] [address] [place] [address] * SCL70 ANTIBODY (03/05/2018 8:38 AM CDT) SCL-70 Antibody <1.0 NEG <1.0 NEG AI [facility] Comment: Test Performed at: [facility] [address] [place], [place] ??[address] VELIA MATUTE DO,MPH Blood BLOOD SPECIMEN / Unknown 03/05/2018 8:38 AM CDT 03/05/2018 8:39 AM CDT Marc Rex Libia RODRIGUEZ LAB - CHEMIS TRY ORDERABLES Performing Organization Address City/[facility] Co de Phone Number [facility] [phone] [place] [address] * SS-B ANTIBODY (03/05/2018 8:38 AM CDT) Sjogren's Antibodies (SSB) <1.0 NEG <1.0 NEG AI [facility] Comment: Test Performed at: [facility] [address] [place], [place] ??[address] VELIA MATUTE DO,MPH Blood BLOOD SPECIMEN / Unknown 03/05/2018 8:38 AM CDT 03/05/2018 8:39 AM CDT Marc Reza DO LAB - [employer] TRY ORDERABLES Performing Organization Address [facility] Co de Phone Number [facility] [address] [place] [address] * SS-A ANTIBODY (03/05/2018 8:38 AM CDT) Sjogren's Antibodies (SSA) <1.0 NEG <1.0 NEG AI [facility] Comment: Test Performed at: [facility] [address] [place], [place] ??[address] VELIA MATUTE DO,MPH Blood BLOOD SPECIMEN / Unknown 03/05/2018 8:38 AM CDT 03/05/2018 8:39 AM CDT Marc Reza DO LAB [employer] TRY ORDERABLES Performing Organization Address City/[facility] Co de Phone Number [facility] [address] [place] [address] * SM ANTIBODY MAURILIO (03/05/2018 8:38 AM CDT) Pathologist [facility] SM Antibody <1.0 NEG <1.0 NEG AI [facility] Comment: Test Performed at: [facility] [address] ??[phone] VELIA MATUTE DO,MPH Blood BLOOD SPECIMEN / Unknown 03/05/2018 8:38 AM CDT 03/05/2018 8:39 AM CDT Marc Goodman Libia DO LAB - CHEMIS TRY ORDERABLES Performing Organization Address [facility] de Phone Number [facility] [phone] [place], [place] [id number] * DNA ANTIBODY DOUBLE STRAND (03/05/2018 8:38 AM CDT) Pathologist [facility] dsDNA Antibody 1 IU/mL [facility] Comment: ? IU/mL ? Interpretation ? < or = 4 ?Negative ? 5-9 ? Indeterminate ? > or = 10 ?? Positive Test Performed at: [facility] [address] ??[phone] VELIA MATUTE DO,MPH Blood BLOOD SPECIMEN / Unknown 03/05/2018 8:38 AM CDT 03/05/2018 8:39 AM CDT Marc Goodman Libia DO LAB - HEMATO LOGY ORDERABLES Performing Organization Address [facility] de Phone Number [facility] [address] [place] [address] * ESR - SED RATE WESTERGREN AUTO (03/05/2018 8:38 AM CDT) Erythrocyte Sedimentation Rate Westergren 2 < OR = 20 mm/h [facility] Comment: Test Performed at: [address] ??[phone] DANIEL BROCK MD Blood BLOOD SPECIMEN / Unknown 03/05/2018 8:38 AM CDT 03/05/2018 8:39 AM CDT Marc Reza DO LAB - HEMATO LOGY ORDERABLES Performing Organization Address [facility] Co de Phone Number [address] [address] * C-REACTIVE PROTEIN (03/05/2018 8:38 AM CDT) Pathologist [facility] C-Reactive Protein 0.3 <8.0 mg/L [facility] Comment: Test Performed at: [facility] [address] ??[phone] VELIA MATUTE DO,MPH Blood BLOOD SPECIMEN / Unknown 03/05/2018 8:38 AM CDT 03/05/2018 8:39 AM CDT Marc Reza DO LAB - CHEMIS TRY ORDERABLES Performing Organization Address [facility] Co de Phone Number [address] [address] documented in this encounter Visit Diagnoses Diagnosis Arthralgia, unspecified joint- Primary SNEHA positive Other and unspecified nonspecific immunological findings Patellar tracking disorder, unspecified laterality Livedo reticularis Pallor Overuse injury Unspecified site of sprain and strain Arthralgia of wrist, unspecified laterality Arthralgia of knee, unspecified laterality documented in this encounter Care Teams Ammonia Worker Relationship Specialty Start Date End Date Leticia Yoder MD PCP - General 08/14/14 documented as of this encounter
--- OUTSIDE RECORDS SUMMARY | 2024-05-29 23:32 | XMS_ITS | Encounter Summary ---
Author Organization [facility] Address [address] [place] [address] Phone Care Team Providers Care Front Desk Agent Name Role Phone Leticia Yoder MD Primary Care Provider Reason for Visit * Reason Comments Shoulder Pain Encounter Details Date Type Department Care Team (Late st Contact Info) Description 03/09/2021 9:31 AM CDT - 03/09/2021 11:33 AM CDT Emergency [facility] Emergency [address] [place] [address] Lg Chand MD Right shoulder injury, initial encounter Discharge Disposition: Discharged to home or Selfcare Social History Tobacco Use Types Packs/Day Years [...] have Coronavirus / COVID-19? No / Unsure 03/09/2021 9:26 AM CDT documented as of this encounter Last Filed Vital Signs Vital Sign Reading Time Taken Comments Blood Pressure 102/73 03/09/2021 11:32 AM CDT Pulse 62 03/09/2021 11:32 AM CDT Temperature 36.4 ??C (97.5 ??F) 03/09/2021 9:27 AM CD T Respiratory Rate 18 03/09/2021 11:32 AM CDT Oxygen Saturation 99% 03/09/2021 11:32 AM CDT Inhaled Oxygen Concentration - - Weight 60.8 kg (134 lb) 03/09/2021 9:27 AM CDT Height 160 cm (5' 3 ) 03/09/2021 9:27 AM CDT Body Mass Index 23.74 03/09/2021 9:27 AM CDT Body Mass Index Percentile 79.24% 03/09/2021 9:2 7 AM CDT Growth Chart: [facility] (Girls, 2- 20 Years) documented in this encounter Discharge Instructions * Attachments The following attachments cannot be sent through Care Everywhere. * Shoulder Instability, Understanding (Slovenian) documented in this encounter Medications at Time of Discharge ibuprofen (MOTRIN) 600 MG Tablet Take 1 Tablet by mouth every 6 hours as needed for Moderate or more severe pain or Fever. 60 Tablet 03/09/2021 02/24/2023 documented as of this encounter ED Notes * Lara Moseley RN - 03/09/2021 11:32 AM CDT Patient discharged. Discharge instructions and patient educational material reviewed with patient; questions and concerns addressed; patient verbalizes understanding, using teach back. Patient was given 1 prescription. Patient discharged per ambulatory mode with father as responsible republican. * Lg Chand MD - 03/09/2021 11:07 AM CDT Chief Complaint Patient presents with ??? Shoulder Pain The patient is a 15-year-old female who has had multiple dislocations of the right shoulder. Yesterday afternoon she was doing back handsprings in cheerleading practice when she felt like her right shoulder dislocated. She presents to the ER this morning for evaluation. She states that the shoulderis mild to moderately sore on increases with movement. He is neurovascularly intact distally in theright upper extremity. No current facility-administered medications for this encounter. Current Outpatient Medications Medication Sig Dispense Refill ??? ibuprofen (MOTRIN) 600 MG Tablet Take 1 Tablet by mouth every 6 hours as needed for Moderate ormore severe pain or Fever. 60 Tablet 0 No Known Allergies History reviewed. No pertinent past medical history. Past Surgical History: Procedure Laterality Date ??? ADENOIDECTOMY ??? TONSILLECTOMY Social History Socioeconomic History ??? Marital status: Single Spouse name: Not on file ??? Number of children: Not on file ??? Years of education: Not on file ??? Highest education level: Not on file Occupational History ??? Not on file Tobacco Use ??? Smoking status: Never Smoker ??? Smokeless tobacco: Never Used Vaping Use ??? Vaping Use: Never used Substance and Sexual Activity ??? Alcohol use: Never ??? Drug use: Never ??? Sexual activity: Not on file Other Topics Concern ??? Not on file Social History Narrative ??? Not on file Social Determinants of Health Social determinant risk not applicable to this patient. BP (!) 97/72 Pulse 63 Temp 97.5 ??F (36.4 ??C) (Temporal) Resp 18 Ht 5' 3 (1.6 m) Wt 60.8 kg (134 lb) SpO2 100% BMI 23.74 kg/m?? Review of Systems Constitutional: Negative. HENT: Negative. Respiratory: Negative. Cardiovascular: Negative. Gastrointestinal: Negative. Musculoskeletal: Positive for arthralgias. All other systems reviewed and are negative. Physical Exam Vitals and nursing note reviewed. Constitutional: General: She is not in acute distress. Appearance: Normal appearance. She is normal weight. HENT: Head: Normocephalic and atraumatic. Right Ear: External ear normal. Left Ear: External ear normal. Eyes: Extraocular Movements: Extraocular movements intact. Conjunctiva/sclera: Conjunctivae normal. Pupils: Pupils are equal, round, and reactive to light. Cardiovascular: Rate and Rhythm: Normal rate and regular rhythm. Heart sounds: Normal heart sounds. No murmur heard. Pulmonary: Effort: Pulmonary effort is normal. No respiratory distress. Breath sounds: Normal breath sounds. No wheezing. Abdominal: Tenderness: There is no abdominal tenderness. Musculoskeletal: General: Tenderness (Right deltoid) present. No swelling or deformity. Cervical back: Normal range of motion and neck supple. Skin: General: Skin is warm and dry. Neurological: General: No focal deficit present. Mental Status: She is oriented to person, place, and time. Mental status is at baseline. Psychiatric: Mood and Affect: Mood normal. Behavior: Behavior normal. Procedures Imaging Results XR SHOULDER COMPLETE RIGHT (Final result) Result time 03/09/21 09:55:28 Final result by Armen King MD (03/09/21 09:55:28) Impression: IMPRESSION: No acute findings right shoulder. Narrative: EXAM DESCRIPTION: XR SHOULDER COMPLETE RIGHT REASON FOR STUDY: right shoulder pain today. history of dislocation 2 wks ago. TECHNIQUE: Three views COMPARISON: None available FINDINGS: No acute fracture or dislocation. No lytic or destructive process. Adjacent ribs and lung apex unremarkable. THIS IS AN ELECTRONICALLY VERIFIED FINAL REPORT 03/09/2021 9:52 AM - Electronically signed by Armen King M.D. RB: MATT Report ID: [id number] Reading Location: [id number] [place] Coding Clinical Impression 1. Right shoulder injury, initial encounter The patient remained stable throughout their ED stay. My clinical impression was discussed with thepatient/family. Radiology results were reviewed with them. I gave them the opportunity to ask questions, and addressed them as completely as possible given the information available at present. The therapeutic plan was discussed, instructions were given and the importance of primary care follow up was stressed and encouraged. The patient/family voiced understanding of the plan, indications to return, and the need for follow up. * Latisha Tavares RN - 03/09/2021 10:50 AM CDT Patient ambulatory to ER room #11B with father with c/o right shoulder pain starting last night. Positive PMS to RUE. No distress noted. * Lara Moseley RN - 03/09/2021 9:29 AM CDT Patient to triage accompanied by father with complaints of possible right shoulder dislocation. Patient states that she was doing a backhand spring in cheerleading when she noticed the shoulder pain.Patient states that her should has become dislocated multiple times. Last time, patient states was two weeks ago while doing a jump. Patient was seen by the display director at her school and has a sling in place. documented in this encounter Plan of Treatment Not on file documented as of this encounter Procedures Procedure Name Priority Date/Time Associated Diagnosis Comments XR SHOULDER COMPLETE RIGHT STAT 03/09/2021 9:42 AM CDT documented in this encounter Results * XR SHOULDER COMPLETE RIGHT (03/09/2021 9:42 AM CDT) Anatomical Region Laterality Modality UPPER EXTREMITY, shoulder Right Digita l Radiography 03/09/2021 9:52 AM CDT Impressions 03/09/2021 9:55 AM CDT IMPRESSION: ?? No acute findings right shoulder. Narrative 03/09/2021 9:55 AM CDT EXAM DESCRIPTION: ?? XR SHOULDER COMPLETE RIGHT REASON FOR STUDY: ?? right shoulder pain today. history of dislocation 2 wks ago. TECHNIQUE: ?? Three views COMPARISON: ?? None available FINDINGS: ?? No acute fracture or dislocation. ??No lytic or destructive process. ??Adjacent ribs and lung apex unremarkable. THIS IS AN ELECTRONICALLY VERIFIED FINAL REPORT 03/09/2021 9:52 AM - Electronically signed by Armen King M.D. RB: MATT D: ??03/09/2021 9:52 AM T: ??03/09/2021 9:52 AM Report ID: [id number] Reading Location: ??[id number] Procedure Note Armen King MD - 03/09/2021 EXAM DESCRIPTION: XR SHOULDER COMPLETE RIGHT REASON FOR STUDY: right shoulder pain today. history of dislocation 2 wks ago. TECHNIQUE: Three views COMPARISON: None available FINDINGS: No acute fracture or dislocation. No lytic or destructive process. Adjacent ribs and lung apex unremarkable. THIS IS AN ELECTRONICALLY VERIFIED FINAL REPORT 03/09/2021 9:52 AM - Electronically signed by Armen King M.D. RB: MATT Report ID: [id number] Reading Location: [id number] IMPRESSION: No acute findings right shoulder. Lg Chand MD IMG DIAGNOSTIC ORDERABLES F inal Result documented in this encounter Visit Diagnoses Diagnosis Right shoulder injury, initial encounter- Primary documented in this encounter Care Teams Front Desk Agent Relationship Specialty Start Date End Date Leticia Yoder MD [address] [place] [address] [facility] [address] [place] [address] PCP - General Pediatrics 03/09/21 documented as of this encounter
--- OUTSIDE RECORDS SUMMARY | 2024-05-29 23:32 | XMS_ITS | Encounter Summary ---
Author Organization [facility] Address [address] [facility] [address] Care Team Providers Care Policy Writer Typist Name Role Phone Leticia Yoder MD Primary Care Provider Myesha Steward PA-C Unavailable Reason for Visit * Reason Comments Upper Extremity Problem right shoulder Encounter Details Date Type Department Care Team (Latest Contact Info) Description 02/20/2019 11:00 AM CDT - 02/20/2019 11:30 AM CDT Hospital Encounter [facility] Pediatrics - Orthopedics [address] [place] [address] Myesha Steward PA-C [address] [place] [address] Discharge Disposition: Home or Self [...] - Inhaled Oxygen Concentration - - Weight 57.9 kg (127 lb 10.3 oz) 019 11:08 AM CDT Height 162.8 cm (5' 4.09 ) 02/20/2019 1 1:08 AM CDT Body Mass Index 21.85 02/20/2019 11:08 AM CDT Body Mass Index Percentile 74.54% 02/20 11:08 AM CDT Growth Chart: [facility] (Girls, 2- 20 Years) documented in [...] * Patient Instructions* Myesha Steward PA-C - 02/20/2019 11:31 AM CDT Images from the original note were not included. Adult and Pediatric Orthopaedic Surgery Sports Medicine [email or web address] ORTHOPAEDIC CLINIC DISCHARGE INSTRUCTIONS SHEET Jerrod Harris 02/20/2019 Thank you for coming in to see us today. Work/School Excuse: Excused from School on 02/20/2019 DIAGNOSIS: Dislocation of right shoulder joint, initial encounter - Plan: XR SHOULDER RIGHT 1VW, AMB REFERRAL TO PHYSICAL THERAPY Plan: We recommend that you try the following for your injury: icing 20 minutes at a time, 3 to 5 times daily, physical therapy exercises and anti-inflammatory medications Activity Restrictions: no sports until further notice, no throwing and avoid placing hand or arm above and behind head Follow up: 3 weeks Call or return to clinic prn if [...] and given information regarding their diagnosis today. [facility] Orthopaedic office contact information: To Leave a Non-Urgent message, please call: To make an appointment, please call: , option 2 Locations: [facility] , option 2 [place] location: [address] [facility], [place] [address] [facility] location: [address] [place], [place] [address] [place] [address] [place] [address], [address] [address] Please contact the [place] at , if you have any further questions or concerns. [facility] [address] [place] [address] Please contact Jose Carlos Contreras RN at , if you have any further questions or concerns. Sincerely, Myesha Steward MPA, PA-C [email or web address] documented in this encounter Medications at Time of Discharge Medication Sig Dispensed Refills Start Date End Date naproxen (NAPROSYN) 500 MG tabletIndications:Arthra lgia, unspecified joint Take 1 tablet by mouth 2 times daily with morning and evening meal 60 tablet 3 02/20/2018 03/13/2019 documented as of this encounter Progress Notes * Myesha Steward PA-C - 02/20/2019 12:[address] Leticia Ydoer MD ; Today, 02/20/19, we had the pleasure of seeing Jerrod Harris at [facility] Orthopaedic Sports Medicine and Shoulder Surgery [facility] for evaluation of her right shoulder chief complaint. Jerrod Harris is a 13 year old female who c/o right anterior to posterior shoulder pain with instability since her R shoulder dislocation on 02/01/19. She reports doing a back handspring which caused her shoulder to dislocate for the first time. She brings XRs from [facility]. Previous treatment tried includes icing, anti-inflammatory medications, tylenol and sling for theirsymptoms. Sports/Activities: cheer Smoking/tobacco use: not done Single Assessment Numeric Evaluation (SANE Score 0-100): SANE Score 02/20/2019 Right Shoulder Score 65 Medications: Current Outpatient Medications on File Prior to Encounter Medication Sig Dispense Refill ??? naproxen (NAPROSYN) 500 MG tablet Take 1 tablet by mouth 2 times daily with morning and eveningmeal 60 tablet 3 No current facility-administered medications on file prior to encounter. Allergies: Allergies as of 02/20/2019 ??? (No Known Allergies) PMH: Past Medical [...] muscle aches, no leg cramping Physical Exam: Body mass index is 21.85 kg/m??. Vitals: 02/20/19 1108 Weight: 127 lb 10.3 oz (79418 g) Height: 5' 4.09 (162.8 cm) Awake, alert and oriented. Gait is normal. [...] There is no scapular winging. There is tenderness of the rotator cuff insertion, long head biceps and proximal humerus. Thereis restricted passive range of motion (120 deg elevation). There is restricted active range of motion (90 deg elevation). Strength for elevation in the scapular plane is 4/5. There is not a sulcus sign. There is no generalized ligamentous laxity. Anterior apprehension is positive. Relocation test is positive. Posterior apprehension is equivocal. Benton's test is positive. Shoulder impingement test is equivocal. Imaging: R shoulder X-rays images demonstrate glenohumeral joint in good alignment with no fractures. CD images revealed post reduction of anterior dislocation. Images were personally interpreted and reviewed by me today in clinic. Impression: Dislocation of right shoulder joint, initial encounter ? Plan: We recommend that you try the following for your injury: icing 20 minutes at a time, 3 to 5 times daily, physical therapy exercises and anti-inflammatory medications ?? Activity Restrictions: no sports until further notice, and avoid placing hand or arm above and behind head. Wear sling at night to bed. ? Follow up: 3 weeks for re-evaluation ?? Patient was educated and given information regarding their diagnosis today. Please do not hesitate to contact me with questions regarding her or any other patient in the future. Sincerely, Myesha Steward MPA, PA-C * Yonis Oh - 02/20/2019 11:13 AM CDT - Reason for visit: right shoulder - When & How it happened: 02/01/2019 steven was tumbling and injuried her shoulder - Where & how was it treated: [facility] took Xrays and gave patient a shoulder sling - Pain level 0 out of 10 documented in this encounter Plan of Treatment Not on file documented as of this encounter Results * XR SHOULDER RIGHT 1VW (02/20/2019 11:33 AM CDT) Anatomical Region Laterality Modality Upper Extremity Radiographic Shena ging 02/20/2019 2:34 PM CDT Impressions 02/20/2019 2:38 PM CDT Normal axillary view of the right shoulder. Reading Radiologist: Armen Traylor MD on 02/20/2019 at 2:38 PM Narrative 02/20/2019 2:38 PM CDT XR SHOULDER RIGHT 1VW*[id number] 02/20/2019 11:31 AM INDICATION: Unspecified dislocation of right shoulder joint, initial encounter COMPARISON: None available at the time of dictation. TECHNIQUE: Single axillary view of the right shoulder. FINDINGS: The joints are appropriately aligned as viewed on this projection. There is no visible fracture. There are no stress changes. Procedure Note Armen Traylor MD - 02/20/2019 XR SHOULDER RIGHT 1VW*[id number] 02/20/2019 11:31 AM INDICATION: Unspecified dislocation of [...] of right shoulder joint, initial encounter- Primary Dislocation of right shoulder joint, initial encounter Exposure to other specified factors, initial encounter documented in this encounter Care Teams Policy Writer Typist Relationship Specialty Start Date End Date Leticia Yoder MD PCP - General 08/14/14 Myesha Steward PA-C [address] [address] Physician [employer] R[employer] Apprentice 02/20/19 documented as of this encounter
--- OUTSIDE RECORDS SUMMARY | 2024-05-29 23:32 | XMS_ITS | Encounter Summary ---
Author Organization [facility] Address [address] [place] [address] Care Team Providers Care Records Management Technician Name Role Phone Leticia Yoder MD Primary [...] Expiration Date Visits Re quested Visits Authorized [id number] 1 1 Encounter Details Date Type Department Care Team (Late st Contact Info) Description 06/29/2015 11:45 AM MUSEUM TOUR GUIDE - 06/29/2015 12:35 PM [facility] Surgery [address] [address] Dandy Kaplan MD Need updated address EXCISION RIGHT FACE LESION Surgery Details Date/Time Status Location OR Service Patient Class Case Class Case Type Trauma Case? 06/29/2015 11:45 AM Posted MAIN OR Plastics Surgery Day Care Elective > 5 days Panel 1 Procedure LRB Anes Op Region Wound Class Comments EXCISION RIGHT FACE LESION Right General Face Richard an INTERMEDIATE WOUND CLOSURE Right General Face Richard an Surgeon Surgeon Role Service Panel Dandy Kaplan MD Primary Plastics 1 Chacho Blue MD Resident - Assisting Plastics 1 documented in this encounter Social History Tobacco Use Types Packs/Day Years Used Date Smoking Tobacco: Never Assessed Sex and Gender Information Value Date Recorded Sex Assigned at Not on file Gender Identity Not on file Sexual Orientation Not on file documented as of this encounter Last Filed Vital Signs Vital Sign Reading Time Taken Comments Blood Pressure 106/62 06/29/2015 1:45 PM MUSEUM TOUR GUIDE Pulse 98 06/29/2015 2:00 PM MUSEUM TOUR GUIDE Temperature 36.8 ??C (98.2 ??F) 06/29/2015 1:35 PM CS T Respiratory Rate 18 06/29/2015 2:00 PM MUSEUM TOUR GUIDE Oxygen Saturation 100% 06/29/2015 2:00 PM MUSEUM TOUR GUIDE Inhaled Oxygen Concentration - - Weight 41.2 kg (90 lb 13.3 oz) 06/29/19 16 10:40 AM MUSEUM TOUR GUIDE Height 151.1 cm (4' 11.49 ) 06/29/2015 10:40 AM MUSEUM TOUR GUIDE Body Mass Index 18.05 06/29/2015 10:40 AM MUSEUM TOUR GUIDE Body Mass Index Percentile 61.63% 06/29 10:40 AM MUSEUM TOUR GUIDE Growth Chart: [facility] (Girls, 2- 20 Years) documented in this [...] None Hospital Course Majo Harris arrived at [facility] and was taken to the operating room 06/29/2015 for excision of right cheek mass, likely pyogenic granuloma. Mjao Harris tolerated the procedure well andwas discharged [...] Comments Your discharge diagnosis is Cheek mass [[id number]] No special diet needed Resume normal home [...] see Dr. Kaplan in about 2 weeks. UM TOUR GUIDE documented in this encounter Medications at Time [...] Has a family household. Primary language is Welsh. REVIEW OF SYSTEMS Constitutional: no fevers, chills [...] risk for bleeding. -OR today for excision UM TOUR GUIDE documented in this encounter Nursing Notes * Therese Zayas RN - 05/05/2015 11:07 AM CST Neel, mom, wants to cancel the surgery scheduled with Dr. Kaplan, as she cannot get off work on 05/13. She stated that she had left 2 previous messages and has not had a return call. i transferred her to[facility] ([phone]) for rescheduling. UM TOUR GUIDE documented in this encounter OR Notes * Operative - Dandy Kaplan MD - 06/29/2015 5:56 PM CST [facility] [address] [phone] OPERATIVE REPORT NAME: MAJO HARRIS : 2005 UNIT #: [id number] CSN #: [id number] DATE OF OPERATION: 06/29/2015 ATTENDING SURGEON: DANDY KAPLAN MD PREOPERATIVE DIAGNOSIS: Right face lesion. POSTOPERATIVE DIAGNOSIS: Right face lesion. PROCEDURES PERFORMED: 1. Excision of right face lesion, 5 mm. 2. Intermediate layered closure of right face lesion, 5 mm. RADIATOR CORE TESTER SURGEON: Chacho Blue MD. ANESTHESIA: General plus [...] None apparent. Dictated By: DANDY KAPLAN MD [place]/Med JOB ID: [id number] OPERATIVE REPORT UM TOUR GUIDE * Brief Op Note - Chacho Blue MD - 06/29/2015 1:29 PM CST Brief Post-Operative Note 06/29/2015 Majo Harris Date of Surgery: 06/29/2015 Surgeon(s) and Role: * Dandy Kaplan MD - Primary * Chacho Blue MD - Resident - Assisting Anesthesiologist: Jaren Gould MD Accreditation Specialist: Jamie Nicholson DO Pre-Op Diagnosis Codes: * Benign neoplasm [...] in log * Case Length: 50 Min UM TOUR GUIDE documented in this encounter Plan of Treatment Not on file documented as of this encounter Procedures Procedure Name Priority Date/Time Associated Diagnosis Comments PATHOLOGY TISSUE EXAM (STL) STAT 06/29/2015 1:08 PM MUSEUM TOUR GUIDE Benign neoplasm of skin of cheek, external REPAIR, INTERMEDIATE, FACE/EARS/EYELIDS/N OSE/ LIPS 2.5CM < 06/29/2015 12:34 PM MUSEUM TOUR GUIDE Benign neoplasm of skin of cheek, external EXCISION NEVUS FACE/SCALP 06/29/2015 12:34 PM MUSEUM TOUR GUIDE Benign neoplasm of skin of cheek, external documented in this encounter Results * GROSS + MICRO EXAM (STL) (06/29/2015 1:08 PM MUSEUM TOUR GUIDE) Case Report Surgical Pathology Report ? Case: [id number] ? Authorizing Provider: ??Dandy Kaplan MD ?Collected: ? 06/29/2015 01:08 PM ? Ordering Location: ? [facility] ? Received: ?06/29/2015 02:03 PM ? Pathologist: ? Gretchen Blankenship MD ? Specimen: ?Cheek Lesion, Right cheek lesion ? 07/02/2015 1:13 PM [facility] Final Diagnosis SKIN, RIGHT CHEEK LESION, EXCISION: - EPIDERMAL INCLUSION CYST - PYOGENIC GRANULOMA 07/02/2015 1:13 PM [facility] Clinical History The patient is a 9-year-old girl who underwent excision of a right cheek lesion; likely pyogenic granuloma, by exam. 07/02/2015 1:13 PM [facility] Gross Description Submitted fresh in one [...] cassette A1. (/luis angel) 07/02/2015 1:13 PM [facility] Microscopic Description A) 1 H&E Slides [...] regressing pyogenic granuloma. ??(NW/c[place]den) 07/02/2015 1:13 PM MUSEUM TOUR GUIDE [facility] Pathology/Cytolo gy INCISIONAL BIOPSY OF LESION OF CHEEK / Unknown 06/29/2015 1:08 PM MUSEUM TOUR GUIDE 06/29/2015 2:03 PM MUSEUM TOUR GUIDE Dandy Kaplan MD LAB - PATHOLOGY/CYTO LOGY ORDERABLES [facility] [address] [place] [address] documented in this encounter Visit Diagnoses Diagnosis Benign neoplasm of skin of cheek, external Benign neoplasm of skin of other and unspecified parts of face Benign neoplasm of skin of cheek, external Benign neoplasm of skin of other and unspecified parts of face documented in this encounter Administered Medications Inactive Administered Medications - up to 3 most recent administrations Medication Order MAR Action Action Date Dose Rate Site bupivacaine 0.25% - epinephrine 1:200,000 (PF) injection PRN, Starting on Mon06/29/15 at 1300, Until Mon06/29/15 at 1345, Intra-op $ Given 06/29/2015 1:25 PM MUSEUM TOUR GUIDE 2.5 mL Operative Site $ Given 06/29/2015 1:00 PM MUSEUM TOUR GUIDE 2 mL Op erative Site midazolam (VERSED) solution 10 mg 10 mg (0.243 mg/kg), Oral, PRE-OP ONCE, 1 dose, On Mon06/29/15 at 1103 $ Given 06/29/2015 11:55 AM MUSEUM TOUR GUIDE 10 mg documented in this encounter Active and Recently Administered Medications Times are shown in MUSEUM TOUR GUIDE. Scheduled Medication Order 06/27/2015 06/28/2015 06/29/2015 midazolam (VERSED) solution 10 mg (COMPLETED) 10 mg (0.243 mg/kg), Oral, PRE-OP ONCE, 1 dose, On Mon06/29/15 at 1103 1155 ($ Given - Prov ider: Carleen Snow RN) PRN Medication Order 06/27/2015 06/28/2015 06/29/2015 bupivacaine 0.25% - epinephrine 1:200,000 (PF) injection (CANCELED) PRN, Starting on Mon06/29/15 at 1300, Until Mon06/29/15 at 1345, Intra-op 1300 ($ Given - Prov ider: Dandy Kaplan MD)1325 ($ Given - Provider: Dandy Kaplan MD) documented in this encounter Care Teams Records Management Technician Relationship Specialty Start Date End Date Leticia Yoder MD PCP - General 08/14/14 documented as of this encounter
--- OUTSIDE RECORDS SUMMARY | 2024-05-29 23:32 | XMS_ITS | Data Portability ---
[facility] Organization [facility] [address] [place] [address] Care Team Providers Care Instrument Operator Name Role Phone MARY CHAPMAN Primary Care Provider Assessment No assessment recorded. Plan of Treatment Reminders Order Date Submit Date Provider Last Modified By Organization Details Last Modified Time Details Appointments ANY 15 2024 11:00A M Shelley Sauer, JOSÉ-C Not available Not available Not available Lab test, urine 2023 024 [email or web address] In-Office Order, Internal Use Only DO Not Attach Compendium DO Not Attach Compendium, Do Not Delete/merge, [id number] 07/31/2023 12:05:48 urinalysi s, dipstick 2023 024 [email or web address] In-Office Order, Internal Use Only DO Not Attach Compendium DO Not Attach Compendium, Do Not Delete/merge, [id number] 09/20/2023 16:43:11 test, urine 2023 024 [email or web address] In-Office Order, Internal Use Only DO Not Attach Compendium DO Not Attach Compendium, Do Not Delete/merge, [id number] 09/20/2023 16:43:11 HCG, intact + beta subunit, quant, serum or plasma 2023 024 AGUEDA [facility], [address], [place] [address], [place], [address], 09/21/2023 16:13:52 chlamydia trachomat is + neisseria gonorrhoe ae + trichomon as vaginalis DNA panel, FLORY+probe , unspecifi ed specimen 2023 024 BRAINTREE [facility], [address], [place] [address], [place], [address], 11/09/2023 07:15:16 test, urine 2023 024 [email or web address] In-Office Order, Internal Use Only DO Not Attach Compendium DO Not Attach Compendium, Do Not Delete/merge, [id number] 11/07/2023 12:10:20 Referral None recorded. Procedures None recorded. Surgeries None recorded. Imaging None recorded. Medication Orders Slynd 4 mg (28) tablet 2023 024 [facility], [address] , [place], [address], 09/20/2023 14:33:04 Diclegis 10 mg-10 mg tablet,de layed release 2023 024 [facility][id number], [address], [place], [place], [id number], 11/07/2023 12:07:27 Vitamin 27 mg iron-800 mcg tablet 2023 024 [facility] #13817, [address], [place], [place], [id number], 11/07/2023 12:07:48 medroxypr ogesteron e 150 mg/mL intramusc ular suspensio n 2023 024 hernáncolleen [facility], [address], [place], [place], [id number], 11/07/2023 12:21:19 medroxypr ogesteron e 150 mg/mL intramusc ular suspensio n 2023 024 [facility] #65815, [address], [place], [place], [id number], 11/07/2023 12:53:53 medroxypr ogesteron e 150 mg/mL intramusc ular suspensio n 2023 024 [facility] #51133, [address], [place], [place], [id number], 11/07/2023 12:53:55 medroxypr ogesteron e 150 mg/mL intramusc ular suspensio n 2023 024 [facility] #18702, [address], [place], [place], [id number], 01/31/2024 12:14:42 FE 07/01 (28) 1 mg-20 mcg (21)/75 mg (7) tablet 2023 024 [facility] #90450, [address], [place], [place], [id number], 04/17/2024 12:26:01 Patient TargetsNo targets recorded. Patient InstructionsNo instructions recorded. Reason for Referral None Reported. Results Created Date Observation Date Name Description Value Unit Range Abnormal Flag Note LastModifiedBy Organization Detail LastModifiedTime 07/31/19 24 07/31/2023 pregn yosvany test, urine HCG negati ve Not Available In-Office Order Internal Use Only DO Not Attach Compendium DO Not Attach Compendium, Do Not Delete/merge, [id number] 07/31/2023 11:31:36 09/20/19 24 09/21/2023 HCG,B ETA SUBUN IT, QNT HCG,beta subunit,qnt, serum 48496 mIU/m L Femal e (Non- pregn ant) 0 - 5 (Post menop ausal ) 0 - 8 Femal e (Preg nant) Weeks of Gesta tion 3 6 - 71 4 10 - 750 5 400 - 5769 6 203 - 78307 7 2698 -8954 63 8 25741 -8666 71 9 67192 -7496 10 10 04336 -1869 77 12 59480 -2106 12 14 16322 - 00895 15 17288 - 37252 16 5107 - 16782 17 6355 - 40033 18 4146 - 52016 Resul ts confi rmed on dilut ion. Harshad ECLIA metho dolog y Not Available [facility] ([facility]) [address], [place], [address], 09/21/2023 16:13:52 09/20/19 24 09/20/2023 urina lysis , dipst ick Leukocytes Negati ve Not Available In-Office Order Internal Use Only DO Not Attach Compendium DO Not Attach Compendium, Do Not Delete/merge, 09/20/2023 14:24:09/20/19 24 09/20/2023 urina lysis , dipst ick Nitrite negati ve Not Available In-Office Order Internal Use Only DO Not Attach Compendium DO Not Attach Compendium, Do Not Delete/merge, 09/20/2023 14:24:01 09/20/19 24 09/20/2023 urina lysis , dipst ick Urobilinogen .2 Not Available In-Of fice Order Internal Use Only DO Not Attach Compendium DO Not Attach Compendium, Do Not Delete/merge, 09/20/2023 14:24:01 09/20/19 24 09/20/2023 urina lysis , dipst ick Protein Negati ve Not Available In-Office Order Internal Use Only DO Not Attach Compendium DO Not Attach Compendium, Do Not Delete/merge, 09/20/2023 14:24:01 09/20/19 24 09/20/2023 urina lysis , dipst ick pH 6.0 Not Available In-Office Order Internal Use Only DO Not Attach Compendium DO Not Attach Compendium, Do Not Delete/merge, 09/20/2023 14:24:01 09/20/19 24 09/20/2023 urina lysis , dipst ick Blood Negati ve Not Available In-Office Order Internal Use Only DO Not Attach Compendium DO Not Attach Compendium, Do Not Delete/merge, 09/20/2023 14:24:01 09/20/19 24 09/20/2023 urina lysis , dipst ick Specific [place] 1.025 Not Available In-Off ice Order Internal Use Only DO Not Attach Compendium DO Not Attach Compendium, Do Not Delete/merge, 09/20/2023 14:24:01 09/20/19 24 09/20/2023 urina lysis , dipst ick Ketone Modera te Not Available In-Office Order Internal Use Only DO Not Attach Compendium DO Not Attach Compendium, Do Not Delete/merge, 09/20/2023 14:24:01 09/20/19 24 09/20/2023 urina lysis , dipst ick Bilirubin Negati ve Not Available In-Office Order Internal Use Only DO Not Attach Compendium DO Not Attach Compendium, Do Not Delete/merge, 09/20/2023 14:24:01 09/20/19 24 09/20/2023 urina lysis , dipst ick Glucose Negati ve Not Available In-Office Order Internal Use Only DO Not Attach Compendium DO Not Attach Compendium, Do Not Delete/merge, 09/20/2023 14:24:01 09/20/19 24 09/20/2023 urina lysis , dipst ick Appearance Clear Not Available In-Offi ce Order Internal Use Only DO Not Attach Compendium DO Not Attach Compendium, Do Not Delete/merge, 09/20/2023 14:24:01 09/20/19 24 09/20/2023 urina lysis , dipst ick Color Yellow Not Available In-Office Order Internal Use Only DO Not Attach Compendium DO Not Attach Compendium, Do Not Delete/merge, 09/20/2023 14:24:01 09/20/19 24 09/20/2023 pregn yosvany test, urine HCG positi ve Not Available In-Office Order Internal Use Only DO Not Attach Compendium DO Not Attach Compendium, Do Not Delete/merge, 09/20/2023 14:24:02 11/07/19 24 11/09/2023 CT, NG, TRICH VAG BY FLORY chlamydia by FLORY NEGATI VE negati ve Not Available [facility] ([facility]) [address], [place], [address], 11/09/2023 07:15:16 11/07/19 24 11/09/2023 CT, NG, TRICH VAG BY FLORY gonococcus by FLORY NEGATI VE negati ve Not Available [facility] ([facility]) [address], [place], [address], 11/09/2023 07:15:16 11/07/19 24 11/09/2023 CT, NG, TRICH VAG BY FLORY trich vag by FLORY NEGATI VE negati ve Not Available [facility] ([facility]) [address], [place], [address], 11/09/2023 07:15:16 11/07/19 24 11/07/2023 pregn yosvany test, urine HCG negati ve Not Available In-Office Order Internal Use Only DO Not Attach Compendium DO Not Attach Compendium, Do Not Delete/merge, [id number] 11/07/2023 12:10:12 Result Notes None recorded. Problems Name Problem SNOMED Code Status Onset Date Resolution Date Notes Provider Name and Address Organization Details Recorded Time Dysmenorrhea 178160104 Active 2018 Not Available [facility] 3 00:47:24 Dysuria 57375972 Active 2018 Not Available [facility] 3 00:47:24 Pyogenic granuloma 990842878 Active Not Available [facility] 3 00:47:24 Acute urinary tract infection 783626953 Active 2022 MARY CHAPMAN MD Attn: Accounting ,[address], [place], [address] , [facility] 3 12:44:27 Problem Notes None recorded. Procedures Surgical History Date Name Laterality Status Provider Name and Address Organization Details Recorded Time procedure on shoulder completed Lori Varma MA [facility] 10/28/2022 15:09:57 tonsillectomy completed Lori Varma MA [facility] 10/28/2022 15:10:17 Imaging Results None recorded. Procedure Notes None recorded. Medical Equipment None Reported. Allergies No known drug allergies Medications Name Sig Start Date Stop Date Status Note LastModified by Organization Details LastModified Time amoxicillin 500 mg capsule 09/04 completed Not Available Not Available Not Available naproxen 375 mg tablet Take 1 tablet every 12 hours by oral route as needed. 07/06 completed Not Available Not Available Not Available fluconazole 150 mg tablet Take 1 tablet every day by oral route for 1 day. 08/11 completed Not Available Not Available Not Available phenazopyri dine 200 mg tablet Take 1 tablet 3 times a day by oral route for 2 days. 08/11 completed Not Available Not Available Not Available sumatriptan 25 mg tablet Take 1 25 mg tablet by mouth x 1; may repeat dose after 2 h; Max 200 mg/24 h. 09/19 completed Not Available Not Available Not Available prednisone 20 mg tablet 12/24 completed Not Available Not Available Not Available dexamethaso ne 6 mg tablet 03/04 completed Not Available Not Available Not Available naproxen 250 mg tablet Take 1 tablet PO every 12 hours as needed for headaches . Doses should be taken with food 06/21 completed Not Available Not Available Not Available oxycodone 5 mg/5 mL oral solution 07/06 completed Not Available Not Available Not Available penicillin V potassium 500 mg tablet 03/04 completed Not Available Not Available Not Available metronidazo le 500 mg tablet TAKE 1 TABLET BY MOUTH TWICE DAILY FOR 7 DAYS 04/18 completed Not Available Not Available Not Available ciprofloxac in 500 mg tablet Take 1 tablet every 12 hours by oral route for 7 days. 07/31 completed Not Available Not Available Not Available sulfamethox azole 800 mg-trimetho prim 160 mg tablet TAKE 1 TABLET BY MOUTH EVERY 12 HOURS FOR 3 DAYS 01/11 completed Not Available Not Available Not Available amoxicillin 875 mg tablet TAKE 1 TABLET BY MOUTH TWICE A DAY FOR 10 DAYS 07/06 completed Not Available Not Available Not Available dexamethaso ne 4 mg tablet 07/06 completed Not Available Not Available Not Available amoxicillin 400 mg/5 mL oral suspension 12/28 completed Not Available Not Available Not Available ibuprofen 600 mg tablet Take 1 tablet every 8 hours by oral route as needed. 03/19 completed Not Available Not Available Not Available ondansetron 4 mg disintegrat ing tablet PLEASE SEE ATTACHED FOR DETAILED DIRECTION S 07/06 completed Not Available Not Available Not Available medroxyprog esterone 150 mg/mL intramuscul ar suspension ADMINISTE R 1 ML IN THE MUSCLE EVERY 3 MONTHS active Not Available Not Available No t Available adapalene 0.1 % topical gel APPLY PEA SIZED AMOUNT EXTERNALL Y TO FACE DAILY AT BEDTIME 09/04 completed Not Available Not Available Not Available naproxen 500 mg tablet TAKE 1 TABLET BY MOUTH TWICE DAILY 09/19 completed Not Available Not Available Not Available amoxicillin 875 mg-potassiu m clavulanate 125 mg tablet 03/04 completed Not Available Not Available Not Available Children's Ibuprofen 100 mg/5 mL oral suspension 07/06 completed Not Available Not Available Not Available azithromyci n 500 mg tablet TAKE 2 TABLETS BY MOUTH EVERY DAY FOR 1 DAY 10/28 completed Not Available Not Available Not Available nitrofurant oin monohydrate /macrocryst als 100 mg capsule Take 1 capsule twice a day by oral route for 5 days. 04/18 completed Not Available Not Available Not Available Excedrin Migraine OTC 09/19 completed Not Available Not Available Not Available multivitami n active Not Available Not Available Not Available doxylamine 10 mg-pyridoxi ne (vit B6) 10 mg tablet,nicole yed release TAKE 2 TABLETS BY MOUTH TWICE DAILY NEEDED 11/06 completed Not Available Not Available Not Available Venessa 0.35 mg tablet 11/06 completed Not Available Not Available Not Available Children's Acetaminoph en 160 mg/5 mL oral suspension 07/06 completed Not Available Not Available Not Available Lo Loestrin Fe 1 mg-10 mcg (24)/10 mcg (2) tablet Take 1 tablet every day by oral route. 01/06 completed Not Available Not Available Not Available spinosad 0.9 % topical suspension Soak hair with suspensio n, leave on for 10 minutes. Rinse off, and use a fine-toot hed comb to remove lice, and nits. May repeat in 2 weeks 03/15 completed Not Available Not Available Not Available Tamiflu 6 mg/mL oral suspension 12/28 completed Not Available Not Available Not Available 28 mg iron-800 mcg tablet TAKE 1 TABLET BY MOUTH EVERY DAY 11/06 completed Not Available Not Available Not Available Vitamin 27 mg iron-800 mcg tablet Take 1 tablet every day by oral route. 11/06 completed Not Available Not Available Not Available Blisovi Fe 07/01 (28) 1 mg-20 mcg (21)/75 mg (7) tablet TAKE 1 TABLET BY MOUTH EVERY DAY active Not Available Not Available No t Available riboflavin (vitamin B2) 400 mg tablet Take 1 tablet by oral route for 30 days. 09/19 completed Not Available Not Available Not Available Slynd 4 mg (28) tablet Take 1 tablet every day by oral route. 09/19 completed Not Available Not Available Not Available Fluzone Quad (PF) 60 mcg (15 mcg x 4)/0.5 mL IM syringe 03/04 completed Not Available Not Available Not Available Vitals Date Recorded Body height Body mass index (BMI) Body mass index (BMI) Percentile per age and sex Body weight Systolic blood pressure Diastolic blood pressure Provider Name and Address Organization Details Last Updated DateTime 4 162.56 cm 22.5 kg/m2 61 % 34102.8 9 g 106 mm[Hg] 74 mm[Hg] TIFFANIE Marcano [place] - [facility] 4 11:24:05 Date Recorded Body height Body mass index (BMI) Body mass index (BMI) Percentile per age and sex Body weight Heart rate Systolic blood pressure Diastolic blood pressure Provider Name and Address Organization Details Last Updated DateTime 4 162.56 cm 22.5 kg/m2 61 % 51296.8 9 g 79 /min 112 mm[Hg] 74 mm[Hg] TIFFANIE Marcano [place] - [facility] 4 14:20:20 Date Recorded Body height Body mass index (BMI) Body mass index (BMI) Percentile per age and sex Body weight Systolic blood pressure Diastolic blood pressure Provider Name and Address Organization Details Last Updated DateTime 4 162.56 cm 22 kg/m2 55 % 99374.8 2 g 112 mm[Hg] 72 mm[Hg] Gosia Costa Joseph [facility] 4 12:01:06 Date Recorded Body height Body mass index (BMI) Percentile per age and sex Body mass index (BMI) Body weight Systolic blood pressure Diastolic blood pressure Provider Name and Address Organization Details Last Updated DateTime 4 162.56 cm 63 % 22.8 kg/m2 28530.7 9 g 118 mm[Hg] 85 mm[Hg] Gosia Costa Joseph [facility] 4 12:04:57 Date Recorded Body height Body mass index (BMI) Body mass index (BMI) Percentile per age and sex Body weight Systolic blood pressure Diastolic blood pressure Provider Name and Address Organization Details Last Updated DateTime 4 162.56 cm 24 kg/m2 73 % 82600.2 1 g 116 mm[Hg] 76 mm[Hg] Lisa Barclay MA [facility] 4 12:00:47 Social History Question Answer Notes LastModified by Organizat ion Details LastModified Time Tobacco Smoking Status Never Smoker Carmen Penn MA [facility], [facility] 10/14/2015 15:04:54 Do You Have An Advance Directive? No Information not available 10/28/2022 What Is Your Level Of Alcohol Consumption? None Information not available 11/24/2021 Animal Exposure? No Informat ion not available 10/28/2022 Do You Wear A Helmet When Biking? No Information not available 03/15/2021 Are You Or Have You Been Involved With Bullying? No Information not available 03/15/2021 What Is Your Level Of Caffeine Consumption? Moderate Information not available 11/24/2021 In The 14 Days Before Symptom Onset, Have You Had Close Contact With A Laboratory-confi rmed COVID-19 While That Case Was Ill? No Information not available 03/15/2021 In The 14 Days Before Symptom Onset, Have You Had Close Contact With A Person Who Is Under Investigation For COVID-19 While That Person Was Ill? No Information not available 03/15/2021 Have You Been To An Area Known To Be High Risk For COVID-19? No Information not available 03/15/2021 Are You Currently Employed? Yes Information not available 10/28/2022 What Type Of Diet Are You Following? REGULAR Information not available 10/14/2015 Do You Or Have You Ever Used E-cigarettes Or Vape? Never Used Electronic Cigarettes Information not available 03/04/2020 What Is Your Occupation? [employer] Information not available 10/28/2022 Have There Been Any Changes To Your Family Or Social Situation? No Information not available 10/14/2015 Are There Any Guns Present In Your Home? No Information not available 10/14/2015 What Is Your Home Situation? Father Information not available 10/28/2022 Do You Use Insect Repellent Routinely? Yes Information not available 10/14/2015 Car Seat Type Or Seat Belt? Seat Belt Information not available 10/14/2015 Parent Involvement? Mom Not Involved Information not available 10/28/2022 Riding In Car Front Seat? Yes Information not available 10/14/2015 What Was The Date Of Your Most Recent Tobacco Screening? 04/17/2024 Information not available 04/17/2024 What Is Your Parents' Marital Status? Information not available 10/14/2015 Pool Exposure No Information not available 10/14/2015 What Is Your Relationship Status? Single Information not available 10/28/2022 Do You Use Your Seat Belt Or Car Seat Routinely? Yes Information not available 03/15/2021 Are You Sexually Active? Yes Information not available 10/28/2022 Do You Have Any Siblings? 2 Boys 2 Girls Information not available 10/14/2015 Do You Have Smoke And Carbon Monoxide Detectors In Your Home? Yes Information not available 10/14/2015 Are You Passively Exposed To Smoke? No Information not available 10/14/2015 Do You Or Have You Ever Used Smokeless Tobacco? Never Used Smokeless Tobacco Information not available 03/04/2020 How Much Tobacco Do You Smoke? No Information not available 06/21/2018 Do You Participate In Social Media? Yes Information not available 03/15/2021 What Types Of Sporting Activities Do You Participate In? Cheerleader Information not available 10/14/2015 Do You Use Any Illicit Or Recreational Drugs? Yes Marijuana Information not available 10/28/2022 Do You Use Sunscreen Routinely? Yes Information not available 10/14/2015 Has Tobacco Cessation Counseling Been Provided? Yes Information not available 10/28/2022 On What Date Was Tobacco Cessation Counseling Provided? 04/17/2024 Information not available 04/17/2024 How Many Years Have You Smoked Tobacco? 0 Information not available 06/21/2018 Year In School 5 Informatio n not available 10/14/2015 Do You Or Have You Ever Used Any Other Forms Of Tobacco Or Nicotine? No Information not available 10/28/2022 Sex: Female Functional Status Question Answer Note LastModified by Organization D etails LastModified Time What is your exercise level? Moderate Information not available 10/14/2015 Mental Status None recorded. Family History Relationship Description Onset Age of this Age Resolved Age Notes LastModified by Organization Details LastModified Time Father No current problems or disability [email or web address] Not available 09/10 16:54:50 Father History of migraine [email or web address] available 2022 09:09:33 Mother No current problems or disability [email or web address] Not available 09/10 16:54:50 Maternal Grandmother Malignant tumor of breast [email or web address] Not available 10/28 15:07:54 Notes:No new reported 3 Medical History Condition Response Other N High Blood Pressure N Blood Diseases N Breast Cancer N Depression N Blood Clots N Lung Disease N Developmental or Behavioral Disorders N Breast Problem N Premature N Anesthesia Complications N Headaches/Migraines Y Anxiety Disorder N Muscle, Joint, or Bone Problems N Vision or Eye Problems N Head Injury/Concussion N Polyps N Infertility N Acid Reflux (GERD) N Cancer N ADHD N Endometriosis N Bladder or Kidney Problems N High Cholesterol N Liver Disease N Headaches N Ear or Hearing Problems N Thyroid Problems N Kidney or Bladder Problems N GI Problems N Acne N Skin Problems N Eating Disorder N Anemia N Constipation N Ovarian Cancer N Diabetes N Bedwetting N Blood Transfusions N Seizures/Epilepsy N Heart Problems/Murmur N Abuse/Domestic Violence N Allergies N Asthma N Hepatitis N Heart Disease N Pre-Eclampsia N Osteoporosis N Chicken Pox N Autism Spectrum Disorder (ASD) N Gynecological History Statement/Question Response Flow Light Frequency of Cycle (Q days) 28 Date of LMP 04/10/2023 Sexually Active? Y Menses Monthly N STIs/STDs Y Sexual Problems? N Duration of Flow (days) 9 Current Control Method Depo-Guide Cruise a Age at Menarche 11 LMP Approximate Obstetrics History GPAL:G 1 P 0 0 1 0 Type Value Induced 1 Total 1 Immunizations Vaccine Type Date Status Note Provider Nam e and Address Organization Details Recorded Time Tdap 6 completed Not Available [facility] 06/29/2019 02:29:58 HPV9 6 completed Not Available [facility] 06/29/2019 02:32:04 Hep A, ped/adol, 2 dose 6 completed Not Available [facility] 06/29/2019 02:44:47 Meningococcal MCV4O 6 completed Not Available [facility] 06/29/2019 02:39:51 Influenza, split virus, quadrivalent, preservative 0 completed Not Available [facility] 02/25/2023 00:47:24 HPV9 6 completed Not Available [facility] 06/29/2019 02:32:04 MMRV 7 completed Not Available [facility] 02/25/2023 00:47:24 pneumococcal conjugate PCV 7 5 completed Not Available [facility] 02/25/2023 00:47:24 pneumococcal conjugate PCV 7 5 completed Not Available [facility] 02/25/2023 00:47:24 DTaP-IPV 0 completed Not Available [facility] 02/25/2023 00:47:24 influenza, split (incl. purified surface antigen) 8 completed Not Available [facility] 02/25/2023 00:47:24 DTaP-Hep B-IPV 5 completed Not Available [facility] 02/25/2023 00:47:25 DTaP-Hep B-IPV 5 completed Not Available [facility] 02/25/2023 00:47:25 DTaP-Hep B-IPV 5 completed Not Available [facility] 02/25/2023 00:47:25 HPV9 7 completed Not Available [facility] 06/29/2019 02:46:03 Influenza, split virus, quadrivalent, PF 9 completed Not Available [facility] 06/29/2019 02:44:21 meningococcal MCV4P 1 completed Leticia Yoder MD Attn: Accounting[address] [place], [address], [place] - [facility] 03/15/2021 13:52:28 meningococcal B, OMV 1 completed Leticia Yoder MD Attn: Accounting[address] [place], [address], [place] [facility] 03/15/2021 13:52:28 Influenza, split virus, quadrivalent, PF 1 completed Leticia Yoder MD Attn: Accounting[address] [place], [address], [place] [facility] 03/15/2021 13:52:28 Hep B, adolescent or pediatric 5 completed Not Available [facility] 02/25/2023 00:47:24 IPV 5 completed Not Available [facility] 02/25/2023 00:47:24 Hib, unspecified formulation 7 completed Not Available [facility] 02/25/2023 00:47:24 varicella 0 completed Not Available [facility] 02/25/2023 00:47:24 DTaP 5 completed Not Available [facility] 02/25/2023 00:47:25 pneumococcal conjugate PCV 7 5 completed Not Available [facility] 02/25/2023 00:47:24 DTaP 5 completed Not Available [facility] 02/25/2023 00:47:25 DTaP 5 completed Not Available [facility] 02/25/2023 00:47:25 IPV 5 completed Not Available [facility] 02/25/2023 00:47:24 MMR 0 completed Not Available [facility] 02/25/2023 00:47:24 influenza, unspecified formulation 7 completed Not Available [facility] 02/25/2023 00:47:24 varicella 7 completed Not Available [facility] 02/25/2023 00:47:24 Hib, unspecified formulation 5 completed Not Available [facility] 02/25/2023 00:47:24 DTaP 7 completed Not Available [facility] 02/25/2023 00:47:25 Hep B, adolescent or pediatric 5 completed Not Available [facility] 02/25/2023 00:47:24 Hep B, adolescent or pediatric 5 completed Not Available [facility] 02/25/2023 00:47:25 influenza, unspecified formulation 8 completed Not Available [facility] 02/25/2023 00:47:24 MMR 7 completed Not Available [facility] 02/25/2023 00:47:24 pneumococcal conjugate PCV 7 7 completed Not Available [facility] 02/25/2023 00:47:24 Hep A, ped/adol, 2 dose 9 completed Not Available [facility] 02/25/2023 00:47:25 DTaP 0 completed Not Available [facility] 02/25/2023 00:47:25 IPV 0 completed Not Available [facility] 02/25/2023 00:47:24 Hep B, adolescent or pediatric 5 completed Not Available [facility] 02/25/2023 00:47:24 Hib, unspecified formulation 5 completed Not Available [facility] 02/25/2023 00:47:24 Past Encounters Encounter ID Performer Location Encounter Start Date Encounter Closed Date Diagnosis/Indication Diagnosis SNOMED-CT Code Diagnosis ICD10 Code [id number] Venessa Hussein Mynor (Peds) [address] [place] [address] 08/08/2014 16:02:15 08/08/2014 17:29:05 Pyogenic granuloma [id number] [id number] MD Mynor Araujo (Peds) [address] [place] [address] 10/14/2015 14:43:53 10/14/2015 16:58:38 Well child 831254716 Z00.129 [id number] MARILUZ Sesay (Peds) [address] [place] [address] 02/09/2016 15:32:42 02/10/2016 09:40:31 Well child 114939645 Z00.606 [id number] MD Mynor Araujo (Peds) [address] [place] [address] 06/14/2016 15:26:19 06/17/2016 17:32:37 Active or passive immunization 117566205 Z23 [id number] MD Mynor Araujo (Peds) [address] [place] [address] 03/02/2017 16:03:44 03/02/2017 18:07:42 Sprain of right wrist 3064068138 4711470 S63.501D Hypertroph y of tonsils 57087756 J35.1 [id number] MD Mynor Araujo 14 PEDS [address] [facility] [place] [address] 12/28/2017 10:23:09 01/03/2018 09:45:12 Well child 427453906 Z00.129 Multiple joint pain 3567 8005 M25.50 Headache 52208765 R51 Bilateral earache 872637 003 H92.03 Diet education 80603910 Z71.3 Exercises education, guidance, and counseling 900810016 Z71.82 Normal weight 45786755 Z 68.52 [id number] MD Mynor Araujo 14 PEDS [address] [facility] [place] [address] 06/21/2018 14:58:15 06/22/2018 08:33:26 Has a sore throat 254763114 J02.9 Follow-up visit 05512480 9 Z09 [id number] KRISTI Obando 14 OB 4 [facility] [place] [address] 09/10/2018 16:45:31 09/11/2018 08:43:51 Dysmenorrhea 382566947 N94.6 [id number] Leticia moreno MD Lavina 14 PEDS [address] [facility] [place] [address] 09/12/2018 15:15:56 09/13/2018 10:05:11 Well child 443313381 Z00.129 Acne 25689899 L70.9 Diet education 73929749 Z71.3 Exercises education, guidance, and counseling 215453050 Z71.82 Normal bod y mass index 76669491 Z68.52 [id number] KRISTI Obando 14 OB [address] [facility] [place] [address] 12/24/2018 11:13:23 12/25/2018 08:51:05 Dysmenorrhea 969092555 N94.6 [id number] Liz Dash [facility] Angel 14 OB [address] [facility] [place] [address] 02/19/2019 15:59:38 02/20/2019 08:53:09 Contraception care management 207032760 Z30.9 At [facility] risk of urinary tract infection 510304366 Z91.89 Venereal d isease screening 973291890 Z11.3 Uses depot contraception 328545314 Z30.924 [id number] KRISTI Obando 14 OB [address] [facility] [place] [address] 05/15/2019 16:10:58 05/16/2019 08:42:45 Surveillance of depot contraception done 7767917943 9104 Z30.42 Dysuria 26340143 R30.9 Vaginal discharge 862982 006 N89.8 Dysmenorrhea 512319007 N 94.6 [id number] KRISTI Obando 14 OB 4 [facility] [place] [address] 08/12/2019 15:08:59 08/13/2019 10:34:51 Initial prescription of oral contraception 972404510 Z30.955 [id number] MD Mynor Araujo [address] [place] [address] 09/05/2019 11:54:08 09/06/2019 10:56:08 Recurrent acute tonsillitis 095606695 J03.91 [id number] KRISTI Obando 14 OB [address] [facility] [place] [address] 03/04/2020 15:13:28 03/05/2020 11:13:44 Menstrual period late 33288267 N92.6 Contracept ion care management 723465757 Z30.9 Contraception care 78816 5005 Z30.40 [id number] MD Mynor Araujo [address] [place] [address] 03/19/2020 10:34:01 03/20/2020 13:27:43 Headache 42485672 R51.9 [id number] MD Mynor Araujo [address] [place] [address] 03/26/2020 11:11:49 03/27/2020 13:28:31 Has a sore throat 813345076 J02.9 [id number] MD Mynor Araujo [address] [place] [address] 07/06/2020 14:01:34 07/07/2020 13:53:45 Pediculosis capitis 45318895 B85.0 [id number] MD Mynor Araujo [address] [place] [address] 03/15/2021 09:54:46 03/16/2021 13:31:03 Recurrent dislocation of shoulder region 16240080 M24.419 Not up to date with immunizations 969589552 Z28.3 [id number] KRISTI Obando 14 OB [address] [facility] [place] [address] 11/24/2021 16:34:43 11/25/2021 08:02:37 Contraception care management 814451960 Z30.9 High risk sexual behavior 762343515 Z72.51 [id number] MD Mynor Wood 14 IM [address] [facility] [place] [address] 10/28/2022 14:48:06 11/02/2022 10:40:15 Smoker 33486868 F17.200 Uses oral contraception 0983896 Z30.41 [id number] MD Mynor Wood 14 IM 4 [facility] [place] [address] 01/06/2023 14:29:49 01/09/2023 15:14:36 Dysuria 83182165 R30.0 Venereal d isease screening 200893305 Z11.3 HIV screening 593110592 Z11.4 Hepatitis C screening 41 6049538 Z11.59 [id number] KRISTI Obando 14 OB 4 [facility] [place] [address] 01/11/2023 11:56:17 01/12/2023 11:24:00 Contraception care management 122665904 Z30.9 Bacterial vaginosis 4197 99560 N76.0 [id number] MD Mynor Palacios 14 IM 4 [facility] [place] [address] 04/18/2023 08:44:58 05/02/2023 10:54:41 Migraine without aura 83962035 G43.829 [id number] MD Mynor Palacios 14 IM 4 [facility] [place] [address] 05/30/2023 11:52:34 06/08/2023 11:27:56 Acute urinary tract infection 079651067 N39.0 Pain in pelvis 33056462 R10.2 [id number] KRISTI Obando 14 OB 4 [facility] [place] [address] 07/31/2023 11:16:37 08/01/2023 09:09:23 Contraception care management 795531132 Z30.9 Missed period 00626042 N 92.5 [id number] KRISTI Obando 14 OB 4 [facility] [place] [address] 09/20/2023 14:13:10 09/21/2023 08:54:55 test positive 634608178 Z32.01 Early stag e of 363016022 Z34.90 Morning sickness 5668263 6 O21.9 [id number] KRISTI Obando 14 OB [address] [facility] [place] [address] 11/07/2023 11:49:09 11/08/2023 08:28:52 Contraception care management 817180286 Z30.9 Initiation of depot contraception done 9443586457 40983 Z30.013 High risk sexual behavior 764733612 Z72.51 [id number] KRISTI Obando 14 OB [address] [facility] [place] [address] 01/31/2024 11:12:36 02/02/2024 09:10:55 Surveillance of depot contraception done 5254705706 9104 Z30.42 [id number] KRISTI Obando 14 OB [address] [facility] [place] [address] 04/17/2024 11:45:04 04/19/2024 10:48:39 Contraception care management 825069927 Z30.9 Health Concerns Section Related Observation LastModified by Organization Detai ls LastModified Time None Recorded Concern Status LastModified by Organization Details LastModified Time None Recorded Advance Directives Directive N: Payers Encounter Date Sequence Insurance Name Policy Number Policy Olson Covered Member ID Olson Member ID Guarantor Name 07/31/2023 2 [place] [facility] E Steven [id number] [facility] 07/31/2023 1 UMR (PPO) [id number] Asif E Steven [id number] [facility] 09/20/2023 2 [place] [facility] E Steven [id number] [facility] 09/20/2023 1 UMR (PPO) [id number] Asif E Steven [id number] [facility] 11/07/2023 2 [place] [facility] E Steven [id number] [facility] 11/07/2023 1 UMR (PPO) [id number] Asif E Steven [id number] Juliet Anderson 01/31/2024 2 [place] [facility] Jerrod Harris [id number] Juliet Anderson 01/31/2024 1 UMR (PPO) [id number] Asif Harris [id number] Juliet Anderson 04/17/2024 2 [place] [facility] Jerrod Harris [id number] Juliet Anderson 04/17/2024 1 UMR (PPO) [id number] Asif Harris [id number] Juliet Anderson Notes Date Note Type Note Provider Name and Address Organization Details Recorded Time 07/31/2023 text/html Pt is here for follow up on slynd for contraception. Pt reports menses stopped with POP. Pt reports working well for her. Pt reports ran out last month. Pt wanting refills. Pt denies any complaints. KRISTI Obando Attn: [address] [place], [address], [facility] 07/31/2023 11:55:49 09/20/2023 text/html Pt is here for positive test at home. Pt reports having morning sickness but able to tolerate bland diet. Pt denies any other complaints. KRISTI Obando Attn: [address] [place], [address], [facility] 09/20/2023 14:56:23 11/07/2023 text/html Pt is here for control discussion. Pt wanting to restart depo. Pt on menses today. Pt would like screening for gonorrhea, chlamydia and trich off urine. pt denies known exposure and denies any symptoms. pt denies any complaints Pt had medical termination on 09/28/23. pt denies any complications from that. Pt denies being sexually active since before termination. KRISTI Obando Attn: [address] [place], [address], [facility] 11/07/2023 12:53:50 01/31/2024 text/html Pt is here for d epo injection for contraception. Pt denies any complaints. KRISTI Obando Attn: [address]ing,[address] [facility], [place], [address], [facility] 01/31/2024 12:39:29 04/17/2024 text/html Pt is here for d epo but she is wanting to switch back to SHARYN. Pt does not like getting injection every 3 month. Pt denies any other concerns. KRISTI Obando Attn: Accounting,[address] [facility], [place], [address], [facility] 04/17/2024 12:36:21 OBGyn Episode No OBEpisode recorded.
--- OUTSIDE RECORDS SUMMARY | 2024-05-29 23:32 | XMS_ITS | Encounter Summary ---
Author Organization [facility] Care Team Providers Care Jewelry Drill Operator Name Role Phone Leticia Yoder MD Primary Care Provider Encounter Details Date Type Department Care Team (Latest Contact Info) Description 03/09/2021 Travel Social History Tobacco Use Types Packs/Day [...] AM CDT documented as of this encounter Plan of Treatment Not on file documented as of this encounter Visit Diagnoses Not on filedocumented in this encounter Care Teams Jewelry Drill Operator Relationship Specialty Start Date End Date Leticia Yoder MD [address] [facility] [address] [place] [address] PCP - General Pediatrics 03/09/21 documented as of this encounter
--- OUTSIDE RECORDS SUMMARY | 2024-05-29 23:32 | XMS_ITS | Encounter Summary ---
Author Organization [facility] Address [address] [place] [address] Care Team Providers Care Fitter/Welder Name Role Phone Leticia Yoder MD Primary Care Provider Reason for Visit * Auth/Cert - Closed Specialty Diagnoses / Procedures Referred By Aj guerrero Referred To Contact Diagnoses Unspecified disorder of skin and subcutaneous tissue Unspecified disorder of skin and subcutaneous tissue Procedures EXCISION NEVUS FACE/SCALP REPAIR, INTERMEDIATE, FACE/EARS/EYELIDS/NOSE/ LIPS 2.5CM < Referral ID Status Reason Start Date Expiration Date Visits Re quested Visits Authorized [id number] Closed 1 1 Encounter Details Date Type Department Care Team (Late st Contact Info) Description 03/25/2015 8:14 AM CDT - 03/25/2015 8:55 AM CDT Hospital Encounter [address] [address] Dandy Guzmán MD Need updated address Surgery General Discharge [...] Pressure - - Pulse - - Temperature 37.1 ??C (98.8 ??F) 03/25/2015 8:24 AM CD T Respiratory Rate - - Oxygen Saturation - - Inhaled Oxygen Concentration - - Weight 38.9 kg (85 lb 12.1 oz) 03/25/2015 8:24 A M CDT Height 149.2 cm (4' 10.74 ) 03/25/2015 8:24 AM C DT Body Mass Index 17.47 03/25/2015 8:24 AM CDT Body Mass Index Percentile 55.71% 03/25/2015 8:2 4 AM CDT Growth Chart: [facility] (Girls, 2- 20 Years) documented in this encounter Progress Notes * Kassandra Valdez APRN-CNP - 03/25/2015 8:56 AM CDT 0830--Jerrod is at 9 yr female who is scheduled for surgery with Dr Guzmán today at 0900. She ate cereal and milk at 0530 this am. Supposed to be NPO after 12 mn. Explained that eating is a anesthesia safety issue and we would not be able to have procedure today.discussed no solids or milk after 12mnmay have clears of apple juice , water or sprite until 3 hours before procedure. Mom verbalizes understanding of anesthesia risk, but states that her understanding was that this was 15 minutes under local anesthesia. She waited downstairs thinking that it would be done in Dr Guzmán's office, but then was sent to [facility]. Mom wants to know if it could be done under local. Explained that usually with children that was not the case, but she can speak with Plastic service. Plastic Surgery Resident Dr Jon notified and in to speak with mom. Mom then stated that she had not got any call or email and asked what number we called. Verified inchart that message left on 03/185 on [phone] and email with instructions sent to [email or web address]. Also charted call to phone [phone] (Dad) and gave arrival instructions and asked to call back hospital. Mom states that those are correct numbers and email but that she did not receiveinformation. Then states that you are being too heavy . Dr Guzmán aware and surgery rescheduled for next week documented in this encounter H&P Notes * Mendez Jon MD - 03/25/2015 8:57 AM CDT PLASTIC SURGERY Preoperative H&P 03/25/2015 HISTORY OF PRESENT ILLNESS Jerrod Harris is 9 y.o. female here for evaluation of right cheek lesion. Plastic Surgery History ?? 08/26/14: Plastic surgery clinic visit regarding right cheek lesion ? The lesion is located on the face. The lesion was described by the patient/guardian as ??? increasing in size since it was first noted about 4-6 months ago. Does not bleed or cause pain. No memory ofassociated trauma or injury. No similar lesions anywhere else. The lesion was not present at . The age at which the lesion was first noticed was 8 years old.. The lesion was first noticed by thepatient;patient's mother. The lesion's changes over time can be described as increasing in size.. The lesion's symptoms are none. The symptoms affected by the time of day are none.. Symptoms are also affected by none.. The lesion affects the appearance and social interactions of the child by being an obvious pedunculated lesion of the right cheek.. Regarding this lesion, the patient has not seen a sterilisation technician. PAST MEDICAL AND SURGICAL HISTORY No significant previous medical or surgical history. No Known Allergies No current outpatient prescriptions on file. FAMILY HISTORY Family history was reviewed and did not contain significant diseases that affected the current chief complaint. SOCIAL HISTORY Has a family household. Primary language is Bermudian. REVIEW OF SYSTEMS Constitutional: no fevers, chills Craniomaxillofacial: as above Ophthalmologic: no complaints Otolaryngologic: no complaints Cardiovascular: no complaints Respiratory: no complaints Gastrointestinal: no complaints Genitourinary: no complaints Musculoskeletal: no complaints Neurologic: no complaints Psychiatric: no complaints Dermatologic: as above PHYSICAL EXAM General: alert, interactive, no acute distress Head [...] This lesion is at risk for bleeding. -Patient ate this morning at 0530 AM. She will need general anesthesia for the procedure or at least sedation. She cannot tolerated local. -We will reschedule. Mendez Jon MD 03/25/2015 9:00 AM documented in this encounter Plan of Treatment Not on file documented as of this encounter Visit Diagnoses Not on filedocumented in this encounter Care Teams Fitter/Welder Relationship Specialty Start Date End Date Leticia Yoder MD PCP - General 08/14/14 documented as of this encounter
--- OUTSIDE RECORDS SUMMARY | 2024-05-29 23:32 | XMS_ITS | Encounter Summary ---
Author Organization [facility] Address [address] [place] [address] Phone Care Team Providers Care Parking Inspector Name Role Phone Leticia Yoder MD Primary Care Provider Reason for Visit * Reason Comments Headache Encounter Details Date Type Department Care Team ([facility] Contact Info) Description 02/24/2023 5:05 PM CDT - 02/24/2023 8:46 PM CDT Emergency [facility] Emergency [address] [place] [address] Sravan Booth, PAC [address] [place] [address] Migraine Discharge Disposition: Discharged to home or Selfcare [...] Exposure Response Date Recorded In the last 10 days, have yo u been in contact with someone who was confirmed or suspected to have Coronavirus/COVID-19? No / Unsure 02/24/2023 4:59 PM CDT documented as of this encounter [...] 02/24/2023 4:5 9 PM CDT [place]: [facility] [place]Girls, 2- 20 Years[place] documented in this encounter Discharge Instructions * Attachments The following attachments cannot be sent through Care Everywhere. * Migraine Headache [id number] ([place]vian) documented in this encounter Medications at Time of Discharge ketorolac (TORADOL) 10 MG Tablet Take 1 Tablet by mouth every 6 hours as needed for Moderate or more severe pain. 20 Tablet 02/24/2023 metoclopramide (REGLAN) 10 MG Tablet Take 1 Tablet by mouth 4 times daily as needed for Nausea - 1st line. 10 Tablet 02/24/2023 documented as of this encounter ED Notes * Stewart Mancia RN - 02/24/2023 8:44 PM CDT Patient discharged. Discharge instructions and patient educational material reviewed with patient; questions and concerns addressed; patient verbalizes understanding, using teach back. Patient was given 2 prescriptions. Patient discharged per ambulatory mode with self as responsible libertarian. D/C'ed with Charanjit cath intact. * Stewart Mancia RN - 02/24/2023 8:15 PM CDT Patient is resting in room with call light at bedside. Patient informed about wait time and verbalizes understanding. Patient denies needs at this time and verbalizes understanding that RN will complete hourly rounding. * Stewart Mancia RN - 02/24/2023 7:15 PM CDT Pt medicated per provider orders. Pt educated on intended effects and side effects of medication and verbalized understanding, able to provide teach back of education. * Stewart Mancia RN - 02/24/2023 7:00 PM CDT Patient assessed and peripheral IV inserted * Sravan Booth PAC - 02/24/2023 6:52 PM CDT Chief Complaint Patient presents with ??? Headache Jerrod Harris is a 17 y.o. female who presents to the ED c/o migraine starting upon waking this morning at 0900. Patient took tylenol and nap without improvement. No head trauma. No neck pain. No neuro changes. History reviewed. No pertinent past medical history. No current facility-administered medications for this encounter. Current Outpatient Medications Medication Sig Dispense Refill ??? ketorolac (TORADOL) 10 MG Tablet Take 1 Tablet by mouth every 6 hours as needed for Moderate ormore severe pain. 20 Tablet 0 ??? metoclopramide (REGLAN) 10 MG Tablet Take 1 Tablet by mouth 4 times daily as needed for Nausea - 1st line. 10 Tablet 0 No Known Allergies History reviewed. [...] file Tobacco Use ??? Smoking status: Never ??? Smokeless tobacco: Never Vaping Use ??? Vaping Use: Never used Substance and Sexual Activity ??? Alcohol use: Never ??? Drug use: Never ??? Sexual activity: Not on file Other Topics Concern ??? Not on file Social History Narrative ??? Not on file BP (!) 90/56 Pulse (!) 51 Temp 97.8 ??F (36.6 ??C) (Tympanic) Resp 18 Ht 5' 3 (1.6 m) Wt126 lb (57.2 kg) LMP 02/15/2023 SpO2 99% BMI 22.32 kg/m?? Review of Systems Constitutional: Negative for chills, fatigue and fever. HENT: Negative for congestion and sore throat. Respiratory: Negative for cough, chest tightness and shortness of breath. Cardiovascular: Negative for chest pain. Gastrointestinal: Negative for abdominal pain, diarrhea, nausea and vomiting. Genitourinary: Negative for dysuria, frequency, hematuria and urgency. Musculoskeletal: Negative for arthralgias, back pain and myalgias. Skin: Negative for color change and wound. Neurological: Positive for headaches. Negative for dizziness, weakness, light- headedness and numbness. All other systems reviewed and are negative. Physical Exam Vitals and nursing note reviewed. Constitutional: General: She is not in acute distress. Appearance: She is well-developed. She is not diaphoretic. HENT: Head: Normocephalic and atraumatic. Eyes: Extraocular Movements: Extraocular movements intact. Pupils: Pupils are equal, round, and reactive to light. Neck: Thyroid: No thyromegaly. Cardiovascular: Rate and Rhythm: Normal rate and regular rhythm. Heart sounds: Normal heart sounds. No murmur heard. Pulmonary: Effort: Pulmonary effort is normal. No respiratory distress. Breath sounds: Normal breath sounds. No wheezing, rhonchi or rales. Abdominal: General: Bowel sounds are normal. There is no distension. Palpations: Abdomen is soft. Tenderness: There is no abdominal tenderness. Musculoskeletal: Cervical back: Normal range of motion and neck supple. Skin: General: Skin is warm and dry. Coloration: Skin is not pale. Findings: No erythema or rash. Neurological: Mental Status: She is alert and oriented to person, place, and time. GCS: GCS eye subscore is 4. GCS verbal subscore is 5. GCS motor subscore is 6. Psychiatric: Behavior: Behavior normal. No orders to display Procedures No results found for this or any previous visit. Imaging Results None Medical Decision Making See HPI. Typical migraine with history of migraines. MCDANIELS improvement with migraine cocktail. Will continue toradol and reglan outpatient. PCP follow up in 1-2 days. Return to ED for worsening sxs. Clinical Impression 1. Migraine Disposition: Discharged The patient remained stable throughout their ED stay. My clinical impression was discussed with thepatient/family. Labs and radiology results were reviewed with them. I gave them the opportunity to ask questions, and addressed them as completely as possible given the information available at present. The therapeutic plan was discussed, advised to take medications as instructed, instructions weregiven and the importance of primary care follow up was stressed and encouraged. The patient/family voiced understanding of the plan, indications to return, and the need for follow up. Cosigned by Travis Lovett MD at 02/25/2023 5:59 AM CDT * Sabina Sigala RN - 02/24/2023 6:38 PM CDT Report given to KEVIN Branch. * Sabina Sigala RN - 02/24/2023 6:37 PM CDT Pt medicated per provider orders. Pt educated on intended effects and side effects of medication and verbalized understanding, able to provide teach back of education. * Evangelina Conde RN - 02/24/2023 5:03 PM CDT Patient reports headache since waking this morning at 0900. Denies N/V. documented in this encounter Plan of Treatment Not on file documented as of this encounter Visit Diagnoses Diagnosis Migraine- Primary Migraine, unspecified, without mention of intractable migraine without mention of status migrainosus documented in this encounter Administered Medications Inactive Administered Medications - up to 3 most recent administrations Medication Order MAR Action Action Date Dose Rate Site 0.9 % sodium chloride solution at 999 mL/hr, Intravenous, ONCE, 1 dose, On Mon02/24/23 at 1929 New Bag 02/24/2023 7:15 PM CDT 999 mL/hr dexamethasone (DECADRON) injection 10 mg 10 mg, Intravenous, ONCE, 1 dose, On Mon02/24/23 at 1929 Given 02/24/2023 7:16 PM CDT 10 mg ketorolac (TORADOL) injection 30 mg 30 mg, Intramuscular, ONCE, 1 dose, On Mon02/24/23 at 190 Given 02/24/2023 6:33 PM CDT 30 mg Left Deltoid magnesium oxide (MAG-OX) tablet 800 mg 800 mg, Oral, ONCE, 1 dose, On Mon02/24/23 at 1929 Given 02/24/2023 7:14 PM CDT 800 mg metoclopramide (REGLAN) tablet 10 mg 10 mg, Oral, ONCE, 1 dose, On Mon02/24/23 at 1929 Given 02/24/2023 7:14 PM CDT 10 mg documented in this encounter Active and Recently Administered Medications Times are shown in CDT. Scheduled Medication Order 02/22/2023 02/23/2023 02/24/2023 0.9 % sodium chloride solution (COMPLETED) at 999 mL/hr, Intravenous, ONCE, 1 dose, On Mon02/24/23 at 1929 1914 (New Bag - Prov ider: Stewart Mancia RN)1999 (Stopped - Provider: Stewart Mancai RN) dexamethasone (DECADRON) injection 10 mg (COMPLETED) 10 mg, Intravenous, ONCE, 1 dose, On Mon02/24/23 at 1929 1915 (Given - Provid er: Stewart Mancia RN) ketorolac (TORADOL) injection 30 mg (COMPLETED) 30 mg, Intramuscular, ONCE, 1 dose, On Mon02/24/23 at 1899 1832 (Given - Provid er: Sabina Sigala RN) magnesium oxide (MAG-OX) tablet 800 mg (COMPLETED) 800 mg, Oral, ONCE, 1 dose, On Mon02/24/23 at 1929 1913 (Given - Provid er: Stewart Mancia RN) metoclopramide (REGLAN) tablet 10 mg (COMPLETED) 10 mg, Oral, ONCE, 1 dose, On Mon02/24/23 at 1930 1914 (Given - Provid er: Stewart Mancia RN) documented in this encounter Care Teams Parking Inspector Relationship Specialty Start Date End Date Leticia Yoder MD [address] [place] [address] PCP - General Pediatrics 03/09/21 documented as of this encounter
--- OUTSIDE RECORDS SUMMARY | 2024-05-29 23:32 | XMS_ITS | Encounter Summary ---
Author Organization [facility] Care Team Providers Care Tools And Parts Attendant Name Role Phone Leticia Yoder MD Primary Care Provider Encounter Details Date Type Department Care Team (Latest Contact Info) Description 02/24/2023 Travel Social History Tobacco Use Types Packs/Day [...] PM CDT documented as of this encounter Plan of Treatment Not on file documented as of this encounter Visit Diagnoses Not on filedocumented in this encounter Care Teams Tools And Parts Attendant Relationship Specialty Start Date End Date Leticia Yoder MD [address] [place] [address] [address] [facility] [place] [address] PCP - General Pediatrics 03/09/21 documented as of this encounter
--- OUTSIDE RECORDS SUMMARY | 2024-05-29 23:32 | XMS_ITS | Encounter Summary ---
Author Organization [facility] Address [address] [place] [address] Care Team Providers Care Organ Builder Name Role Phone Leticia Yoder MD Primary Care Provider Reason for Visit * Reason Onset Date Comments Surgery Scheduling 05/05/2015 Encounter Details Date Type Department Care Team (Late st Contact Info) Description 05/05/2015 Telephone [facility] Pediatrics - Plastic Surgery Division of Plastic Surgery [address] [place] [id number] Dandy Guzmán MD Need updated address Surgery Scheduling Social History Tobacco Use Types Packs/Day Years Used Date Smoking Tobacco: Never Assessed Sex and Gender Information Value Date Recorded Sex Assigned at Not on file Gender Identity Not on file Sexual Orientation Not on file documented as of this encounter Miscellaneous Notes * Telephone Encounter - Александр Fabian - 05/05/2015 11:46 AM CST Spoke with Neel (Mother) of Jerrod of [facility] surgery date of 06/29/2015. Александр K MASON documented in this encounter Plan of Treatment Not on file documented as of this encounter Visit Diagnoses Not on filedocumented in this encounter Care Teams Organ Builder Relationship Specialty Start Date End Date Leticia Yoder MD PCP - General 08/14/14 documented as of this encounter
--- OUTSIDE RECORDS SUMMARY | 2024-05-29 23:32 | XMS_ITS | Encounter Summary ---
Author Organization [facility] Address [address] [place] [address] Care Team Providers Care Recruiting Specialist Name Role Phone Leticia Yoder MD Primary Care Provider Reason for Visit * Reason Comments Evaluation growth on right jaylen k x 6 months Encounter Details Date Type Department Care Team (Late st Contact Info) Description 08/26/2014 11:19 AM CDT - 08/26/2014 11:59 PM CDT Hospital Encounter [facility] - Plastic Surgery Division of Plastic Surgery [address] [place] [id number] Dandy Guzmán MD Need updated address Discharge Disposition: Home or Self Care Social [...] - Inhaled Oxygen Concentration - - Weight 36.1 kg (79 lb 9.4 oz) 5 11:20 AM CDT Height 144.5 cm (4' 8.89 ) 08/26/2014 1 1:20 AM CDT Body Mass Index 17.29 08/26/2014 11:20 AM CDT Body Mass Index Percentile 58.58% 08/26 11:20 AM CDT Growth Chart: [facility] (Girls, 2- 20 Years) documented in this encounter Progress Notes * Dandy Guzmán MD - 08/26/2014 9:37 PM CDT Attending Physician: Dandy Guzmán MD Office Division of Pediatric Plastic Surgery 08/26/2014 9:37 PM Attending MD Note - Dandy Guzmán MD 08/26/2014 9:37 PM Patient seen and examined. Previous notes from my team have been reviewed and discussed. In my attending note below, I have confirmed these findings other than where revisions were made: PLASTIC SURGERY outpatient note Chief Complaint Patient presents with ??? Evaluation growth on right cheek x 6 months Lesion on right cheek HISTORY OF PRESENT ILLNESS Jerrod Harris is 8 y.o. female here for evaluation of right [...] lesion, the patient has not seen a it applications analyst. PAST MEDICAL AND SURGICAL HISTORY No significant previous medical or surgical history. No Known Allergies No current outpatient prescriptions on file. FAMILY HISTORY Family history was reviewed and did not contain significant diseases that affected the current chief complaint. SOCIAL HISTORY Has a family household. Primary language is Micronesian. REVIEW OF SYSTEMS Constitutional: no fevers, chills [...] rashes, macules, or papules ASSESSMENT AND PLAN 8yoF with right cheek lesion, likely pyogenic granuloma by exam. This lesion is at risk for bleeding. This lesion significantly affects the patient, therefore it can affect social development and interaction with other people. Recommend excisional biopsy. We went over the details of excisions. They understand that all excisions will lead to scars, that scars never disappear but should fade slightly with time, and that scars must be longer than the lesion in order for the scar to lay flatter. They understand that children have more difficulty with scar formation because they are fast growers and create more scar tissue or redness, they have few wrinkles to help camouflage scars, and that they are less compliant with scar management such as decreased activity, taping, or scar massage. After discussing risks, benefits, alternatives, and consequences and answering all questions, mother gives informed consent and wishes to proceed with excisional biopsy in OR. Family understands the above and all questions were answered. They know how to reach us earlier if any questions or concerns. Dandy Guzmán MD CC: Leticia Galaviz [address] [place] [address] / [facility] [id number] Date: 08/26/2014 9:37 PM * Chacho Blue MD - 08/26/2014 12:16 PM CDT PLASTIC SURGERY outpatient note Chief Complaint Patient presents with ??? Evaluation growth on right cheek x 6 months Lesion on right cheek HISTORY OF PRESENT ILLNESS Jerrod Harris is 8 y.o. female here for evaluation of right [...] lesion, the patient has not seen a it applications analyst. PAST MEDICAL AND SURGICAL HISTORY No past medical history on file. No past surgical history on file. No Known Allergies No current outpatient prescriptions on file. FAMILY HISTORY NC SOCIAL HISTORY NC REVIEW OF SYSTEMS Constitutional: no fevers, chills Craniomaxillofacial: as above Ophthalmologic: Negative Otolaryngologic: Negative Musculoskeletal: Negative Neurologic: Negative PHYSICAL EXAM General: alert, interactive, no acute distress Head and Face: NCAT Eyes: pupils equally round and move synchronously Inner Ear, Inner Nose, Inner Throat: moist mucous membranes R cheek with approximately 5 mm pedunculated lesion without sign of infection, bleeding, drainage; no surrounding skin changes or sign of trauma CV: RRR Resp: unlabored breathing, CTAB Abd: soft, ntnd, no r/g Ext: wwp ASSESSMENT AND PLAN 8yF with right cheek lesion, likely pyogenic granuloma: -will plan for excision in OR Chacho Blue MD 12:15 PM 08/26/2014 documented in this encounter Plan of Treatment Not on file documented as of this encounter Visit Diagnoses Not on filedocumented in this encounter Care Teams Recruiting Specialist Relationship Specialty Start Date End Date Leticia Yoder MD PCP - General 08/14/14 documented as of this encounter
--- OUTSIDE RECORDS SUMMARY | 2024-05-29 23:33 | XMS_ITS | Continuity of Care Document ---
Author Organization [facility]HEW [address] [facility] [place] [address] Care Team Providers Care Gutter Mouth Cutter Name Role Phone MARY CHAPMAN Primary Care Provider [phone] Assessment No assessment recorded. Plan of Treatment Reminders Order Date Submit Date Provider Last Modified By Organization Details Last Modified Time Details Appointments ANY 15 2024 11:00A M Shelley Sauer, JOSÉ-C Not available Not available Not available Lab None recorded . Referral None recorded . Procedures None recorded . Surgeries None recorded . Imaging None recorded . Medication Orders 07/01 (28) 1 mg-20 mcg (21)/75 mg (7) tablet 2023 024 [id number], [address], [place], [place], [id number], 04/17/2024 12:26:01 Patient TargetsNo targets recorded. Patient InstructionsNo instructions recorded. Reason for Referral None Reported. Problems Name Problem SNOMED Code Status Onset Date Resolution Date Notes Provider Name and Address Organization Details Recorded Time Dysmenorrhea 842424735 Active 2018 Not Available [facility] 3 00:47:24 Dysuria 65646363 Active 2018 Not Available [facility] 3 00:47:24 Pyogenic granuloma 890346850 Active Not Available [facility] 3 00:47:24 Acute urinary tract infection 009543608 Active 2022 MARY CHAPMAN MD Attn: [place], [address] , [facility] 12:44:27 Problem Notes None recorded. Procedures Surgical History Date Name Laterality Status Provider Name and Address Organization Details Recorded Time procedure on shoulder completed Lori Varma MA [facility] 10/28/2022 15:09:57 tonsillectomy completed Lori Varma MA [facility] 10/28/2022 15:10:17 Imaging Results None recorded. Procedure [...] 4 162.56 cm 24 kg/m2 73 % 51574.2 1 g 116 mm[Hg] 76 mm[Hg] Lisa Barclay MA [place] [facility] 12:00:47 Social History Question Answer Notes LastModified by Organizat ion Details LastModified Time Tobacco Smoking Status Never Smoker Carmen Penn MA null, [place] - [place] 10/14/2015 15:04:54 Do You Have An Advance [...] available 06/21/2018 Do You Participate In Social Coshared? Yes Information not available 03/15/2021 What Types [...] or Eye Problems N Head Injury/Concussion N Infertility N Polyps N Acid Reflux (GERD) N Cancer N ADHD N Endometriosis N Bladder or Kidney Problems N High Cholesterol N Liver Disease N Headaches N Ear or Hearing Problems N Kidney or Bladder Problems N Thyroid Problems N GI Problems N Acne N Eating Disorder N Skin Problems N Anemia N Constipation N Ovarian Cancer N Diabetes N Bedwetting N Blood Transfusions N Seizures/Epilepsy N Heart Problems/Murmur N Abuse/Domestic Violence N Asthma N Allergies N Hepatitis N Heart Disease N Pre-Eclampsia N Chicken Pox N Autism Spectrum Disorder (ASD) N Osteoporosis N Gynecological History Statement/Question Response Flow Light Frequency of Cycle (Q days) 28 Date of LMP 04/10/2023 Sexually Active? Y Menses Monthly N STIs/STDs Y Sexual Problems? N Duration of Flow (days) 9 Current Control Method Depo-Restaurant Host a Age at Menarche 11 LMP Approximate Obstetrics History GPAL:G 1 P 0 0 1 0 Type Value Induced 1 Total 1 Immunizations Vaccine Type Date Status Note Provider Nam e and Address Organization Details Recorded Time Tdap 6 completed Not Available [facility] 06/29/2019 02:29:58 HPV9 6 completed Not Available [facility] 06/29/2019 02:32:04 Hep A, ped/adol, 2 dose 6 completed Not Available [facility] 06/29/2019 02:44:47 Meningococcal MCV4O 6 completed Not Available [facility] 06/29/2019 02:39:51 Influenza, split virus, quadrivalent, preservative 0 completed Not Available [facility] 02/25/2023 00:47:24 HPV9 6 completed Not Available [facility] 06/29/2019 02:32:04 MMRV 7 completed Not Available [facility] 02/25/2023 00:47:24 pneumococcal conjugate PCV 7 5 completed Not Available [facility] 02/25/2023 00:47:24 pneumococcal conjugate PCV 7 5 completed Not Available [facility] 02/25/2023 00:47:24 DTaP-IPV 0 completed Not Available [facility] 02/25/2023 00:47:24 influenza, split (incl. purified surface antigen) 8 completed Not Available [facility] 02/25/2023 00:47:24 DTaP-Hep B-IPV 5 completed Not Available [facility] 02/25/2023 00:47:25 DTaP-Hep B-IPV 5 completed Not Available [facility] 02/25/2023 00:47:25 DTaP-Hep B-IPV 5 completed Not Available [facility] 02/25/2023 00:47:25 HPV9 7 completed Not Available [facility] 06/29/2019 02:46:03 Influenza, split virus, quadrivalent, PF 9 completed Not Available [facility] 06/29/2019 02:44:21 meningococcal MCV4P 1 completed Leticia Yoder MD Attn: Accounting[address] [place], [address], [place] [facility] 03/15/2021 13:52:28 meningococcal B, OMV 1 completed Leticia Yoder MD Attn: Accounting[address] [place], [address], [place] [facility] 03/15/2021 13:52:28 Influenza, split virus, quadrivalent, PF 1 completed Leticia Yoder MD Attn: Accounting[address] [place], [address], [place] [facility] 03/15/2021 13:52:28 Hep B, adolescent or pediatric 5 completed Not Available [facility] 02/25/2023 00:47:24 IPV 5 completed Not Available [facility] 02/25/2023 00:47:24 Hib, unspecified formulation 7 completed Not Available [facility] 02/25/2023 00:47:24 varicella 0 completed Not Available [facility] 02/25/2023 00:47:24 DTaP 5 completed Not Available [facility] 02/25/2023 00:47:25 pneumococcal conjugate PCV 7 5 completed Not Available [facility] 02/25/2023 00:47:24 DTaP 5 completed Not Available [facility] 02/25/2023 00:47:25 DTaP 5 completed Not Available [facility] 02/25/2023 00:47:25 IPV 5 completed Not Available [facility] 02/25/2023 00:47:24 MMR 0 completed Not Available [facility] 02/25/2023 00:47:24 influenza, unspecified formulation 7 completed [facility] 00:47:24 varicella 7 completed [facility] 02/25/2023 00:47:24 Hib, unspecified formulation 5 completed Not Available [facility] 02/25/2023 00:47:24 DTaP 7 completed Not Available [facility] 02/25/2023 00:47:25 Hep B, adolescent or pediatric 5 completed Not Available [facility] 02/25/2023 00:47:24 Hep B, adolescent or pediatric 5 completed Not Available [facility] 02/25/2023 00:47:25 influenza, unspecified formulation 8 completed Not Available [facility] 02/25/2023 00:47:24 MMR 7 completed Not Available [facility] 02/25/2023 00:47:24 pneumococcal conjugate PCV 7 7 completed Not Available [facility] 02/25/2023 00:47:24 Hep A, ped/adol, 2 dose 9 completed Not Available [facility] 02/25/2023 00:47:25 DTaP 0 completed Not Available [facility] 02/25/2023 00:47:25 IPV 0 completed Not Available [facility] 02/25/2023 00:47:24 Hep B, adolescent or pediatric 5 completed Not Available [facility] 02/25/2023 00:47:24 Hib, unspecified formulation 5 completed Not Available [facility] 02/25/2023 00:47:24 Past Encounters Encounter ID Performer Location Encounter Start Date Encounter Closed Date Diagnosis/Indication Diagnosis SNOMED-CT Code Diagnosis ICD10 Code [id number] KRISTI Obando [address] [place] [address] 04/17/2024 11:45:04 04/19/2024 10:48:39 Contraception care management 112098120 Z30.9 Health Concerns Section Related Observation LastModified by Organization Detai ls LastModified Time None Recorded Concern Status LastModified by Organization Details LastModified Time None Recorded Payers Encounter Date Sequence Insurance Name Policy Number Policy Olson Covered Member ID Olson Member ID Guarantor Name 04/17/2024 2 [place]: [facility] Jerrod Harris [id number] Juliet Anderson 04/17/2024 1 UMR (PPO) [id number] Asif Harris [id number] Juliet Anderson Notes Date Note Type Note Provider Name and Address Organization Details Recorded Time 04/17/2024 text/html Pt is here for depo but she is wanting to switch back to [facility]. Pt does not like getting injection every 3 month. Pt denies any other concerns. KRISTI Obando Attn: Accounting[address] [place], [address], [facility] 04/17/2024 12:36:21 OBGyn Episode No OBEpisode recorded.
== END 2024-05-25 16:28 | disposition home or self-care (01) ==
PROVIDERS: Emergency Provider Nurse Practitioner Family; PCP Pediatrics
DX: R11.0 Nausea (principal)
CPT/HCPCS: 99213; G0463

== ENCOUNTER 2025-05-25 11:30 | Emergency (ER) | payer OTHER, SELFPAY ==
[2025-05-25 11:36] VITALS: BP 140/90; PULSE 83; RESP 16; TEMP 36.4; O2SAT 100
--- OUTSIDE RECORDS SUMMARY | 2025-05-25 11:37 | XMS_ITS | Clinical Summary ---
Author Organization [facility] Address [address] [place] [address] Care Team Providers Care Senior Fund Accountant Name Role Phone Myesha Steward PA-C Unavailable [phone] Source Comments [facility],non-owned Affiliates and Associated Physician Practices is amultiple site organization consisting of ambulatory clinics and hospital sitesin [place], [place], [place] and [place]. This disclosure is being madepursuant to the Care Everywhere program and may not contain all information available regarding this patient. Last updated 18.[facility] Allergies No known active allergies Medications * Be aware that medications may not be up to date on this document. Alwaysverify current medications with the patient. 07/01 1-20 MG-MCG tablet Take 1 tablet by mouth once daily 10/03/2019 Active aspirin-acetami nophen-caffeine 250-250-65 MG tablet Take by mouth every [...] 02/08/2018 Assessment & Plan (04/24/2020 4:18 PM PHLEBOTOMY SUPPORT TECH): 14 year old with hx of chr [...] of Binge Drinking Not on file 05/12 Comments No Sex and Gender Information Value Date Recorded Sex Assigned at Not on file Legal Sex Female 5:44 AM PHLEBOTOMY SUPPORT TECH Gender Identity Not on file Sexual Orientation Not on file Last Filed Vital Signs Vital Sign Reading Time Taken Comments Blood Pressure 131/86 12/30/2024 4:53 PM CDT Pulse 87 12/30/2024 4:53 PM CDT Temperature 36.6 C (97.8 F) 12/30/2024 4:57 PM CDT Respiratory Rate 18 12/30/2024 4:53 PM CDT Oxygen Saturation 99% 12/30/2024 4:53 PM CDT Inhaled Oxygen Concentration - - Weight 55.2 kg (121 lb 11.1 oz) 05/22/2020 2:07 PM PHLEBOTOMY SUPPORT TECH Height 164 cm (5' 4.57) 05/14/2020 7:56 AM PHLEBOTOMY SUPPORT TECH Body Mass Index - - Plan of Treatment Health Maintenance Due Date Last Done Comments HIV SCREENING 10/07/2019 HPV VACCINE (1 - 3-dose series) 10/07/2019 CHLAMYDIA/GONORRHEA SCREENING 2020 MENINGOCOCCAL (Group B) VACCINE SHARED DECISION-MAKING (1 of 2 - Standard) 2020 HEPATITIS C SCREENING 10/02/2022 DTAP/TDAP/TD VACCINES (1 - Tdap) 10/07/2023 HEPATITIS B VACCINE (1 of 3 - 19+ 3-dose series) 10/07/2023 DEPRESSION SCREENING 06/12/2024 COVID-19 VACCINE (1 - 2024- season) 2025 INFLUENZA VACCINE (#1) 2025 , 02/27/2020, 09/12/2018, Additional history exists ZOSTER VACCINE (1 of 2) 2054 HIB VACCINE Aged Out No longer eligi ble based on patient's age to complete this topic MENINGOCOCCAL GROUPS A/C/Y/W VACCINE Aged Out No longer eligible based on patient's age to complete this topic PNEUMOCOCCAL VACCINE Aged Out No long er eligible based on patient's age to complete this topic Insurance [facility] MEDICAID - [place] [facility] [address] [place], [place] [address] Care Teams Senior Fund Accountant Relationship Specialty Start Date End Date Myesha Steward PA-C [facility] [address] [place] [address] Physician Dairy Cattle Farm Worker 02/20/19
--- OUTSIDE RECORDS SUMMARY | 2025-05-25 11:37 | XMS_ITS | Clinical Summary ---
Author Organization [facility] Address [address] [place] [address] Phone Care Team Providers Care Die Polisher Name Role Phone Cristalgeovanny Rosy Deangelo [place] CNP Primary Care Provider [phone] Allergies No known active allergies Medications aspirin-acetamin ophen-caffeine (EXCEDRIN) 250-250-65 MG Tablet Take by mouth. Active Active Problems Problem Noted Date Diagnosed Date Arthritis Encounters Date Type Department Care Team Description 03/06/2025 Patient Outreach [facility] [address] [place] [address] Navigator, [place] Social Concerns ([facility] Follow up, no MyChart response) from Last 3 Months Social History Tobacco Use Types Packs/Day Years Used Date Smoking Tobacco: Never Smokeless Tobacco: Never Tobacco Cessation:Counseling Given: No Alcohol Use Standard Drinks/Week Comments Never 0 (1 standard drink = 0.6 oz pur e alcohol) PHQ-2 Answer Date Recorded Total Score - Questions 1-9 0 12/12 Comments No Sex and Gender Information Value Date Recorded Sex Assigned at Not on file Legal Sex Female 9:08 AM CDT Gender Identity Not on file Sexual Orientation Not on file Last Filed Vital Signs Vital Sign Reading Time Taken Comments Blood Pressure 108/72 01/08/2025 9:40 AM CDT Pulse 72 01/08/2025 9:40 AM CDT Temperature 36.6 C (97.8 F) 01/08/2025 9:40 AM CDT Respiratory Rate 16 01/08/2025 9:40 AM CDT Oxygen Saturation 98% 01/08/2025 9:40 AM CDT Inhaled Oxygen Concentration - - Weight 62.1 kg (137 lb) 01/08/2025 9:40 AM CDT Height 160 cm (5' 3) 01/08/2025 9:40 AM CDT Body Mass Index 24.27 01/08/2025 9:40 AM CDT Plan of Treatment Upcoming Encounters Date Type Department Care Team (Late st Contact Info) Description 07/07/2025 9:40 AM HOP WEIGHER Office Visit [facility] - Family Medicine [facility] [address] [place] [address] Oehl, September N, SUPERVISOR [employer], ASSISTANT EDITOR 2 [facility], [address] [place] [address] Health Maintenance Due Date Last Done Comments Hepatitis C Virus (HCV) Screening 2004 Meningococcal B Immunization (2 of 2 - Bexsero SCDM 2-dose series) 09/13/2021 03/15/2021 Influenza Immunization (#1) 2025 10/0 09/2020, 02/27/2020, 09/12/2018, Additional history exists SARS-COV-2 Immunization ( - season) 2025 Respiratory Syncytial Virus (RSV) Immunization (Adult) (1 - 1-dose 75+ series) 10/07/2079 Hepatitis B Immunization Completed 005, 04/07/2005, 02/08/2005, Additional history exists Pneumococcal Immunization Combined Aged Out 10/25/2006, 04/07/2005, 02/08/2005, Additional history exists No longer eligible based on patient's age to complete this topic Measles Mumps Rubella (MMR) Immunization Discontinued 10/02/2009, 10/25/2006, 10/25/2006 Polio (IPV) Immunization Discontinued 010, 10/02/2009, 04/07/2005, Additional history exists Varicella Immunization Completed 0, 10/25/2006, 10/25/2006 DTaP/Tdap/Td Immunization Discontinued 2015, 10/02/2009, 10/02/2009, Additional history exists Hepatitis A Immunization Discontinued 10/14/2015, 12/0 01/2009 TdaP Immunization Completed 10/14/2015 Human Papillomavirus (HPV) Immunization Completed 06/16/2016, 02/12/2016, 10/14/2015 Meningococcal Immunization (ACWY) Completed 03/15/2021, 10/14/2015 Rotavirus Immunization Aged Out No lo nger eligible based on patient's age to complete this topic Insurance [facility] Care Teams Die Polisher Relationship Specialty Start Date End Date Moriah Rosy N, SUPERVISOR SC[employer] ARTS, ASSISTANT EDITOR 2 [facility] [address] [place] [id number] PCP - General Advanced Practice Nurse 01/08/25
[2025-05-25 11:54] LABS: EDUAAPPEAR Cloudy; EDUABILI Negative (Negative); EDUABLOOD Trace (Negative); EDUACOLOR1 Yellow; EDUAGLUCOSE Negative (Negative); EDUAKETONE Negative (Negative); EDUALEUKO 1+ (Negative); EDUANITRATE Negative (Negative); EDUAPH 5.5; EDUAPROTEIN Negative (Negative); EDUASPGRAVITY 1.030; EDUAUROBILI 0.2
--- NOTE | 2025-05-25 11:59 | ED.FEMALEGU ---
HPI - Female Genitourinary General Chief complaint: Urogenital-Female Stated complaint: poss uti Time Seen by Provider: 05/25/25 11:51 Source: patient and RN notes reviewed Mode of arrival: ambulatory Limitations: no limitations History of Present Illness HPI Narrative: 19-year-old female patient presents today complaining of dysuria and urinary frequency with some mild suprapubic discomfort that started this morning. Denies fever, back pain, hematuria. No OTC treatment prior to arrival. Related Data Allergies Allergy/AdvReac Type Severity Reaction Status Date / Time No Known Allergies Allergy Verified 05/25/25 11:42 PMFSH Past Medical History Medical History Depression Ear infection Strep throat Social History Social History Living arrangements: with family Occupation/Education: student Gender identity (if verbalized by the patient): Female Comments At time of signature, I have reviewed and agree with nursing past medical, surgical, social and family history unless otherwise noted. Please see nursing chart for further information. There is no relevant family history pertinent to the presenting complaint Exam Narrative: GENERAL: Well-appearing, well-nourished, and in no acute distress. HEAD: Normocephalic, atraumatic. EYES: EOMI. No redness or drainage. Conjunctivae normal. ENT: Mucous membranes pink and moist. NECK: Normal AROM. CHEST: No respiratory distress. Clear to auscultation. HEART: Regular rate and rhythm. No murmur appreciated. ABDOMEN: Soft, nondistended, normal active bowel sounds.+ suprapubic area tender to palpation without rebound or guarding.-CVAT EXTREMITIES: Normal range of motion. No edema. SKIN: Warm, dry, no rash. Capillary refill normal. Normal skin turgor. NEURO: No focal deficits. Alert and oriented x3. Gait steady. PSYCH: Normal affect. No signs of depression or anxiety. Course Course Level of Care: Express Care Visit Vital Signs Vital signs: Vital Signs Temperature 97.5 F L 05/25/25 11:36 Pulse Rate 83 05/25/25 11:36 Respiratory Rate 16 05/25/25 11:36 Blood Pressure 140/90 05/25/25 11:36 Pulse Oximetry 100 05/25/25 11:36 Oxygen Delivery Room Air 05/25/25 11:36 Temperature 97.5 F L 05/25/25 11:36 Pulse Rate 83 05/25/25 11:36 Respiratory Rate 16 05/25/25 11:36 Blood Pressure 140/90 05/25/25 11:36 Pulse Oximetry 100 05/25/25 11:36 Oxygen Delivery Room Air 05/25/25 11:36 Reviewed MDM MDM Narrative Medical decision making narrative: 19-year-old female patient presents today complaining of dysuria and urinary frequency with some mild suprapubic discomfort that started this morning. Denies fever, back pain, hematuria. No OTC treatment prior to arrival. Upon exam, patient has tenderness to suprapubic area without CVAT. Urinalysis shows trace blood and 1+ leukocytes. Culture pending. She will be treated for acute UTI with Keflex. Patient agrees with plan. Vital signs stable. Anticipatory guidance given. Differential Diagnosis Differential Diagnosis: UTI, pyelonephritis, vulvovaginitis Lab Data Labs: Lab Results 05/25/25 Range/Units 11:46 POC Urine Color Yellow POC Urine Clarity Cloudy POC Urine pH 5.5 POC Ur Specif Allen 1.030 POC Urine Protein Negative (Negative) POC Ur Glucose (UA) Negative (Negative) POC Urine Ketones Negative (Negative) POC Urine Blood Trace (Negative) POC Urine Nitrite Negative (Negative) POC Urine Bilirubin Negative (Negative) POC Urine Urobilinogen 0.2 POC U Leukocyte Esteras 1+ (Negative) Critical Care Time Critical Care Time Critical Care Time: No Discharge Plan Discharge Clinical Impression: Urinary tract infection Qualifiers: Urinary tract infection type: acute cystitis Hematuria presence: with hematuria Qualified Code(s): N30.01 - Acute cystitis with hematuria Patient Disposition: Home Condition: Stable Instructions: Antibiotic Form, Urinary Tract Infection in Women (DC) Additional Instructions: Your urine shows infection today. Take Keflex as prescribed until gone. Your urine will be sent of for a culture to identify what type of bacteria is causing your infection. If the culture shows that your medication will not get rid of your infection, you will be notified and a new antibiotic will be called in for you. If your symptoms worsen to include fever, sweats, chills, nausea, vomiting, severe abdominal or back pain, please go to the ER for further evaluation. You may try some nipu-yek-uyahqev medication for your symptoms such as cranberry pills or Azo. Patient Language: Taiwanese Prescriptions: New cephalexin 500 mg capsule 500 mg PO Q6H 7 Days Qty: 28 0RF Follow-up/Referrals: PHYSICIAN,RECOVERY ASSISTANT [Primary Care Provider, Internal Medicine] Time of Disposition: 11:59
== END 2025-05-25 12:03 | disposition home or self-care (01) ==
PROVIDERS: Emergency Provider Nurse Practitioner
DX: N30.01 Acute cystitis with hematuria (principal)
CPT/HCPCS: 81003; 87086; 99213; G0463